=== PATIENT | female | born 1945 | race Caucasian/White ===

== ENCOUNTER 2018-03-21 19:43 | Emergency (ER) | payer OTHER ==
--- OUTSIDE RECORDS SUMMARY | 2018-03-21 19:45 | XMS REPORT | Clinical Summary ---
:1945 Author Organization [facility] Address [address] [place] [address] Care Team Providers Name Role Phone Darrell Nails MD Primary Care Provider Allergies Active Allergy Reactions Severity Noted Date Comments No Known Drug Allergies 08/17/2016 Current Medications Prescription Sig. Disp. Refills Start Date End Date Status alendronate Once a week Active (FOSAMAX) 35 MG tablet aspirin (ECOTRIN) daily Active 81 MG enteric coated tablet coenzyme Q10 200 mg Take 1 Active capsule capsule every day by oral route. 100 mg levothyroxine daily Active (SYNTHROID, LEVOXYL) 150 mcg tablet OMEGA-3 FATTY 1000 mg 1 po Active ACIDS/FISH OIL qd (OMEGA 3 FISH OIL ORAL) raloxifene (EVISTA) daily Active 60 mg tablet cholecalciferol, Take 2,000 Active vitamin D3, Units by (VITAMIN D3) 2,000 mouth daily. unit capsule capsule CYANOCOBALAMIN, Take by Active VITAMIN B-12, mouth. 2500 (VITAMIN B-12 ORAL) mcg per day NAMENDA XR 28 mg TAKE ONE 90 capsule 3 06/08/2017 Active capsule,sprinkle,ER CAPSULE BY 24hr MOUTH EVERY DAY donepezil (ARICEPT) TAKE ONE 30 tablet 11 07/04/2017 Active 10 MG tablet TABLET BY MOUTH ONCE DAILY sertraline (ZOLOFT) Take 2 60 tablet 5 09/24/2017 03/23/2018 Active 50 MG tablets (100 tabletIndications: mg total) by Dementia without mouth daily behavioral for 180 days. disturbance, unspecified dementia type memantine (NAMENDA daily 06/07/2017 Discontinued XR) 28 mg capsule,sprinkle,ER 24hr sertraline (ZOLOFT) 1.5 tablets 08/05/2017 Discontinued 50 MG tablet bid donepezil (ARICEPT) TAKE ONE 30 tablet 5 12/10/2016 06/07/2017 Discontinued 10 MG tablet TABLET BY MOUTH ONCE DAILY donepezil (ARICEPT) TAKE ONE 30 tablet 5 06/07/2017 09/24/2017 Discontinued 10 MG tablet TABLET BY MOUTH ONCE DAILY sertraline (ZOLOFT) TAKE 1 AND 270 tablet 4 08/06/2017 09/24/2017 Discontinued 50 MG tablet 1/2 TABLET BY MOUTH TWICE A DAY Active Problems Problem Noted Date Anosognosia 08/17/2016 Anxiety 08/17/2016 Aphasia 08/17/2016 Cerebral degeneration 08/17/2016 Symptom or sign involving cognitive function and awareness 08/17/2016 Dementia of frontal lobe type 08/17/2016 Depression 08/17/2016 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 Mixed anxiety depressive disorder 08/17/2016 Progressive aphasia 08/17/2016 Encounters Date Type Specialty Care Team Description 09/24/2017 Office Visit Neurology Brant Adams MD Dementia without behavioral disturbance, unspecified dementia type (Primary Dx); 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 Orders Only Neurology Clarisa Brady RN Hypothyroidism, unspecified type (Primary Dx); Memory impairment; Anemia due to vitamin B12 deficiency, unspecified B12 deficiency type 08/05/2017 Refill Neurology Brant Adams MD 07/04/2017 Refill Neurology Aneesh Briseno DO 06/07/2017 Refill Neurology Brant Adams MD 06/07/2017 Refill Neurology Aneesh Briseno DO 04/02/2017 Office Visit Neurology Aneesh Briseno DO Primary progressive aphasia (Primary Dx); Brant Adams MD Mixed anxiety depressive disorder; Frontotemporal dementia after 03/20/2017 Family History Medical History Relation Name Comments Mental illness Brother Lung cancer Father Relation Name Status Comments Brother Father Social History Tobacco Use Types Packs/Day Years Used Date Never Smoker Smokeless Tobacco: Never Used Alcohol Use Drinks/Week oz/Week Comments No Sex Assigned at Date Recorded Not on file Last Filed Vital Signs Vital Sign Reading Time Taken Blood Pressure 109/63 09/24/2017 10:50 AM STUDY DIRECTOR Pulse 76 09/24/2017 10:50 AM STUDY DIRECTOR Temperature - - Respiratory Rate 16 04/02/2017 10:20 AM CDT Oxygen Saturation - - Inhaled Oxygen Concentration - - Weight 74.2 kg (163 lb 8 oz) 09/24/2017 10:49 AM STUDY DIRECTOR Height 167.6 cm (5' 6") 09/24/2017 10:49 AM STUDY DIRECTOR Body Mass Index 26.39 09/24/2017 10:49 AM STUDY DIRECTOR Plan of Treatment Date Type Specialty Care Team Description 03/26/2018 Office Visit Neurology Brant Adams MD [address] [facility] [address] [place] [address] Health Maintenance Due Date Last Done Comments COLONOSCOPY 1995 MAMMOGRAM 1995 SHINGRIX VACCINE (#1) 1995 ZOSTER VACCINE 2005 PNEUMOCOCCAL POLYSACCHARIDE VACCINE AGE 65 AND OVER 2010 PNEUMOCOCCAL-13 2010 INFLUENZA VACCINE 06/12/2018 Results Not on fileafter 03/20/2017 Insurance Payer Benefit Plan / Group Subscriber ID Type Phone Address MEDICARE MEDICARE PART A AND B xxxxxxxxxx Medicare [place], [place] [employer]NA [employer] INDEMNITY xxxxxxxxx Indemnity [phone] [place] [id number]
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
--- NOTE | 2018-03-21 20:54 | RAD REPORT ---
EXAM DESCRIPTION: CT - CTFB CLINICAL HISTORY: Trauma, right-sided facial pain and swelling. COMPARISON: None. TECHNIQUE: Axial 2 mm thick images of the face were obtained with sagittal and coronal reconstructio n images. All CT scans are performed using dose optimization technique as appropriate and may include automated exposure control or mA/KV adjustment according to patient size. FINDINGS: Fractures of the maxillary sinus castillo are noted, including the posterior wall, anterior w all and inferior orbital rim. Moderate hemorrhagic material seen within the right maxillary antrum an d right ethmoid air cells.The paranasal sinuses and mastoids are otherwise clear.The mandible is inta ct. No globe injury is suspected. No vitreous abnormality seen.Skull base appears intact. Moderate right- sided facial soft tissue swelling. IMPRESSION: Right maxillary sinus fractures as detailed.
[2018-03-21 21:04] LABS: Absolute Lymphocytes (CBC) 1.7 K/uL (0.7-4.9); Absolute Monocytes 0.6 K/uL (0.1-1.3); Absolute Neutrophil 7.8 K/uL (1.8-8.0); Basophils % 0.7 % (0-1.3); Hematocrit 40.5 % (36.0-45.0); Lymphocytes % 16.4 % (15.3-44.8); MCH 31.5 pg (27.0-35.0); MCV 92.5 fL (80-100); MPV 7.8 fL (7.6-11.3); Monocytes % 5.9 % (3.3-12.3); RBC Red Blood Cell Count 4.38 M/uL (3.86-4.86)
[2018-03-21 21:06] LABS: Potassium 4.5 mEq/L (3.6-5.0)
[2018-03-21 21:14] LABS: Protime INR 0.95
[2018-03-21] MEDS ORDERED: AMOX/K CLAV 875 MG TAB ONE (21:17)
[2018-03-21] MEDS ORDERED: DERMABOND SKIN ADHESIVE TOP ONE (21:33)
[2018-03-21 22:31] LABS: Urine Blood 2+ (NEG); Urine Glucose NEGATIVE (NEG); Urine Protein NEGATIVE (NEG); Urine Specific Gravity 1.025 (1.005-1.030); Urine pH 5.5 (5.0-7.0)
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
[2018-03-22 01:10] VITALS: TEMP 98.2
[2018-03-22 01:14] VITALS: O2SAT 96
[2018-03-22 01:15] VITALS: BP 139/75
== END 2018-03-22 01:00 | disposition home or self-care (01) ==
LOC: ER 19:43
PROC: 0JQ10ZZ Repair Face Subcutaneous Tissue and Fascia, Open Approach (ICD-10-PCS; principal; 2018-03-22)
DX: S02.401A Maxillary fracture, unspecified side, initial encounter for closed fracture (principal); S01.81XA Laceration without foreign body of other part of head, initial encounter; N39.0 Urinary tract infection, site not specified; W18.39XA Other fall on same level, initial encounter; Y93.01 Activity, walking, marching and hiking; Y92.008 Other place in unspecified non-institutional (private) residence as the place of occurrence of the external cause; Z79.82 Long term (current) use of aspirin; G30.9 Alzheimer's disease, unspecified; F02.80 Dementia in other diseases classified elsewhere, unspecified severity, without behavioral disturbance, psychotic disturbance, mood disturbance, and anxiety
CPT/HCPCS: 12013; 36415; 70450; 70486; 71250; 72125; 76377; 80048; 81003; 85025; 85610; 85730; 99284; G0168

== ENCOUNTER 2018-03-30 16:08 | Emergency (ER) | payer OTHER ==
--- OUTSIDE RECORDS SUMMARY | 2018-03-30 16:11 | XMS REPORT | Clinical Summary ---
:1945 Author Organization [facility] Address [address] [place] [address] Care Team Providers Name Role Phone Darrell [...] MG tablet TABLET BY MOUTH ONCE DAILY amoxicillin-pot TAKE 1 TABLET 0 03/22/2018 Active clavulanate BY MOUTH (AUGMENTIN) 875-125 EVERY 12 mg per tablet HOURS FOR 10 DAYS traMADol (ULTRAM) Take 50 mg by 0 03/22/2018 Active 50 mg tablet mouth every 8 (eight) hours as needed. carBAMazepine Take 1 tablet 90 tablet 11 03/26/2018 03/26/2019 Active (TEGretol) 200 mg (200 mg tabletIndications: total) by Seizures mouth 3 (three) times a day. memantine (NAMENDA daily 06/07/2017 Discontinued XR) 28 [...] 1/2 TABLET BY MOUTH TWICE A DAY sertraline (ZOLOFT) Take 2 60 tablet 5 09/24/2017 03/23/2018 50 MG tablets (100 tabletIndications: mg total) by Dementia without mouth daily behavioral for 180 days. 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 08/17/2016 Progressive aphasia 08/17/2016 Encounters Date Type Specialty Care Team Description 03/28/2018 Procedure Pass Neurology 03/27/2018 Ophth Exam Ophthalmology Sandra Santiago MD 03/27/2018 Procedure Pass Neurology 03/26/2018 - [facility] Neurology Kaiser, Multiple falls (Primary Dx); 03/29/2018 Encounter MD Checo Dementia of frontal lobe type 03/26/2018 Hospital Radiology Brant Adams Traumatic injury of Encounter MD Ailin head, sequela 03/26/2018 Hospital Neurology Brant Adams Seizures Encounter MD Ailin 03/26/2018 Hospital Radiology Brant Adams Traumatic injury of Encounter MD Ailin head, sequela 03/26/2018 Office Visit Neurology Brant Adams Traumatic injury of head, sequela (Primary Dx); MD Ailin Seizures; Aphasia; Alzheimer's disease of other onset without behavioral disturbance 03/26/2018 Orders Only General Internal Kaiser, Jorge Kessler MD 03/26/2018 Procedure Pass Radiology 09/24/2017 Office Visit Neurology Brant Adams Dementia without behavioral disturbance, unspecified dementia type (Primary Dx); MD Ailin 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 Orders Only Neurology Arbones, Hypothyroidism, unspecified type (Primary Dx); YAMILET Mckenna Memory impairment; Anemia due to vitamin B12 deficiency, unspecified B12 deficiency type 08/05/2017 Refill Neurology Brant Adams MD 07/04/2017 Refill Neurology Aneesh Briseno, 06/07/2017 Refill Neurology Brant Adams MD 06/07/2017 Refill Neurology Aneesh Briseno, 04/02/2017 Office Visit Neurology Aneesh Briseno, Primary progressive aphasia (Primary Dx); DO Mixed anxiety depressive disorder; Brant Adams Frontotemporal dementia MD Ailin after 03/29/2017 Family History Medical History Relation Name Comments Mental illness Brother Lung cancer Father Relation Name Status Comments Brother Father Social History Tobacco Use Types Packs/Day Years Used Date Never Smoker Smokeless Tobacco: Never Used Alcohol Use Drinks/Week oz/Week Comments No Sex Assigned at Date Recorded Not on file Last Filed Vital Signs Vital Sign Reading Time Taken Blood Pressure 113/65 03/29/2018 11:50 AM CDT Pulse 88 03/29/2018 11:50 AM CDT Temperature 36.1 C (97 F) 03/29/2018 11:50 AM CDT Respiratory Rate 18 03/29/2018 11:50 AM CDT Oxygen Saturation 96% 03/29/2018 11:50 AM CDT Inhaled Oxygen Concentration - - Weight 76.5 kg (168 lb 11.2 oz) 03/26/2018 9:54 AM CDT Height 170.2 cm (5' 7") 03/26/2018 9:54 AM CDT Body Mass Index 26.42 03/26/2018 9:54 AM CDT Plan of Treatment Date Type Specialty Care Team Description 06/26/2018 Office Visit Neurology Brant Adams MD [address] [facility] [address] [place] [address] Health Maintenance Due Date Last Done Comments BREAST CANCER SCREENING 1995 COLON CANCER SCREENING 1995 SHINGRIX VACCINE (#1) 1995 ZOSTER VACCINE 2005 PNEUMOCOCCAL POLYSACCHARIDE VACCINE AGE 65 AND OVER 2010 PNEUMOCOCCAL-13 2010 INFLUENZA VACCINE 06/12/2018 Procedures Procedure Name Priority Date/Time Associated Diagnosis Comments EEG AWAKE/DROWSY Routine 03/26/2018 2:32 PM Seizures Results for this LESS THAN 41 MIN CDT procedure are in the results section. after 03/29/2017 Results Estimated GFR (03/29/2018 5:10 AM)Only the most recent of2 resultswithin the time period is included. Component Value Ref Range GFR Non Af Amer 54 (A) mL/min/1.73 m2 GFR Af Amer 66 mL/min/1.73 m2 Comment: Chronic kidney disease: <60 mL/min/1.73m2 Kidney failure: <15 mL/min/1.73m2 The estimated GFR is calculated from the IDMS-traceable Modification of Diet in Renal Disease Equation. The accuracy of the calculation is poor when the creatinine is normal. Calculated values >90 mL/min/1.73m2 are not reported. This equation has not been validated in children (<18 years), women, the elderly (>70 years), or ethnic groups other than Caucasians and Americans. Specimen Performing Laboratory Plasma specimen [facility] DEPARTMENT OF PATHOLOGY AND GENOMIC MEDICINE [address] [place] [address] CBC with platelet and differential (03/29/2018 5:10 AM)Only the most recent of2 resultswithin the time period is included. Component Value Ref Range WBC 7.59 4.50 - 11.00 k/uL RBC 4.32 4.20 - 5.50 m/uL HGB 13.7 12.0 - 16.0 g/dL HCT 41.3 37.0 - 47.0 % MCV 95.6 82.0 - 100.0 fL MCH 31.7 27.0 - 34.0 pg MCHC 33.2 31.0 - 37.0 g/dL RDW - SD 44.9 37.0 - 55.0 fL MPV 9.2 8.8 - 13.2 fL Platelet count 170 150 - 400 k/uL Nucleated RBC 0.00 /100 WBC Neutrophils 53.4 39.0 - 69.0 % Lymphocytes 37.5 25.0 - 45.0 % Monocytes 5.7 0.0 - 10.0 % Eosinophils 2.6 0.0 - 5.0 % Basophils 0.5 0.0 - 1.0 % Immature granulocytes 0.3Comment: "Immature granulocytes" 0.0 - 1.0 % (promyelocytes, myelocytes, metamyelocytes) Specimen Performing Laboratory Blood [facility] DEPARTMENT OF PATHOLOGY AND [address] [address] Magnesium level (03/29/2018 5:10 AM) Component Value Ref Range Magnesium 2.2 1.6 - 2.4 mg/dL Specimen Performing Laboratory Plasma specimen [facility] DEPARTMENT PATHOLOGY AND [address] [address] Basic metabolic panel (03/29/2018 5:10 AM) Component Value Ref Range Sodium 142 135 - 148 mEq/L Potassium 4.0 3.5 - 5.0 mEq/L Chloride 104 98 - 112 mEq/L CO2 26 24 - 31 mEq/L Anion gap 12@ANIO 7 - 15 mEq/L BUN 13 8 - 23 mg/dL Creatinine 1.0 (H) 0.5 - 0.9 mg/dL Glucose 101 (H) 65 - 99 mg/dL Calcium 8.8 8.8 - 10.2 mg/dL Specimen Performing Laboratory Plasma specimen [facility] DEPARTMENT OF PATHOLOGY AND [address] [address] MRI Brain Wo Contrast (03/28/2018 4:41 PM)Only the most recent of2 resultswithin the time period is included. Specimen Performing Laboratory [address] [address] Narrative EXAMINATION:MRI BRAIN WO CONTRAST CLINICAL HISTORY:MARTÍNEZ PROTOCOL FOR NPH, status post lumbar puncture with 15 mL of CSF removed. COMPARISON:Brain MRI on 03/27/2018 and FDG PET/CT on 10/25/2015. TECHNIQUE: Noncontrast brain MRI, including 3D T1 WARREN and pCASL with PLD of 2.5 seconds. Regional brain segmentation and volumetric analysis was processed with Neuroreader software on an independent workstation and reviewed. FINDINGS: The brain appears structurally stable with no evidence of acute infarction, hemorrhage, mass lesion, or midline shift. Again noted is cerebral volume loss moderately advanced for age, relatively sparing the occipital lobes. Hippocampal volume is within normal limits for age. There is marked ventriculomegaly of the lateral ventricles. There is no extra-axial fluid collection. Right Hippocampus: 3.53 mL, z-score -0.01. Left Hippocampus: 3.31 mL, z-score -0.24. Right Frontal Lobe: 117.6 mL, z-score -2.51. Left Frontal Lobe: 107.0 mL, z-score -2.87. Right Parietal Lobe: 65.6 mL, z-score -2.09. Left Parietal Lobe: 58.4 mL, z-score -2.75. Right Occipital Lobe: 38.9 mL, z-score -0.34. Left Occipital Lobe: 35.5 mL, z-score -0.86. Right Temporal Lobe: 62.1 mL, z-score -2.82. Left Temporal Lobe: 51.6 mL, z-score -3.56. Right Lateral Ventricle: 51.5 mL, z-score 4.00. Left Lateral Ventricle: 76.4 mL, z-score 5.50. Again noted is hypoperfusion of left more than right cerebral hemispheres with relative sparing of the occipital lobes. After lumbar puncture, there is mildly increased cerebral perfusion in the right cerebral hemisphere, mostly along right perirolandic distribution. IMPRESSION: 1. Cerebral volume loss moderately advanced for age associated with hypoperfusion of left more than right cerebral hemispheres. 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 Asymmetric corticobasal degeneration cannot be excluded. 2. Marked ventriculomegaly of the lateral ventricles likely from disproportionate central volume loss although superimposed normal pressure hydrocephalus cannot be excluded. 3. After lumbar puncture, mildly increased cerebral perfusion in the right cerebral hemisphere, mostly along right perirolandic distribution. [facility]-[id number] Procedure Note [facility], Radiology Results Incoming - 03/28/2018 10:24 PM CDT EXAMINATION: MRI BRAIN WO CONTRAST CLINICAL HISTORY: MARTÍNEZ PROTOCOL FOR NPH, status post lumbar puncture with 15 mL of CSF removed. COMPARISON: Brain MRI on 03/27/2018 and FDG PET/CT on 10/25/2015. TECHNIQUE: Noncontrast brain MRI, including 3D T1 WARREN and pCASL with PLD of 2.5 seconds. Regional brain segmentation and volumetric analysis was processed with Neuroreader software on an independent workstation and reviewed. FINDINGS: The brain appears structurally stable with no evidence of acute infarction, hemorrhage, mass lesion, or midline shift. Again noted is cerebral volume loss moderately advanced for age, relatively sparing the occipital lobes. Hippocampal volume is within normal limits for age. There is marked ventriculomegaly of the lateral ventricles. There is no extra-axial fluid collection. Right Hippocampus: 3.53 mL, z-score -0.01. Left Hippocampus: 3.31 mL, z-score -0.24. Right Frontal Lobe: 117.6 mL, z-score -2.51. Left Frontal Lobe: 107.0 mL, z-score -2.87. Right Parietal Lobe: 65.6 mL, z-score -2.09. Left Parietal Lobe: 58.4 mL, z-score -2.75. Right Occipital Lobe: 38.9 mL, z-score -0.34. Left Occipital Lobe: 35.5 mL, z-score -0.86. Right Temporal Lobe: 62.1 mL, z-score -2.82. Left Temporal Lobe: 51.6 mL, z-score -3.56. Right Lateral Ventricle: 51.5 mL, z-score 4.00. Left Lateral Ventricle: 76.4 mL, z-score 5.50. Again noted is hypoperfusion of left more than right cerebral hemispheres with relative sparing of the occipital lobes. After lumbar puncture, there is mildly increased cerebral perfusion in the right cerebral hemisphere, mostly along right perirolandic distribution. IMPRESSION: 1. Cerebral volume loss moderately advanced for age associated with hypoperfusion of left more than right cerebral hemispheres. 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 Asymmetric corticobasal degeneration cannot be excluded. 2. Marked ventriculomegaly of the lateral ventricles likely from disproportionate central volume loss although superimposed normal pressure hydrocephalus cannot be excluded. 3. After lumbar puncture, mildly increased cerebral perfusion in the right cerebral hemisphere, mostly along right perirolandic distribution. [facility]-[id number] IR Lumbar Puncture by Radiology (03/28/2018 10:03 AM) Specimen Performing Laboratory [facility] [address] [place] [address] Narrative EXAMINATION:IR LUMBAR PUNCTURE CLINICAL HISTORY:Normal pressure hydrocephalus COMPARISON:None. FINDINGS: Informed consent was obtained prior to exam. Total fluoroscopy time was 12 seconds. Two images were stored during fluoroscopy to document the site of needle placement. The patient was prepped in a sterile fashion in the prone position. 1% Xylocaine was utilized for local anesthesia. Utilizing fluoroscopic guidance a 22-gauge spinal needle was placed into the subarachnoid space at the L3-4 level. 15 mL of cerebrospinal fluid was withdrawn and sent to the laboratory for analysis. There were no complications. The primary surgeon was Dr. Gramajo. There were no assistants. There was no significant blood loss. The patient was transferred to the recovery room and then back to the floor after she met discharge criteria. IMPRESSION: Successful fluoroscopic-guided lumbar puncture to evaluate normal pressure hydrocephalus. [facility]-[id number] Procedure Note Interface, Radiology Results Incoming - 03/28/2018 11:28 AM CDT EXAMINATION: IR LUMBAR PUNCTURE CLINICAL HISTORY: Normal pressure hydrocephalus COMPARISON: None. FINDINGS: Informed consent was obtained prior to exam. Total fluoroscopy time was 12 seconds. Two images were stored during fluoroscopy to document the site of needle placement. The patient was prepped in a sterile fashion in the prone position. 1% Xylocaine was utilized for local anesthesia. Utilizing fluoroscopic guidance a 22-gauge spinal needle was placed into the subarachnoid space at the L3-4 level. 15 mL of cerebrospinal fluid was withdrawn and sent to the laboratory for analysis. There were no complications. The primary surgeon was Dr. Gramajo. There were no assistants. There was no significant blood loss. The patient was transferred to the recovery room and then back to the floor after she met discharge criteria. IMPRESSION: Successful fluoroscopic-guided lumbar puncture to evaluate normal pressure hydrocephalus. [facility]-[id number] Cryptococcal antigen, screen (03/28/2018 9:57 AM) Component Value Ref Range Cryptococcal Ag Negative - No Cryptococcus antigen detected. Comment: Specimen Information Specimen Source: CSF (Spinal Fluid) Specimen Site: CSF (spinal fluid) Specimen Performing Laboratory Cerebrospinal fluid - CSF (spinal fluid) [facility] DEPARTMENT OF PATHOLOGY AND GENOMIC MEDICINE [address] [place] [address] Oligoclonal banding, CSF (03/28/2018 9:57 AM) Component Value Ref Range Protein, CSF 29 15 - 45 mg/dL Prealbumin, CSF 4.7 3.5 - 11.1 % Albumin, CSF 61.3 40.8 - 66.2 % Alpha 1, CSF 3.8 2.3 - 6.4 % Alpha 2, CSF 8.7 6.1 - 12.6 % Beta, CSF 15.2 11.7 - 24.1 % Gamma, CSF 6.3 5.6 - 12.2 % CSF extended interpretation See CommentComment: No oligoclonal bands are seen. CSF interpretation See CommentComment: Arron Holliday MD; Tremaine Vicente PhD; González Gross MD PhD Specimen Performing Laboratory Cerebrospinal fluid [facility] DEPARTMENT OF PATHOLOGY AND GENOMIC MEDICINE [address] [place] [address] Gram stain (03/28/2018 9:57 AM) Component Value Ref Range Gram stain isolate Rare WBC's No organisms seen Comment: Specimen Information Specimen Source: CSF (Spinal Fluid) Specimen Site: CSF (spinal fluid) Specimen Performing Laboratory Cerebrospinal fluid - CSF (spinal fluid) [facility] DEPARTMENT OF PATHOLOGY AND [address] [address] CSF cell count with differential (03/28/2018 9:57 AM) Component Value Ref Range Color, CSF Colorless Appearance, CSF Clear RBC, CSF 122 (H) 0 - 1 /CMM WBC, CSF 3 0 - 5 /CMM CSF mononuclear cell 3/CMM Specimen Performing Laboratory Cerebrospinal fluid [facility] DEPARTMENT OF PATHOLOGY AND [facility] [address] [place] [address] VDRL, CSF screen (03/28/2018 9:57 AM) Component Value Ref Range VDRL, CSF screen Non-reactive Non-reactive Specimen Performing Laboratory Cerebrospinal fluid [facility] DEPARTMENT OF PATHOLOGY AND [facility] [address] [place] [address] Glucose level, CSF (03/28/2018 9:57 AM) Component Value Ref Range Glucose, CSF 62 40 - 70 mg/dL Specimen Performing Laboratory Cerebrospinal fluid [facility] DEPARTMENT OF PATHOLOGY [address] [address] Syphilis treponemal IgG (03/26/2018 9:20 PM) Component Value Ref Range Syphilis treponemal IgG Non-reactiveComment: Non-reactive: No Non-reactive serological evidence of Syphilis infection Specimen Performing Laboratory Serum [facility] DEPARTMENT OF PATHOLOGY AND [address] [address] SUMMER titer (03/26/2018 9:20 PM) Component Value Ref Range SUMMER titer >1:320 (A) Not-Detected SUMMER titer 1 1:640 (A) Not-Detected SUMMER pattern Centromere (A) Not-Detected Specimen Performing Laboratory Blood [facility] [address] [address] Sedimentation rate (03/26/2018 9:20 PM) Component Value Ref Range Sedimentation rate 11 0 - 20 mm/hr Specimen Performing Laboratory Blood [facility] [address] [address] SUMMER (03/26/2018 9:20 PM) Component Value Ref Range SUMMER screen Positive (A) Negative Specimen Performing Laboratory Blood [facility] [address] [address] Thyroid stimulating hormone (03/26/2018 9:20 PM) Component Value Ref Range TSH 3.79 0.27 - 4.20 uIU/mL Specimen Performing Laboratory Plasma specimen [facility] [address] [address] T4, free (03/26/2018 9:20 PM) Component Value Ref Range T4, free 1.4 0.9 - 1.7 ng/dL Specimen Performing Laboratory Plasma specimen [facility] [address] [address] Folate level (03/26/2018 9:20 PM) Component Value Ref Range Folate 7.8 4.8 - 24.2 ng/mL Specimen Performing Laboratory Serum [address] [address] Vitamin B12 level (03/26/2018 9:20 PM) Component Value Ref Range Vitamin B12 >1600 (H) 211 - 946 pg/mL Comment: Significant overlap exists between normal and deficiency states. However, most patients with deficiencies will have Serum B12 <200 pg/mL. Specimen Performing Laboratory Serum [facility] [address] [address] Ammonia level (03/26/2018 9:20 PM) Component Value Ref Range Ammonia 41 11 - 51 umol/L Specimen Performing Laboratory Blood [facility] [address] [address] Comprehensive metabolic panel (03/26/2018 9:20 PM) Component Value Ref Range Sodium 144 135 - 148 mEq/L Potassium 4.6 3.5 - 5.0 mEq/L Chloride 104 98 - 112 mEq/L CO2 28 24 - 31 mEq/L Anion gap 12@ANIO 7 - 15 mEq/L BUN 18 8 - 23 mg/dL Creatinine 1.1 (H) 0.5 - 0.9 mg/dL Glucose 100 (H) 65 - 99 mg/dL Calcium 9.3 8.8 - 10.2 mg/dL Protein 7.1 6.3 - 8.3 g/dL Comment: [place] 4.6-7.0 g/dL 1 week 4.4-7.6 g/dL 7 months-1year5.1-7.3 g/dL 1-2 years5.6-7.5 g/dL >3 years6.0-8.0 g/dL 18-150 6.3-8.3 g/dL Albumin 3.1 (L) 3.5 - 5.0 g/dL A/G ratio 0.8 0.7 - 3.8 Alkaline phosphatase 40 35 - 104 U/L AST 24 10 - 35 U/L ALT 15 5 - 50 U/L Total bilirubin 0.3 0.0 - 1.2 mg/dL Specimen Performing Laboratory Plasma specimen [facility] DEPARTMENT OF PATHOLOGY AND GENOMIC MEDICINE [address] [place] [address] Outpatient EEG (03/26/2018 2:32 PM) Narrative EEG AWAKE AND DROWSY Date of Service: 03/26/18 Awake Recordings: The occipital dominant rhythm is 6 Hz and is poorly sustained. 4-5 Hz and 1.5-3 Hz activity is present in all regions. 18-22 Hz activity was present in all regions. Sleep Recording: No sleep was recorded. Hyperventilation: Was not performed. Photic Stimulation: Was not performed. Impression: The findings are consistent with a diffuse disturbance in brain function. No seizures occurred. ICD-10 Code: R569 CT Maxillofacial Wo Contrast (03/26/2018 12:45 PM) Specimen Performing Laboratory [address] [address] Narrative EXAMINATION: CT MAXILLOFACIAL WO CONTRAST CLINICAL HISTORY: S09.90XS Unspecified injury of headsequela, RT facial injry from blunt trauma COMPARISON:None TECHNIQUE: Axial noncontrastenhanced images through the maxillofacial bones were obtained with bone and soft tissue algorithms. Coronal and sagittal reconstructions were also performed.CT scans are performed using radiation dose reduction techniques. Technical factors are evaluated and adjusted to ensure appropriate moderation of exposure. Automated dose management technology is applied to adjust radiation exposure while achieving a diagnostic quality image. FINDINGS: There is a large amount of hyperdense material filling the right maxillary sinus consistent with hemorrhage. There is a comminuted fracture through the floor of the right orbit with minimal bone displacement. I do not see definite evidence of muscle entrapment. There is comminuted fracture of the anterior and posterior castillo of the right maxillary sinus with some bone displacement. There is partial opacification of the right ethmoid sinus with nondisplaced fractures of the medial wall of the right orbit. There is comminuted fracture of the lateral wall of the right orbit with some areas of buckling. There are areas of angulation of the distal nasal bones which could be from recent or old fractures. The nasal septum is deviated towards the right. There is mild mucosal thickening in the inferior left maxillary sinus. The study was not performed for proper evaluation of the intracranial structures. IMPRESSION: Comminuted fractures of the floor and lateral castillo of the right orbit with some bone displacement and some buckling of the lateral wall. Nondisplaced fractures of the medial wall of the right orbit. Comminuted fractures in the anterior and posterior castillo of the right maxillary sinus with some areas of bone displacement. Age indeterminant nasal bone fractures. Findings were discussed with Dr. Adams at 1305 hours. He verbalized understanding. [facility]-[id number] Procedure Note Hm Interface, Radiology Results Incoming - 03/26/2018 1:10 PM CDT EXAMINATION: CT MAXILLOFACIAL WO CONTRAST CLINICAL HISTORY: S09.90XS Unspecified injury of head sequela, RT facial injry from blunt trauma COMPARISON: None TECHNIQUE: Axial noncontrast enhanced images through the maxillofacial bones were obtained with bone and soft tissue algorithms. Coronal and sagittal reconstructions were also performed. CT scans are performed using radiation dose reduction techniques. Technical factors are evaluated and adjusted to ensure appropriate moderation of exposure. Automated dose management technology is applied to adjust radiation exposure while achieving a diagnostic quality image. FINDINGS: There is a large amount of hyperdense material filling the right maxillary sinus consistent with hemorrhage. There is a comminuted fracture through the floor of the right orbit with minimal bone displacement. I do not see definite evidence of muscle entrapment. There is comminuted fracture of the anterior and posterior castillo of the right maxillary sinus with some bone displacement. There is partial opacification of the right ethmoid sinus with nondisplaced fractures of the medial wall of the right orbit. There is comminuted fracture of the lateral wall of the right orbit with some areas of buckling. There are areas of angulation of the distal nasal bones which could be from recent or old fractures. The nasal septum is deviated towards the right. There is mild mucosal thickening in the inferior left maxillary sinus. The study was not performed for proper evaluation of the intracranial structures. IMPRESSION: Comminuted fractures of the floor and lateral castillo of the right orbit with some bone displacement and some buckling of the lateral wall. Nondisplaced fractures of the medial wall of the right orbit. Comminuted fractures in the anterior and posterior castillo of the right maxillary sinus with some areas of bone displacement. Age indeterminant nasal bone fractures. Findings were discussed with Dr. Adams at 1305 hours. He verbalized understanding. [id number] after 03/29/2017 Insurance Payer Benefit Plan / Group Subscriber ID Type Phone Address MEDICARE MEDICARE PART A AND B xxxxxxxxxx Medicare [place], [place] AETNA AETNA [facility] INDEMNITY xxxxxxxxx Indemnity [phone] [place] [phone]
--- NOTE | 2018-03-30 16:59 | ER ---
Nurse's Notes [facility] Name: Domitila Corley Age: 72 yrs Sex: Female : 1945 Arrival Date: 03/30/2018 Time: 16:11 Bed 30 Private MD: Diagnosis: Encounter for general adult medical examination Presentation: 03/30 16:26 Presenting complaint: She had a spinal tap at [facility] and they called back and said la1 that she had bacteria in her spinal fluid and to come to the ER, pt has not been running fever, no complaining of pain. Transition of care: patient was not received from another setting of care. Onset of symptoms was March 30, 2018. Initial Sepsis Screen: Does the patient meet any 2 criteria? No. Patient's initial sepsis screen is negative. Does the patient have a suspected source of infection? No. Patient's initial sepsis screen is negative. Care prior to arrival: None. 16:26 Method Of Arrival: Wheelchair la1 16:26 Acuity: LYNNE 2 la1 Historical: - Allergies: 16:27 No Known Allergies; la1 - PMHx: 16:27 Alzheimers; Osteoporosis; Thyroid problem; la1 - Immunization history:: Adult Immunizations up to date. - Social history:: Smoking status: Patient/guardian denies using tobacco. Screenin:03 Abuse screen: Denies threats or abuse. Denies injuries from another. Nutritional lk1 screening: No deficits noted. Tuberculosis screening: No symptoms or risk factors identified. Fall Risk None identified. Assessment: 17:00 General: Appears in no apparent distress. Behavior is calm, cooperative, appropriate lk1 for age. Pain: Denies pain. Neuro: Level of Consciousness is awake, alert, confused, Oriented to patient has dementia and is WNL per family. Cardiovascular: Capillary refill is brisk Patient's skin is warm and dry. Respiratory: Airway is patent Respiratory effort is even, unlabored, Respiratory pattern is regular, symmetrical. GI: Abdomen is non-distended. : No signs and/or symptoms were reported regarding the genitourinary system. EENT: No signs and/or symptoms were reported regarding the EENT system. Derm: No signs and/or symptoms reported regarding the dermatologic system. Musculoskeletal: No signs and/or symptoms reported regarding the musculoskeletal system. 18:03 Reassessment: MD ordered to stop antibiotic infusion per Khadijah MDs and patient will lk1 follow up Sunday. Vital Signs: 16:27 BP 103 / 66; Pulse 72; Resp 19; Temp 97.7(TE); Pulse Ox 100% on R/A; Weight 75.75 kg; la1 17:45 BP 118 / 62; Pulse 68; Resp 16; Pulse Ox 100% on R/A; Pain 0/10; lk1 ED Course: 16:11 Patient arrived in ED. sb2 16:27 Triage completed. la1 16:28 Arm band placed on left wrist. la1 16:30 Saúl Ochoa MD is Attending Physician. gs 17:11 Hannah Michele RN is Primary Nurse. lk1 17:20 Inserted saline lock: 20 gauge in right antecubital area, using aseptic technique. lk1 18:04 Patient has correct armband on for positive identification. Bed in low position. Call lk1 light in reach. Adult w/ patient. 18:18 No provider procedures requiring assistance completed. IV discontinued, intact, lk1 bleeding controlled, No redness/swelling at site. Pressure dressing applied. Administered Medications: 17:20 Drug: Rocephin - (cefTRIAXone) 2 grams Route: IVPB; Infused Over: 30 mins; Site: right lk1 antecubital; 17:45 Follow up: IV Status: Completed infusion lk1 17:45 Drug: vancoMYCIN 1 grams Route: IVPB; Infused Over: 2 hrs; Site: right antecubital; lk1 18:02 Follow up: Response: No adverse reaction; IV Status: Order to discontinue infusion lk1 17:52 CANCELLED (Patient Refused): vancoMYCIN 1 grams IVPB once over 2 hrs Outcome: 16:58 ER care complete, transfer ordered by . 17:58 Discharge ordered by . 18:16 Discharged to home ambulatory, with family. lk1 18:16 Condition: good 18:16 Discharge instructions given to patient, family, Instructed on discharge instructions, follow up and referral plans. medication usage, safety practices, Demonstrated understanding of instructions, follow-up care, medications. 18:20 Patient left the ED. lk1 Signatures: Hola Parsons RN RN la1 Hannah Michele RN RN lk1 Saúl Ochoa MD MD Carla Del Castillo sb2
--- NOTE | 2018-03-30 16:59 | EDPHYS ---
Physician Documentation [facility] Name: Domitila Corley Age: 72 yrs Sex: Female : 1945 Arrival Date: 03/30/2018 Time: 16:11 Bed 30 Private MD: ED Physician Saúl Ochoa HPI: 03/30 17:12 This 72 yrs old Female presents to ER via Wheelchair with complaints of gs Abnormal Lab Results. 17:12 had lp grow out g + cocci in clusters referred to er for evaluation. Onset: The gs symptoms/episode began/occurred today. Severity of symptoms: At their worst the symptoms were mild in the emergency department the symptoms are unchanged. The patient has not experienced similar symptoms in the past. The patient has been recently seen by a physician:. Historical: - Allergies: 16:27 No Known Allergies; la1 - PMHx: 16:27 Alzheimers; Osteoporosis; Thyroid problem; la1 - Immunization history:: Adult Immunizations up to date. - Social history:: Smoking status: Patient/guardian denies using tobacco. ROS: 17:12 Unable to obtain ROS due to baseline dementia. gs Exam: 17:12 Neck: Trachea midline, no thyromegaly or masses palpated, and no cervical gs lymphadenopathy. Supple, full range of motion without nuchal rigidity, or vertebral point tenderness. No Meningismus. Cardiovascular: Regular rate and rhythm with a normal S1 and S2. No gallops, murmurs, or rubs. Normal PMI, no JVD. No pulse deficits. Respiratory: Lungs have equal breath sounds bilaterally, clear to auscultation and percussion. No rales, rhonchi or wheezes noted. No increased work of breathing, no retractions or nasal flaring. Abdomen/GI: Soft, non-tender, with normal bowel sounds. No distension or tympany. No guarding or rebound. No evidence of tenderness throughout. Back: No spinal tenderness. No costovertebral tenderness. Full range of motion. Skin: Warm, dry with normal turgor. Normal color with no rashes, no lesions, and no evidence of cellulitis. MS/ Extremity: Pulses equal, no cyanosis. Neurovascular intact. Full, normal range of motion. 17:12 Constitutional: The patient appears alert, awake. 17:12 Neuro: Exam negative for acute changes, focal neuro deficits, motor deficits, sensory deficits. Vital Signs: 16:27 BP 103 / 66; Pulse 72; Resp 19; Temp 97.7(TE); Pulse Ox 100% on R/A; Weight 75.75 kg; la1 17:45 BP 118 / 62; Pulse 68; Resp 16; Pulse Ox 100% on R/A; Pain 0/10; lk1 MDM: 16:41 Patient medically screened. 17:12 Differential Diagnosis altered mental status, sepsis, meningitis, skin contaminant. Other consultation: dr sanchez will see at [facility] initially wanted patient seen at [facility] for results upon discussing with dr zhang who spoke with dr sanchez pt can wait until full culture result and dr lamar or dr sanchez will call back patient. both drs know pt is asymptomatic.. 03/30 18:04 Order name: IV Start; Complete Time: 18:04 lk Administered Medications: 17:20 Drug: Rocephin - (cefTRIAXone) 2 grams Route: IVPB; Infused Over: 30 mins; Site: right lk1 antecubital; 17:45 Follow up: IV Status: Completed infusion lk 17:45 Drug: vancoMYCIN 1 grams Route: IVPB; Infused Over: 2 hrs; Site: right antecubital; lk1 18:02 Follow up: Response: No adverse reaction; IV Status: Order to discontinue infusion [facility] 17:52 CANCELLED (Patient Refused): vancoMYCIN 1 grams IVPB once over 2 hrs Disposition: 03/30/18 17:58 Discharged to Home. Impression: Encounter for general adult medical examination. - Condition is Stable. - Medication Reconciliation Form, Thank You Letter, Antibiotic Education, Prescription Opioid Use form. - Follow up: Private Physician; When: 2 - 3 days; Reason: Re-evaluation by your physician. Signatures: Hola Parsons RN RN la1 Hannah Michele RN RN lk1 Saúl Ochoa MD MD Corrections: (The following items were deleted from the chart) 17:52 16:59 vancoMYCIN 1 grams IVPB once over 2 hrs ordered. [facility] 17:56 17:12 Other consultation: dr sanchez will see at [facility], [facility] 17:56 16:58 03/30/2018 16:58 Transfer ordered to [facility]. Diagnosis is Meningitis, unspecified. Reason for transfer: Higher level of care. Accepting physician is tbd. Condition is Stable. Problem is new. Symptoms are unchanged. 18:20 17:58 03/30/2018 17:58 Discharged to Home. Impression: Encounter for general adult lk1 medical examination. Condition is Stable. Forms are Medication Reconciliation Form, Thank You Letter, Antibiotic Education, Prescription Opioid Use. Follow up: Private Physician; When: 2 - 3 days; Reason: Re-evaluation by your physician.
[2018-03-30] MEDS ORDERED: NA CHLORIDE 0.9% 250 ML ONE (17:18)
[2018-03-30] MEDS ORDERED: VANCOMYCIN 1 GM/VIAL ONE (17:18)
[2018-03-30] MEDS ORDERED: CEFTRIAXONE/SWI 1gm 2 GM/20 ML SYR ONE (17:18)
[2018-03-30 18:32] VITALS: TEMP 97.7; O2SAT 100
[2018-03-30 18:33] VITALS: BP 118/62
== END 2018-03-30 18:20 | disposition home or self-care (01) ==
LOC: ER 16:08
DX: Z00.00 Encounter for general adult medical examination without abnormal findings (principal); G30.9 Alzheimer's disease, unspecified; F02.80 Dementia in other diseases classified elsewhere, unspecified severity, without behavioral disturbance, psychotic disturbance, mood disturbance, and anxiety
CPT/HCPCS: 96365; 96367; 99283; J0696

== ENCOUNTER 2018-04-11 08:35 | Emergency (ER) | payer OTHER ==
--- OUTSIDE RECORDS SUMMARY | 2018-04-11 08:37 | XMS REPORT | Clinical Summary ---
:1945 Author Organization [facility] Address [address] [place] [address] Care Team Providers Name Role Phone Darrell [...] Encounters Date Type Specialty Care Team Description 04/10/2018 Refill Neurology Saritha Rojas RN 04/02/2018 Telephone Neurology Clarisa Brady RN 03/28/2018 Procedure Pass Neurology 03/27/2018 Ophth Exam Ophthalmology Sandra Santiago MD 03/27/2018 Procedure Pass Neurology 03/26/2018 - Hospital Neurology Checo Saab, Multiple falls (Primary Dx) ; 03/29/2018 Encounter Dementia of frontal lobe type 03/26/2018 Hospital Radiology Brant Adams Traumatic injury of Encounter C., head, sequela 03/26/2018 Hospital Neurology Brant Adams Seizures Encounter C., 03/26/2018 Hospital Radiology Brant Adams Traumatic injury of Encounter C., head, sequela 03/26/2018 Office Visit Neurology Brant Adams Traumatic injury of head, sequela (Primary Dx); MD Ailin Seizures; Aphasia; Alzheimer's disease of other onset without behavioral disturbance 03/26/2018 Orders Only General Internal Checo Saab, Medicine 09/24/2017 Office Visit Neurology Brant Adams Dementia [...] MD 06/07/2017 Refill Neurology Aneesh Briseno DO after 04/10/2017 Family History Medical History Relation Name Comments [...] 06/26/2018 Office Visit Neurology Brant Adams MD [address] [place] [address] Health Maintenance Due Date Last [...] procedure are in the results section. after 04/10/2017 Results Estimated GFR (03/29/2018 5:10 AM)Only the [...] and Americans. Specimen Performing Laboratory Plasma specimen [facility] DEPARTMENT OF PATHOLOGY AND GENOMIC MEDICINE [address] [place] [address] CBC with platelet and differential (03/29/2018 5:10 [...] (promyelocytes, myelocytes, metamyelocytes) Specimen Performing Laboratory Blood [facility] DEPARTMENT OF PATHOLOGY AND [address] [address] Magnesium level (03/29/2018 5:10 AM) Component Value Ref Range Magnesium 2.2 1.6 - 2.4 mg/dL Specimen Performing Laboratory Plasma specimen [facility] DEPARTMENT OF PATHOLOGY AND [address] [address] Basic metabolic panel (03/29/2018 5:10 AM) Component [...] 10.2 mg/dL Specimen Performing Laboratory Plasma specimen [facility] DEPARTMENT OF PATHOLOGY AND [address] [address] MRI Brain Wo Contrast (03/28/2018 4:41 PM)Only the most recent of2 resultswithin the time period is included. Specimen Performing Laboratory [address] [address] Narrative EXAMINATION:MRI BRAIN WO CONTRAST CLINICAL HISTORY:MARTÍNEZ [...] cerebral hemisphere, mostly along right perirolandic distribution. [facility]-[id number] Procedure Note [facility][1], Radiology Results Incoming - 03/28/2018 10:24 PM [...] cerebral hemisphere, mostly along right perirolandic distribution. [facility]-[id number] IR Lumbar Puncture by Radiology (03/28/2018 10:03 AM) Specimen Performing Laboratory [address] [address] Narrative EXAMINATION:IR LUMBAR PUNCTURE CLINICAL HISTORY:Normal pressure [...] lumbar puncture to evaluate normal pressure hydrocephalus. [facility]-[id number] Procedure Note [facility][1], Radiology Results Incoming - 03/28/2018 11:28 AM [...] lumbar puncture to evaluate normal pressure hydrocephalus. [facility]-[id number] AB42 Tau, CSF (03/28/2018 9:57 AM) Component Value Ref Range AB42 Tau, CSF SEE NOTE Comment: [facility] Phospho-Tau / Total-Tau / A Beta 42 CSF Analysis and Interp. Interpretation:Alzheimer Disease This test detected a reduced A-beta 42 to T-tau Index (ATI) and elevated levels of P-tau protein in the cerebrospinal fluid (CSF). Test Technical Result A-beta 42 337.8 pg/mL T-Tau 706.65pg/mL P-Tau86.2 pg/mL ATI 0.31 Reference Range Not consistent with AD:P-Tau <54 pg/mL and ATI >1.2, Borderline:PTau 54-68 pg/mL and/or ATI 0.8-1.2, AD:P-Tau >68 pg/mL and ATI <0.8 Comments: This analysis detected levels of CSF A-beta 42 peptide (A-beta 42) and total tau (T-tau) proteins, reflected in a reduced A-beta 42 to T-tau Index (ATI). The level of phospho-tau (P-tau) was also elevated. These results are consistent with a diagnosis of Alzheimer's disease (AD). Recommendations: Health care providers, please contact the [email or web address] Client Services Department at if you wish to speak with a clinical data migration consultant regarding this test result. sent to [facility] performing site [email or web address] [address] [place] [id number] Specimen Performing Laboratory [facility] DEPARTMENT OF PATHOLOGY AND GENOMIC MEDICINE [address] [place] [address] Cryptococcal antigen, screen (03/28/2018 9:57 AM) Component Value Ref Range Cryptococcal Ag Negative - No Cryptococcus antigen detected. Comment: Specimen Information Specimen Source: CSF (Spinal Fluid) Specimen Site: CSF (spinal fluid) Specimen Performing Laboratory Cerebrospinal fluid - CSF (spinal fluid) [facility] DEPARTMENT OF PATHOLOGY AND GENOMIC MEDICINE [address] [place] [address] Oligoclonal banding, CSF (03/28/2018 9:57 AM) Component [...] MD PhD Specimen Performing Laboratory Cerebrospinal fluid [facility] DEPARTMENT OF PATHOLOGY AND GENOMIC MEDICINE [address] [place] [address] Gram stain (03/28/2018 9:57 AM) Component Value Ref Range Gram stain isolate Rare WBC's No organisms seen Comment: Specimen Information Specimen Source: CSF (Spinal Fluid) Specimen Site: CSF (spinal fluid) Specimen Performing Laboratory Cerebrospinal fluid - CSF (spinal fluid) [facility] DEPARTMENT OF PATHOLOGY AND GENOMIC MEDICINE [address] [place] [address] CSF culture (03/28/2018 9:57 AM) Component Value Ref Range CSF culture isolate Staphylococcus hominis Recovered in Broth only: susceptibility to follow (A) Comment: Specimen Information Specimen Source: CSF (Spinal Fluid) Specimen Site: CSF (spinal fluid) Specimen Performing Laboratory Cerebrospinal fluid - CSF (spinal fluid) [facility] DEPARTMENT OF PATHOLOGY AND [facility] MEDICINE [address] [place] [address] Organism Antibiotic Method Susceptibility Staphylococcus hominis Clindamycin SHAWNA <=0.5 mcg/mL: Susceptible Staphylococcus hominis Erythromycin SHAWNA >4 mcg/mL: Resistant Staphylococcus hominis Linezolid SHAWNA 2 mcg/mL: Susceptible Staphylococcus hominis Minocycline SHAWNA <=1 mcg/mL: Susceptible Staphylococcus hominis Oxacillin SHAWNA <=0.25 mcg/mL: Susceptible Staphylococcus hominis Penicillin G SHAWNA <=0.125 mcg/mL: Susceptible Staphylococcus hominis Rifampin SHAWNA <=0.5 mcg/mL: Susceptible Staphylococcus hominis Tetracycline SHAWNA <=0.5 mcg/mL: Susceptible Staphylococcus hominis Vancomycin SHAWNA 1 mcg/mL: Susceptible Staphylococcus hominis Trimethoprim/Sulfamethoxazo SHAWNA <=0.5/9.5 mcg/mL: le Susceptible CSF cell count with differential (03/28/2018 9:57 AM) Component Value Ref Range Color, CSF Colorless Appearance, CSF Clear RBC, CSF 122 (H) 0 - 1 /CMM WBC, CSF 3 0 - 5 /CMM CSF mononuclear cell 3/CMM Specimen Performing Laboratory Cerebrospinal fluid [facility] DEPARTMENT OF PATHOLOGY AND GENOMIC MEDICINE [address] [place] [address] VDRL, CSF screen (03/28/2018 9:57 AM) Component Value Ref Range VDRL, CSF screen Non-reactive Non-reactive Specimen Performing Laboratory Cerebrospinal fluid [facility] DEPARTMENT OF PATHOLOGY AND GENOMIC MEDICINE [address] [place] [address] Glucose level, CSF (03/28/2018 9:57 AM) Component Value Ref Range Glucose, CSF 62 40 - 70 mg/dL Specimen Performing Laboratory Cerebrospinal fluid [facility] DEPARTMENT OF PATHOLOGY AND [address] [address] Syphilis treponemal IgG (03/26/2018 9:20 PM) Component Value Ref Range Syphilis treponemal IgG Non-reactiveComment: Non-reactive: No Non-reactive serological evidence of Syphilis infection Specimen Performing Laboratory Serum [facility] [address] [address] SUMMER titer (03/26/2018 9:20 PM) Component Value Ref Range SUMMER titer >1:320 (A) Not-Detected SUMMER titer 1 1:640 (A) Not-Detected SUMMER pattern Centromere (A) Not-Detected Specimen Performing Laboratory Blood [facility] [address] [address] Sedimentation rate (03/26/2018 9:20 PM) Component Value Ref Range Sedimentation rate 11 0 - 20 mm/hr Specimen Performing Laboratory Blood [facility] [address] [address] SUMMER (03/26/2018 9:20 PM) Component Value Ref Range SUMMER screen Positive (A) Negative Specimen Performing Laboratory Blood [facility] [address] [address] Thyroid stimulating hormone (03/26/2018 9:20 PM) Component Value Ref Range TSH 3.79 0.27 - 4.20 uIU/mL Specimen Performing Laboratory Plasma specimen [address] [address] T4, free (03/26/2018 9:20 PM) Component Value Ref Range T4, free 1.4 0.9 - 1.7 ng/dL Specimen Performing Laboratory Plasma specimen [facility] [address] [address] Folate level (03/26/2018 9:20 PM) Component Value Ref Range Folate 7.8 4.8 - 24.2 ng/mL Specimen Performing Laboratory Serum [address] [address] Vitamin B12 level (03/26/2018 9:20 PM) Component Value Ref Range Vitamin B12 >1600 (H) 211 - 946 pg/mL Comment: Significant overlap exists between normal and deficiency states. However, most patients with deficiencies will have Serum B12 <200 pg/mL. Specimen Performing Laboratory Serum [facility] [address] [address] Ammonia level (03/26/2018 9:20 PM) Component Value Ref Range Ammonia 41 11 - 51 umol/L Specimen Performing Laboratory Blood [facility] DEPARTMENT OF PATHOLOGY AND GENOMIC MEDICINE [address] [place] [address] Comprehensive metabolic panel (03/26/2018 9:20 PM) Component [...] Protein 7.1 6.3 - 8.3 g/dL Comment: [place] 4.6-7.0 g/dL 1 week 4.4-7.6 g/dL 7 months-1year5.1-7.3 g/dL 1-2 years5.6-7.5 g/dL >3 years6.0-8.0 g/dL 18-150 6.3-8.3 g/dL Albumin 3.1 (L) 3.5 - 5.0 g/dL A/G ratio 0.8 0.7 - 3.8 Alkaline phosphatase 40 35 - 104 U/L AST 24 10 - 35 U/L ALT 15 5 - 50 U/L Total bilirubin 0.3 0.0 - 1.2 mg/dL Specimen Performing Laboratory Plasma specimen [facility] DEPARTMENT OF PATHOLOGY AND GENOMIC MEDICINE [address] [place] [address] Outpatient EEG (03/26/2018 2:32 PM) Narrative EEG [...] Contrast (03/26/2018 12:45 PM) Specimen Performing Laboratory [facility] [address] [place] [address] Narrative EXAMINATION: CT MAXILLOFACIAL WO CONTRAST CLINICAL [...] Adams at 1305 hours. He verbalized understanding. [id number] Procedure Note Interface, Radiology Results Incoming - 03/26/2018 1:10 [...] Adams at 1305 hours. He verbalized understanding. [id number] after 04/10/2017 Insurance Payer Benefit Plan / Group Subscriber ID Type Phone Address MEDICARE MEDICARE PART A AND B xxxxxxxxxx Medicare [place], [place] AETNA [facility]NA [facility] xxxxxxxxx Indemnity [phone] [place] [phone]
[2018-04-11 09:13] LABS: Potassium 3.7 mEq/L (3.6-5.0)
[2018-04-11 09:23] LABS: Absolute Lymphocytes (CBC) 0.8 K/uL (0.7-4.9); Absolute Monocytes 0.4 K/uL (0.1-1.3); Absolute Neutrophil 9.3 K/uL (1.8-8.0); Basophils % 0.2 % (0-1.3); Eosinophils % 0.1 % (0-4.4); Hematocrit 43.4 % (36.0-45.0); Lymphocytes % 7.3 % (15.3-44.8); MCH 31.5 pg (27.0-35.0); MCV 92.4 fL (80-100); MPV 7.8 fL (7.6-11.3); Monocytes % 3.6 % (3.3-12.3)
[2018-04-11 09:50] LABS: Blood Morphology Comment NOT SEEN (NOT SEEN); Platelet Estimate ADEQ; Urine White Blood Cell Casts OK
--- NOTE | 2018-04-11 10:18 | RAD REPORT ---
EXAM DESCRIPTION: CT - Head C Spine Cap W Miguel - 04/11/2018 9:52 am CLINICAL HISTORY: Found on ground, unknown injury, history of seizures, head, neck, chest and abdome n pain COMPARISON: CT imaging March 21 maxillary sinus fracture noted on this imaging TECHNIQUE: Axial [address] head images were obtained. Axial [address] cervical spine images were obtaine d with sagittal and coronal reconstruction images reviewed. During dynamic enhancement of 100mL non-i onic contrast, axial 5 mm images of the chest, abdomen and pelvis were obtained. All CT scans are performed using dose optimization technique as appropriate and may include automated exposure control or mA/KV adjustment according to patient size. FINDINGS: No intracranial hemorrhage, mass or edema. No midline shift or abnormal fluid collection. Patient has very significant atrophy and chronic ischemic change. Ventriculomegaly is present questio nably out of proportion to the amount of volume loss. Finding is stable over the short interval. Norm al pressure hydrocephalus would be a possibility. Physiologic basal ganglia calcifications are presen t. No globe or orbital content abnormality. Mastoid air cells are clear. Right maxillary sinus fractu re was detailed on the prior study. This sinus is only partially imaged on this study. There is no ai r-fluid level or other finding that would indicate new or worsening sinus fracture. Right deviation o f the nasal septum is similar to the comparison. No skull fracture. Cervical bodies are normal in height. No change in alignment. Significant C5-6 disc and endplate dege nerative change remains. No fracture or new finding since the March 21 imaging. No paraspinal mass or h ematoma seen. Central canal detail remains inherently limited. Concerns for traumatic disc herniation or traumatic cord injury can be further addressed with MR imaging. CT chest shows no pneumothorax, pulmonary contusion or pleural fluid collection. No mediastinal hemat tonya and the aorta and pulmonary arteries are unremarkable. No chest will mass or abnormal axillary fi nding. No displaced rib fracture or other significant bony finding. CT abdomen and pelvis show no injury to solid abdominal viscera. Gallbladder and biliary tree are unr emarkable. No bowel injury or significant finding. No free air, free fluid or abnormal stranding. No urinary bladder abnormality. Patient has prominent degenerative change with lumbar left convex scoliotic curvature. No acute or pa thologic bone process identifiable. IMPRESSION: Advanced atrophy and chronic ischemic change. Ventricular size is questionably out of pr oportion and correlation is needed with normal pressure hydrocephalus exam findings. On current imaging there is no new finding from the March 21 study. Cervical spine degenerative change without acute finding. No new or significant CT chest finding. No new or significant CT abdomen and pelvis finding.
--- NOTE | 2018-04-11 10:35 | EKG ---
Test Date: 2018-04-11 Test Time: 08:54:26 Fishing Gear Mechanic: LEYDA MEASUREMENT RESULTS: Intervals: Rate: 74 HI: 160 QRSD: 72 QT: 414 QTc: 459 [place]: P: 63 HI: 160 QRS: 34 T: 54 INTERPRETIVE STATEMENTS: Normal sinus rhythm Normal ECG No previous ECG available for comparison Electronically Signed On 04-11-18 10:34:39 CDT by Ousmane Preston
[2018-04-11 11:54] LABS: Urine Blood 2+ (NEG); Urine Glucose NEGATIVE (NEG); Urine Protein NEGATIVE (NEG); Urine pH 5.5 (5.0-7.0)
--- NOTE | 2018-04-11 13:41 | EDPHYS ---
Physician Documentation [facility] Name: Domitila Corley Age: 72 yrs Sex: Female : 1945 Arrival Date: 04/11/2018 Time: 08:35 Bed 3 Private MD: ED Physician Cedrick Gonzales HPI: 04/11 11:41 This 72 yrs old Female presents to ER via EMS with complaints of Fall Injury. kdr 11:41 Details of fall: The patient fell from a height, off furniture, approximately 2 feet, kdr Out of bed. Onset: The symptoms/episode began/occurred this morning. Associated injuries: The patient sustained no obvious injury. Severity of symptoms: At their worst the symptoms were mild, in the emergency department the symptoms are unchanged. It is unknown whether or not the patient has had similar symptoms in the past. It is unknown whether or not the patient has recently seen a physician. Historical: - Allergies: 09:02 NKA; iw - Home Meds: 09:02 alendronate sodium-cholecalciferol(vitamin D3) oral oral once wkly [Active]; iw levothyroxine 150 mcg tab 1 tab once daily [Active]; raloxifene 60 mg oral tab 1 tab once daily [Active]; sertraline 50 mg oral tab 2 tabs once daily [Active]; donepezil 10 mg oral tab 1 tab once daily [Active]; Namenda XR 28 mg oral CSpX 1 cap once daily [Active]; levetiracetam 500 mg oral tab 1 tab daily [Active]; acetazolamide 250 mg Oral tab 1 tab once daily [Active]; CoQ-10 100 mg oral cap [Active]; Vitamin D3 2,000 unit oral cap [Active]; [place]-3 350 mg-235 mg- 90 mg-597 mg oral cpDR [Active]; Vitamin B-12 Oral [Active]; aspirin 81 mg Oral TbEC 1 tab once daily [Active]; - PMHx: 09:02 Alzheimers; Osteoporosis; Thyroid problem; iw - Immunization history:: Adult Immunizations up to date. - Social history:: Smoking status: Patient/guardian denies using tobacco. - Immunization history: Last tetanus immunization: unknown. - Ebola Screening: : Patient negative for fever greater than or equal to 101.5 degrees Fahrenheit, and additional compatible Ebola Virus Disease symptoms Patient denies exposure to infectious person Patient denies travel to an Ebola-affected area in the 21 days before illness onset No symptoms or risks identified at this time. ROS: 11:41 Constitutional: Unobtainable kdr 11:41 Unable to obtain ROS due to altered mental status, baseline dementia. Exam: 21:32 Constitutional: This is a well developed, well nourished patient who is awake, alert, kdr and in no acute distress. Eyes: Pupils equal round and reactive to light, extra-ocular motions intact. Lids and lashes normal. Conjunctiva and sclera are non-icteric and not injected. Cornea within normal limits. Periorbital areas with no swelling, redness, or edema. Neck: Trachea midline, no thyromegaly or masses palpated, and no cervical lymphadenopathy. Supple, full range of motion without nuchal rigidity, or vertebral point tenderness. No Meningismus. Chest/axilla: Normal chest wall appearance and motion. Nontender with no deformity. No lesions are appreciated. Cardiovascular: Regular rate and rhythm with a normal S1 and S2. No gallops, murmurs, or rubs. Normal PMI, no JVD. No pulse deficits. Respiratory: Lungs have equal breath sounds bilaterally, clear to auscultation and percussion. No rales, rhonchi or wheezes noted. No increased work of breathing, no retractions or nasal flaring. Abdomen/GI: Soft, non-tender, with normal bowel sounds. No distension or tympany. No guarding or rebound. No evidence of tenderness throughout. Back: No spinal tenderness. No costovertebral tenderness. Full range of motion. Skin: Warm, dry with normal turgor. Normal color with no rashes, no lesions, and no evidence of cellulitis. MS/ Extremity: Pulses equal, no cyanosis. Neurovascular intact. Full, normal range of motion. Neuro: Awake and alert, GCS 15, oriented to person, place, time, and situation. Cranial nerves II-XII grossly intact. Motor strength 5/5 in all extremities. Sensory grossly intact. Cerebellar exam normal. Normal gait. Psych: Awake, alert, with orientation to person, place and time. Behavior, mood, and affect are within normal limits. 21:32 Head/face: Noted is abrasion(s), contusion, of the right cheek. 21:32 Musculoskeletal/extremity: Extremities: grossly normal except: noted in the anterior aspect of right shoulder: contusion. Vital Signs: 08:44 BP 124 / 64; Pulse 81; Resp 18 S; Pulse Ox 98% on R/A; Weight 77.11 kg; Height 5 ft. 4 iw in. (162.56 cm); Pain 7/10; 09:03 Temp 97.9; sg 10:28 BP 118 / 68; Pulse 78; Resp 16 S; Pulse Ox 98% on R/A; iw 11:30 BP 111 / 69; Pulse 78; Resp 14; Pulse Ox 96% on R/A; ag 12:20 BP 117 / 70; Pulse 75; Resp 18; Pulse Ox 98% on R/A; ag 08:44 Body Mass Index 29.18 (77.11 kg, 162.56 cm) iw Jessica Coma Score: 08:45 Eye Response: to voice(3). Verbal Response: confused(4). Motor Response: localizes iw pain(5). Total: 12. Trauma Score (Adult): 08:45 Eye Response: to voice(0); Verbal Response: confused(1); Motor Response: localizes iw pain(1); Systolic BP: > 89 mm Hg(4); Respiratory Rate: 10 to 29 per min(4); [place] Score: 12; Trauma Score: 10 MDM: 11:39 Data reviewed: vital signs, nurses notes. ED course: Left a message for Dr. Adams at [facility] ([phone]). 13:06 ED course: Placed second call to Dr. Adams. [facility] 13:39 Patient medically screened. [facility] 04/11 08:43 Order name: Basic Metabolic Panel; Complete Time: 10:13 [facility] 04/11 08:43 Order name: CBC with Diff; Complete Time: 10:13 [facility] 04/11 08:43 Order name: Creatinine for Radiology; Complete Time: 10:13 [facility] 04/11 09:28 Order name: CBC Smear Scan; Complete Time: 10:13 [facility] 04/11 10:56 Order name: Urine Dipstick--Ancillary (enter results); Complete Time: 13:12 bd 04/11 08:43 Order name: CT Traumagram (Head C Spine CAP W Con); Complete Time: 10:51 [facility] 04/11 08:43 Order name: Labs collected and sent; Complete Time: 08:57 [facility] 04/11 08:43 Order name: Urine Dipstick-Ancillary (obtain specimen); Complete Time: 10:56 [facility] 04/11 10:34 Order name: EKG Electrocardiogram; Complete Time: 12:03 [facility] Administered Medications: No medications were administered Disposition: 04/11/18 13:39 Discharged to Home. Impression: Fall from bed, recurrent seizures. - Condition is Stable. - Discharge Instructions: Seizure, Adult, [id number], Fall Prevention and Home Safety, [id number]. - Medication Reconciliation Form, Thank You Letter form. - Follow up: Private Physician; When: 1 - 2 days; Reason: If symptoms return, Further diagnostic work-up, Recheck today's complaints, Continuance of care, Re-evaluation by your physician. - Problem is an acute exacerbation. - Symptoms are resolved. - Notes: As we discussed, give only 250 mg of Keppra once a day for now and call Dr. Adams's office at your earliest convenience. Signatures: Dispatcher [employer] [facility] Cedrick Gonzales MD MD kdr Corie Woodard RN RN iw Corrections: (The following items were deleted from the chart) 12:38 08:44 TYPE AND SCREEN+[id number].BRZ ordered. [facility] EDOH 14:05 13:39 04/11/2018 13:39 Discharged to Home. Impression: Fall from bed, recurrent iw seizures. Condition is Stable. Forms are Medication Reconciliation Form, Thank You Letter, Antibiotic Education, Prescription Opioid Use. Follow up: Private Physician; When: 1 - 2 days; Reason: If symptoms return, Further diagnostic work-up, Recheck today's complaints, Continuance of care, Re-evaluation by your physician. Problem is an acute exacerbation. Symptoms are resolved. kdr
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
[2018-04-11 14:09] VITALS: TEMP 97.9
[2018-04-11 14:13] VITALS: BP 117/70; O2SAT 98
== END 2018-04-11 14:05 | disposition home or self-care (01) ==
LOC: ER 08:35
DX: G40.909 Epilepsy, unspecified, not intractable, without status epilepticus (principal); F03.90 Unspecified dementia, unspecified severity, without behavioral disturbance, psychotic disturbance, mood disturbance, and anxiety; W06.XXXA Fall from bed, initial encounter; Y93.9 Activity, unspecified; Y92.9 Unspecified place or not applicable; Z79.82 Long term (current) use of aspirin
CPT/HCPCS: 36415; 70450; 71260; 72125; 74177; 80048; 81003; 85025; 93005; Q9967; 99284

== ENCOUNTER 2018-07-26 18:57 | Inpatient (IN) | payer OTHER ==
--- OUTSIDE RECORDS SUMMARY | 2018-07-26 18:59 | XMS REPORT | Clinical Summary ---
:1945 Author Organization [facility] Address [address] [place] [address] Care Team Providers Name Role Phone Darrell Nails MD Primary Care Provider Allergies Active Allergy Reactions Severity Noted Date Comments No Known Drug Allergies 08/17/2016 Current Medications Prescription Sig. Disp. Refills Start Date End Date Status alendronate 35 mg. Once a Active (FOSAMAX) 35 MG week tablet aspirin (ECOTRIN) Take 81 mg by Active 81 MG enteric mouth daily. coated tablet daily coenzyme Q10 200 mg Take 1 Active capsule capsule every day by oral route. 100 mg levothyroxine Take 150 mcg Active (SYNTHROID, by mouth LEVOXYL) 150 mcg daily. daily tablet OMEGA-3 FATTY 1000 mg 1 po Active ACIDS/FISH OIL qd (OMEGA 3 FISH OIL ORAL) raloxifene (EVISTA) daily Active 60 mg tablet cholecalciferol, Take 2,000 Active vitamin D3, Units by (VITAMIN D3) 2,000 mouth daily. unit capsule capsule CYANOCOBALAMIN, Take by Active VITAMIN B-12, mouth. 2500 (VITAMIN B-12 ORAL) mcg per day donepezil (ARICEPT) TAKE ONE 30 tablet 11 07/04/2017 Active 10 MG tablet TABLET BY MOUTH ONCE DAILY carBAMazepine Take 1 tablet 90 tablet 03/26/2018 03/26/2019 Active (TEGretol) 200 mg (200 mg tabletIndications: total) by Seizures mouth 3 (three) times a day. memantine 28 mg TAKE ONE 90 capsule 3 06/03/2018 Active capsule,sprinkle,ER CAPSULE BY 24hr MOUTH EVERY DAY sertraline (ZOLOFT) TAKE 2 60 tablet 5 06/18/2018 12/15/2018 Active 50 MG TABLETS (100 tabletIndications: MG TOTAL) BY Dementia without MOUTH DAILY behavioral FOR 180 DAYS. disturbance, unspecified dementia type levETIRAcetam Take 250 mg Active (KEPPRA) 500 MG by mouth tablet daily. docusate sodium Take 100 mg Active (COLACE) 100 MG by mouth capsule daily. polyethylene glycol Take 17 g by Active (MIRALAX) 17 gram mouth daily. packet sertraline (ZOLOFT) 1.5 tablets 08/05/2017 Discontinued 50 MG tablet bid donepezil (ARICEPT) TAKE ONE 30 tablet 5 06/07/2017 09/24/2017 Discontinued 10 MG tablet TABLET BY MOUTH ONCE DAILY NAMENDA XR 28 mg TAKE ONE 90 capsule 3 06/08/2017 06/02/2018 Discontinued capsule,sprinkle,ER CAPSULE BY 24hr MOUTH EVERY DAY sertraline (ZOLOFT) TAKE 1 AND 270 tablet 4 08/06/2017 09/24/2017 Discontinued 50 MG tablet 1/2 TABLET BY MOUTH TWICE A DAY sertraline (ZOLOFT) Take 2 60 tablet 5 09/24/2017 06/18/2018 Discontinued 50 MG tablets (100 tabletIndications: mg total) by Dementia without mouth daily behavioral for 180 days. disturbance, unspecified dementia type amoxicillin-pot TAKE 1 TABLET 0 03/22/2018 06/18/2018 Discontinued clavulanate BY MOUTH (AUGMENTIN) 875-125 EVERY 12 mg per tablet HOURS FOR 10 DAYS traMADol (ULTRAM) Take 50 mg by 0 03/22/2018 06/18/2018 Discontinued 50 mg tablet mouth every 8 (eight) hours as needed. 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 08/17/2016 Progressive aphasia 08/17/2016 Encounters Date Type Specialty Care Team Description 07/10/2018 Hospital Encounter Radiology Kasey Robin NPH (normal MD Theodore pressure hydrocephalus) 07/10/2018 Pre-Admit Testing Pre-Admission Kasey Robin NPH (normal pressure hydrocephalus); Appointment Testing MD Theodore Acquired coagulation factor deficiency 07/10/2018 Office Visit Neurosurgery Kasey Robin NPH (normal pressure hydrocephalus) (Primary Dx); MD Theodore Aphasia 07/10/2018 Anesthesia Event Pre-Admission Rand SharpjaniceLUCIE moreno 07/10/2018 Orders Only Neurosurgery Kasey Robin NPH (normal pressure hydrocephalus) (Primary Dx); MD Theodore Acquired coagulation factor deficiency 06/19/2018 Telephone Neurology Saritha Rojas RN 06/18/2018 Office Visit Neurology Brant Adams Late onset Alzheimer's disease without behavioral disturbance (Primary Dx); MD Ailin NPH (normal pressure hydrocephalus) 06/18/2018 Refill Neurology Brant Adams without MD Ailin behavioral disturbance, unspecified dementia type 06/02/2018 Refill Neurology Brant Adams MD 04/17/2018 Telephone Neurology Clarisa Brady RN 04/11/2018 Documentation Neurology Brant Adams MD 04/11/2018 Telephone Neurology Saritha Rojas RN 04/10/2018 Refill Neurology Saritha Rojas RN 04/02/2018 Telephone Neurology Clarisa Brady RN 03/28/2018 Procedure Pass Neurology 03/27/2018 Ophth Exam Ophthalmology Sandra Santiago MD 03/27/2018 Procedure Pass Neurology 03/26/2018 - Hospital Encounter Neurology [facility], Multiple falls (Primary Dx); 03/29/2018 MD [place] Dementia of frontal lobe type 03/26/2018 Hospital Encounter Radiology Brant Adams Traumatic sukumar Parisi MD of head, sequela 03/26/2018 Hospital Encounter Neurology Brant Adams Seizures MD Ailin 03/26/2018 Hospital Encounter Radiology Brant Adams Traumatic injury MD Ailin of head, sequela 03/26/2018 Office Visit Neurology Brant Adams Traumatic injury of head, sequela (Primary Dx); MD Ailin Seizures; Aphasia; Alzheimer's disease of other onset without behavioral disturbance 03/26/2018 Orders Only General Internal [facility], Medicine MD Checo 09/24/2017 Office Visit Neurology Brant Adams Dementia without behavioral disturbance, unspecified dementia type (Primary Dx); MD Ailin 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 Orders Only Neurology Arbmallory, Hypothyroidism, unspecified type (Primary Dx); YAMILET Mckenna Memory impairment; Anemia due to vitamin B12 deficiency, unspecified B12 deficiency type 08/05/2017 Refill Neurology Brant Adams MD after 07/25/2017 Family History Medical History Relation Name Comments Mental illness Brother Lung cancer Father Relation Name Status Comments Brother Father Social History Tobacco Use Types Packs/Day Years Used Date Never Smoker Smokeless Tobacco: Never Used Alcohol Use Drinks/Week oz/Week Comments No Sex Assigned at Date Recorded Not on file Last Filed Vital Signs Vital Sign Reading Time Taken Blood Pressure 106/56 07/10/2018 1:27 PM CDT Pulse 86 07/10/2018 1:27 PM CDT Temperature 36.1 C (97 F) 03/29/2018 11:50 AM CDT Respiratory Rate 19 07/10/2018 1:27 PM CDT Oxygen Saturation 95% 07/10/2018 1:27 PM CDT Inhaled Oxygen Concentration - - Weight 72.6 kg (160 lb) 07/10/2018 10:56 AM CDT Height 177.8 cm (5' 10") 07/10/2018 10:56 AM CDT Body Mass Index 22.96 07/10/2018 10:56 AM CDT Plan of Treatment Date Type Specialty Care Team Description 07/29/2018 Surgery General Surgery Kasey Robin RIGHT [employer] W/ MD Theodore POSSBILE BRAIN BIOSPY [address] [facility] [address] [place], [place] [phone] 07/29/2018 Procedure Pass General Surgery 07/29/2018 Hospital Encounter General Surgery Kasey Robin MD [address] [facility] [facility] [address] [place], [place] [id number] 10/02/2018 Office Visit Neurology Brant Adams MD [address] [facility] [place], [place] [phone] Health Maintenance Due Date Last Done Comments BREAST CANCER SCREENING 1995 COLON CANCER SCREENING 1995 SHINGRIX VACCINE (#1) 1995 ZOSTER VACCINE 2005 PNEUMOCOCCAL POLYSACCHARIDE VACCINE AGE 65 AND OVER 2010 PNEUMOCOCCAL-13 2010 INFLUENZA VACCINE 06/12/2018 Procedures Procedure Name Priority Date/Time Associated Comments Diagnosis XR CHEST 2 VW Routine 07/10/2018 2:21 NPH (normal Results for this PM CDT pressure procedure are in hydrocephalus) the results section. ECG 12-LEAD Routine 07/10/2018 1:42 NPH (normal Results for this PM CDT pressure procedure are in hydrocephalus) the results section. TYPE AND SCREEN Routine 07/10/2018 1:40 NPH (normal Results for this PM CDT pressure procedure are in hydrocephalus) the results section. PROTHROMBIN TIME WITH STAT 07/10/2018 1:40 Acquired Results for this INR PM CDT coagulation factor procedure are in deficiency the results NPH (normal section. pressure hydrocephalus) PARTIAL THROMBOPLASTIN STAT 07/10/2018 1:40 Acquired Results for this TIME (PTT) PM CDT coagulation factor procedure are in deficiency the results NPH (normal section. pressure hydrocephalus) HC COMPLETE BLD COUNT STAT 07/10/2018 1:40 NPH (normal Results for this W/AUTO DIFF PM CDT pressure procedure are in hydrocephalus) the results section. ZZESTIMATED GFR STAT 07/10/2018 1:08 Results for this PM CDT procedure are in the results section. BASIC METABOLIC PANEL STAT 07/10/2018 1:08 NPH (normal Results for this PM CDT pressure procedure are in hydrocephalus) the results section. ZZESTIMATED GFR Routine 03/29/2018 5:10 Results for this AM CDT procedure are in the results section. MAGNESIUM LEVEL Routine 03/29/2018 5:10 Results for this AM CDT procedure are in the results section. BASIC METABOLIC PANEL Routine 03/29/2018 5:10 Results for this AM CDT procedure are in the results section. HC COMPLETE BLD COUNT Routine 03/29/2018 5:10 Results for this W/AUTO DIFF AM CDT procedure are in the results section. MRI BRAIN WO CONTRAST Routine 03/28/2018 4:41 Results for this PM CDT procedure are in the results section. IR LUMBAR PUNCTURE Routine 03/28/2018 10:03 Results for this AM CDT procedure are in the results section. PROTEIN 14.3.3 TAU Routine 03/28/2018 9:57 Results for this THETA, CSF AM CDT procedure are in the results section. AB42 TAU, CSF Routine 03/28/2018 9:57 Results for this AM CDT procedure are in the results section. OLIGOCLONAL BANDING, Routine 03/28/2018 9:57 Results for this CSF AM CDT procedure are in the results section. VDRL, CSF SCREEN Routine 03/28/2018 9:57 Results for this AM CDT procedure are in the results section. GLUCOSE LEVEL, CSF Routine 03/28/2018 9:57 Results for this AM CDT procedure are in the results section. CSF CELL COUNT WITH Routine 03/28/2018 9:57 Results for this DIFFERENTIAL AM CDT procedure are in the results section. GRAM STAIN Routine 03/28/2018 9:57 Results for this AM CDT procedure are in the results section. CRYPTOCOCCAL ANTIGEN Routine 03/28/2018 9:57 Results for this SCREEN AM CDT procedure are in the results section. AFB CULTURE Routine 03/28/2018 9:57 Results for this AM CDT procedure are in the results section. FUNGUS CULTURE Routine 03/28/2018 9:57 Results for this AM CDT procedure are in the results section. CSF CULTURE Routine 03/28/2018 9:57 Results for this AM CDT procedure are in the results section. MRI BRAIN WO CONTRAST Routine 03/27/2018 10:51 Results for this PM CDT procedure are in the results section. SUMMER TITER Routine 03/26/2018 9:20 Results for this PM CDT procedure are in the results section. ZZESTIMATED GFR Routine 03/26/2018 9:20 Results for this PM CDT procedure are in the results section. VITAMIN B12 LEVEL Routine 03/26/2018 9:20 Results for this PM CDT procedure are in the results section. THYROID STIMULATING Routine 03/26/2018 9:20 Results for this HORMONE PM CDT procedure are in the results section. T4, FREE Routine 03/26/2018 9:20 Results for this PM CDT procedure are in the results section. SYPHILIS TREPONEMAL IGG Routine 03/26/2018 9:20 Results for this PM CDT procedure are in the results section. SEDIMENTATION RATE Routine 03/26/2018 9:20 Results for this PM CDT procedure are in the results section. FOLATE LEVEL Routine 03/26/2018 9:20 Results for this PM CDT procedure are in the results section. COMPREHENSIVE METABOLIC Routine 03/26/2018 9:20 Results for this PANEL PM CDT procedure are in the results section. HC COMPLETE BLD COUNT Routine 03/26/2018 9:20 Results for this W/AUTO DIFF PM CDT procedure are in the results section. SUMMER Routine 03/26/2018 9:20 Results for this PM CDT procedure are in the results section. AMMONIA LEVEL Routine 03/26/2018 9:20 Results for this PM CDT procedure are in the results section. EEG AWAKE/DROWSY LESS Routine 03/26/2018 2:32 Seizures Results for this THAN 41 MIN PM CDT procedure are in the results section. CT MAXILLOFACIAL WO STAT 03/26/2018 12:45 Traumatic injury of Results for this CONTRAST PM CDT head, sequela procedure are in the results section. after 07/25/2017 Results XR Chest 2 Vw (07/10/2018 2:21 PM) Narrative Performed At TWO VIEW CHEST, 07/10/2018 [facility] Clinical history:Preoperative evaluation. Normal pressure hydrocephalus. Technique: PA and lateral views chest. Comparison: None DISCUSSION: Left lower lobe interstitial scar or platelike atelectasis. Lungs are otherwise clear. No pleural effusions. Normal heart size. Mildly tortuous thoracic aorta. Pulmonary vasculature is normal.The skeleton is grossly intact. IMPRESSION: No acute abnormality. Procedure Note Interface, Radiology Results Incoming - 07/10/2018 2:25 PM CDT TWO VIEW CHEST, 07/10/2018 Clinical history: Preoperative evaluation. Normal pressure hydrocephalus. Technique: PA and lateral views chest. Comparison: None DISCUSSION: Left lower lobe interstitial scar or platelike atelectasis. Lungs are otherwise clear. No pleural effusions. Normal heart size. Mildly tortuous thoracic aorta. Pulmonary vasculature is normal. The skeleton is grossly intact. IMPRESSION: No acute abnormality. Performing Organization Address [facility] Phone Number [facility] [address] [place] [address] ECG 12 lead (07/10/2018 1:42 PM) Ventricular rate 78 [facility] Atrial rate 78 [facility] GA interval 158 [facility] QRSD interval 64 [facility] QT interval 374 [facility] QTC interval 426 [facility] P axis 1 39 [facility] QRS axis 1 -11 [facility] T wave axis 10 [facility] EKG impression Normal sinus rhythm-Low voltage QRS-Inferior [facility] MUSE infarct , age undetermined-Cannot rule out Anterior infarct , age undetermined-Abnormal ECG-No previous ECGs available- Performing Organization Address [facility] Phone Number [facility] MUSE [address] [place] [address] Partial thromboplastin time, activated (07/10/2018 1:40 PM) PTT 26.8 23.0 - 36.0 sec [facility] DEPARTMENT OF PATHOLOGY Comment: AND GENOMIC MEDICINE PTT therapeutic range for unfractionated heparin is 61.0-112.0 seconds which corresponds to Anti-Xa 0.3-0.7 U/ml. Specimen Blood Performing Organization Address [facility] Phone Number [facility] PATHOLOGY AND [address] [place] [phone] [place] [address] Prothrombin time with INR (07/10/2018 1:40 PM) Prothrombin time 13.2 12.0 - 15.0 sec [facility] DEPARTMENT OF PATHOLOGY AND GENOMIC MEDICINE INR 1.0 [facility] DEPARTMENT OF Comment: PATHOLOGY AND GENOMIC The International Normalized Ratio (INR) is a therapeutic MEDICINE monitoring tool for patients who are stable on oral anticoagulant therapy. An INR of 2.0-3.0 is suggested for deep vein thrombosis/pulmonary embolism. Specimen Blood Performing Organization Address [facility] Phone Number [facility] PATHOLOGY AND [address] [place], [place] [phone] [facility] CBC with platelet and differential (07/10/2018 1:40 PM)Only the most recent of3 resultswithin the time period is included. WBC 9.62 4.50 - 11.00 k/uL [facility] DEPARTMENT OF PATHOLOGY AND GENOMIC MEDICINE RBC 4.78 4.20 - 5.50 m/uL [facility] DEPARTMENT OF PATHOLOGY AND GENOMIC MEDICINE HGB 14.6 12.0 - 16.0 g/dL [facility] DEPARTMENT OF PATHOLOGY AND GENOMIC MEDICINE HCT 47.0 37.0 - 47.0 % [facility] DEPARTMENT OF PATHOLOGY AND GENOMIC MEDICINE MCV 98.3 82.0 - 100.0 fL [facility] DEPARTMENT OF PATHOLOGY AND GENOMIC MEDICINE MCH 30.5 27.0 - 34.0 pg [facility] DEPARTMENT OF PATHOLOGY AND GENOMIC MEDICINE MCHC 31.1 31.0 - 37.0 g/dL [facility] DEPARTMENT OF PATHOLOGY AND GENOMIC MEDICINE RDW - SD 50.6 37.0 - 55.0 fL [facility] DEPARTMENT OF PATHOLOGY AND GENOMIC MEDICINE MPV 9.5 8.8 - 13.2 fL [facility] DEPARTMENT OF PATHOLOGY AND GENOMIC MEDICINE Platelet count 229 150 - 400 k/uL [facility] DEPARTMENT OF PATHOLOGY AND GENOMIC MEDICINE Nucleated RBC 0.00 /100 WBC [facility] DEPARTMENT OF PATHOLOGY AND GENOMIC MEDICINE Neutrophils 55.3 39.0 - 69.0 % [facility] DEPARTMENT OF PATHOLOGY AND GENOMIC MEDICINE Lymphocytes 35.2 25.0 - 45.0 % [facility] DEPARTMENT OF PATHOLOGY AND GENOMIC MEDICINE Monocytes 5.4 0.0 - 10.0 % [facility] DEPARTMENT OF PATHOLOGY AND GENOMIC MEDICINE Eosinophils 3.5 0.0 - 5.0 % [facility] DEPARTMENT OF PATHOLOGY AND GENOMIC MEDICINE Basophils 0.4 0.0 - 1.0 % [facility] DEPARTMENT OF PATHOLOGY AND GENOMIC MEDICINE Immature granulocytes 0.2Comment: 0.0 - 1.0 % [facility] DEPARTMENT OF "Immature PATHOLOGY AND GENOMIC granulocytes" MEDICINE (promyelocytes, myelocytes, metamyelocytes) Specimen Blood Performing Organization Address City/State/[facility] Phone Number [facility] DEPARTMENT OF PATHOLOGY AND [address] [place] [address] GENOMIC MEDICINE Type and screen (07/10/2018 1:40 PM) ABO grouping B [facility] DEPARTMENT OF PATHOLOGY AND GENOMIC MEDICINE Rh type POS [facility] DEPARTMENT OF PATHOLOGY AND GENOMIC MEDICINE Antibody screen (gel) NEG [facility] DEPARTMENT OF PATHOLOGY AND GENOMIC MEDICINE Specimen Blood Performing Organization Address City/[facility] Phone Number [facility] DEPARTMENT OF PATHOLOGY AND [address] [place] [address] Estimated GFR (07/10/2018 1:08 PM)Only the most recent of3 resultswithin the time period is included. GFR Non Af Amer 54 (A) mL/min/1.73 m2 [facility] DEPARTMENT OF PATHOLOGY AND GENOMIC MEDICINE GFR Af Amer 66 mL/min/1.73 m2 [facility] DEPARTMENT OF Comment: PATHOLOGY AND GENOMIC Chronic kidney disease: <60 mL/min/1.73m2 MEDICINE Kidney failure: <15 mL/min/1.73m2 The estimated GFR is calculated from the IDMS-traceable Modification of Diet in Renal Disease Equation. The accuracy of the calculation is poor when the creatinine is normal. Calculated values >90 mL/min/1.73m2 are not reported. This equation has not been validated in children (<18 years), women, the elderly (>70 years), or ethnic groups other than Caucasians and Americans. Specimen Plasma specimen Performing Organization Address City/State/[facility] Phone Number [facility] DEPARTMENT OF PATHOLOGY AND [address] [place] [phone] [place] [address] Basic metabolic panel (07/10/2018 1:08 PM)Only the most recent of2 resultswithin the time period is included. Sodium 142 135 - 148 mEq/L [facility] DEPARTMENT OF PATHOLOGY AND GENOMIC MEDICINE Potassium 4.3 3.5 - 5.0 mEq/L [facility] DEPARTMENT OF PATHOLOGY AND GENOMIC MEDICINE Chloride 101 98 - 112 mEq/L [facility] DEPARTMENT OF PATHOLOGY AND GENOMIC MEDICINE CO2 29 24 - 31 mEq/L [facility] DEPARTMENT OF PATHOLOGY AND GENOMIC MEDICINE Anion gap 12@ANIO 7 - 15 mEq/L [facility] DEPARTMENT OF PATHOLOGY AND GENOMIC MEDICINE BUN 18 8 - 23 mg/dL [facility] DEPARTMENT OF PATHOLOGY AND GENOMIC MEDICINE Creatinine 1.0 (H) 0.5 - 0.9 mg/dL [facility] DEPARTMENT OF PATHOLOGY AND GENOMIC MEDICINE Glucose 100 (H) 65 - 99 mg/dL [facility] DEPARTMENT OF PATHOLOGY AND GENOMIC MEDICINE Calcium 9.3 8.8 - 10.2 mg/dL [facility] DEPARTMENT OF PATHOLOGY AND GENOMIC MEDICINE Specimen Plasma specimen Performing Organization Address City/[facility] Phone Number [facility] DEPARTMENT OF PATHOLOGY AND [address] [place] [address] Magnesium level (03/29/2018 5:10 AM) Magnesium 2.2 1.6 - 2.4 mg/dL [facility] DEPARTMENT OF PATHOLOGY AND GENOMIC MEDICINE Specimen Plasma specimen Performing Organization Address City/[facility] Phone Number [facility] DEPARTMENT OF PATHOLOGY AND [address] [place] [address] MRI Brain Wo Contrast (03/28/2018 4:41 PM)Only the most recent of2 resultswithin the time period is included. Narrative Performed At EXAMINATION:MRI BRAIN WO CONTRAST RADIANT CLINICAL HISTORY:MARTÍNEZ PROTOCOL FOR NPH, status post [...] cerebral hemisphere, mostly along right perirolandic distribution. [facility]-[id number] Procedure Note [facility], Radiology Results Incoming - 03/28/2018 10:24 [...] cerebral hemisphere, mostly along right perirolandic distribution. [facility]-[id number] Performing Organization Address [facility] Phone Number [facility] [address] [place] [address] IR Lumbar Puncture by Radiology (03/28/2018 10:03 AM) Narrative Performed At EXAMINATION:IR LUMBAR PUNCTURE [facility] CLINICAL HISTORY:Normal pressure hydrocephalus COMPARISON:None. FINDINGS: Informed [...] lumbar puncture to evaluate normal pressure hydrocephalus. [facility]-[id number] Procedure Note Interface, Radiology Results Incoming - [...] lumbar puncture to evaluate normal pressure hydrocephalus. [facility]-[id number] Performing Organization Address [facility] Phone Number [facility] [address] [place] [address] Protein 14.3.3 Tau Theta, CSF (03/28/2018 9:57 AM) Protein 14.3.3 Tau, CSF see note [facility] Comment: 14-3-3 Protein Tau/Theta, CSF [facility] test code [id number] Source:CSF Specimen Condition: Clear Estimated probability of prion disease in this patient: <2% Reference Range for Test Name (specimen) ResultNon-Prion Disease RT-QuIC (CSF)* Test notnegative performed due to Tau value below 500 pg/ml *RT-QuIC identifies the disease-causing agent Reference Range for Test Name (specimen) ResultNon-Prion Disease T-tau protein (CSF)++388pg/ml0-1149 pg/ml 14-3-3 protein (CSF)++ Negativenegative ++indirect markers of neurodegenerative disease These tests, together or alone, must not be used to exclude prion disease. A definitive diagnosis of prion disease can only be given after thorough examination of autopsy brain tissue. Please note, RT-QuIC and 14-3-3 protein tests cannot be performed reliably when there is a significant presence of blood in the CSF specimen. These tests were developed and their performance characteristics determined by the [facility] and they have not been cleared or approved by the FDA. These assays should be used in conjunction with other clinical, pathological and laboratory findings. Joel Patel M.D. sent to [facility] Performed at: [facility], [address] [place] [address], [address], [place] [address] Specimen Serum Performing Organization Address City/State/Zipcode Phone Number [facility] [address] [place] [address] AB42 Tau, CSF (03/28/2018 9:57 AM) AB42 Tau, CSF SEE NOTE [facility] DEPARTMENT OF PATHOLOGY Comment: AND [employer] Phospho-Tau / Total-Tau / A Beta [...] Recommendations: Health care providers, please contact the [employer] Client Services Department at if you wish to speak with a clinical building consultant regarding this test result. sent to [facility] [employer] performing site ethology Diagnostics [address] [facility] [place] [address] Performing Organization Address City/State/Zipcode Phone Number [facility] DEPARTMENT OF PATHOLOGY AND [address] [place] [address] [employer]oked [employer] culture (03/28/2018 9:57 AM) AFB culture isolate No growth after 6 weeks of incubation. [facility] DEPARTMENT OF PATHOLOGY Comment: AND GENOMIC MEDICINE Specimen Information Specimen Source: CSF (Spinal Fluid) Specimen Site: CSF (spinal fluid) Specimen Cerebrospinal fluid - CSF (spinal fluid) Performing Organization Address City/State/[facility] Phone Number [facility] DEPARTMENT OF PATHOLOGY AND [address] [place] [phone] [employer] [facility] Cryptococcal antigen, screen (03/28/2018 9:57 AM) Cryptococcal Ag Negative - No Cryptococcus antigen detected. [facility] DEPARTMENT OF PATHOLOGY Comment: AND GENOMIC MEDICINE Specimen Information Specimen Source: CSF (Spinal Fluid) Specimen Site: CSF (spinal fluid) Specimen Cerebrospinal fluid - CSF (spinal fluid) Performing Organization Address City/[facility] Centercode Phone Number [facility] DEPARTMENT OF PATHOLOGY AND [address] [place], [place] [phone] [employer] [facility] Oligoclonal banding, CSF (03/28/2018 9:57 AM) Protein, CSF 29 15 - 45 mg/dL [facility] DEPARTMENT OF PATHOLOGY AND GENOMIC MEDICINE Prealbumin, CSF 4.7 3.5 - 11.1 % [facility] DEPARTMENT OF PATHOLOGY AND GENOMIC MEDICINE Albumin, CSF 61.3 40.8 - 66.2 % [facility] DEPARTMENT OF PATHOLOGY AND GENOMIC MEDICINE Alpha 1, CSF 3.8 2.3 - 6.4 % [facility] DEPARTMENT OF PATHOLOGY AND GENOMIC MEDICINE Alpha 2, CSF 8.7 6.1 - 12.6 % [facility] DEPARTMENT OF PATHOLOGY AND GENOMIC MEDICINE Beta, CSF 15.2 11.7 - 24.1 % [facility] DEPARTMENT OF PATHOLOGY AND GENOMIC MEDICINE Gamma, CSF 6.3 5.6 - 12.2 % [facility] DEPARTMENT OF PATHOLOGY AND GENOMIC MEDICINE CSF extended See CommentComment: No [facility] DEPARTMENT OF interpretation oligoclonal bands are PATHOLOGY AND GENOMIC seen. MEDICINE CSF interpretation See CommentComment: [facility] DEPARTMENT OF Arron Holliday MD; PATHOLOGY AND GENOMIC Tremaine Vicente PhD; MEDICINE González Gross MD PhD Specimen Cerebrospinal fluid Performing Organization Address City/[facility]/Zipcode Phone Number [facility] DEPARTMENT OF PATHOLOGY AND [address] [place] [phone] [employer] MEDICINE Gram stain (03/28/2018 9:57 AM) Gram stain isolate Rare WBC's [facility] DEPARTMENT OF PATHOLOGY No organisms seen AND GENOMIC MEDICINE Comment: Specimen Information Specimen Source: CSF (Spinal Fluid) Specimen Site: CSF (spinal fluid) Specimen Cerebrospinal fluid - CSF (spinal fluid) Performing Organization Address [facility] Phone Number [facility] DEPARTMENT OF PATHOLOGY AND [address] [place] [phone] [employer] MEDICINE CSF culture (03/28/2018 9:57 AM) CSF culture isolate Staphylococcus hominis [facility] DEPARTMENT OF Recovered in Broth only: PATHOLOGY AND GENOMIC susceptibility to follow MEDICINE (A) Comment: Specimen Information Specimen Source: CSF (Spinal Fluid) Specimen Site: CSF (spinal fluid) Specimen Cerebrospinal fluid - CSF (spinal fluid) Organism Antibiotic Method Susceptibility Staphylococcus hominis Clindamycin [...] hominis Trimethoprim/Sulfamethoxazo SHAWNA <=0.5/9.5 mcg/mL: le Susceptible Performing Organization Address [facility] Phone Number [facility] DEPARTMENT OF PATHOLOGY AND [address] [place] [phone] [employer] MEDICINE Fungus culture (03/28/2018 9:57 AM) Fungus culture isolate No growth after 4 weeks of incubation. [facility] DEPARTMENT OF Comment: PATHOLOGY AND GENOMIC Specimen Information MEDICINE Specimen Source: CSF (Spinal Fluid) Specimen Site: CSF (spinal fluid) Specimen Cerebrospinal fluid - CSF (spinal fluid) Performing Organization Address City/[facility] Phone Number [facility] DEPARTMENT OF PATHOLOGY AND [address] [place] [phone] [facility] CSF cell count with differential (03/28/2018 9:57 AM) Color, CSF Colorless [facility] DEPARTMENT OF PATHOLOGY AND GENOMIC MEDICINE Appearance, CSF Clear [facility] DEPARTMENT OF PATHOLOGY AND GENOMIC MEDICINE RBC, CSF 122 (H) 0 - 1 /CMM [facility] DEPARTMENT OF PATHOLOGY AND GENOMIC MEDICINE WBC, CSF 3 0 - 5 /CMM [facility] DEPARTMENT OF PATHOLOGY AND GENOMIC MEDICINE CSF mononuclear cell 3/CMM [facility] DEPARTMENT OF PATHOLOGY AND GENOMIC MEDICINE Specimen Cerebrospinal fluid Performing Organization Address City/[facility]ercode Phone Number [facility] DEPARTMENT OF PATHOLOGY AND [address] [place] [address] VDRL, CSF screen (03/28/2018 9:57 AM) VDRL, CSF screen Non-reactive Non-reactive [facility] DEPARTMENT OF PATHOLOGY AND GENOMIC MEDICINE Specimen Cerebrospinal fluid Performing Organization Address City/[facility] Phone Number [facility] DEPARTMENT OF PATHOLOGY AND [address] [place] [address] Glucose level, CSF (03/28/2018 9:57 AM) Glucose, CSF 62 40 - 70 mg/dL [facility] DEPARTMENT OF PATHOLOGY AND GENOMIC MEDICINE Specimen Cerebrospinal fluid Performing Organization Address [facility] Phone Number [facility] DEPARTMENT OF PATHOLOGY AND [address] [place] [address] Syphilis treponemal IgG (03/26/2018 9:20 PM) Syphilis treponemal IgG Non-reactiveComment: Non-reactive [facility] DEPARTMENT OF Non-reactive: No PATHOLOGY AND GENOMIC serological evidence of MEDICINE Syphilis infection Specimen Serum Performing Organization Address [facility] Phone Number [facility] DEPARTMENT OF PATHOLOGY AND [address] [place] [address] SUMMER titer (03/26/2018 9:20 PM) SUMMER titer >1:320 (A) Not-Detected [facility] DEPARTMENT OF PATHOLOGY AND GENOMIC MEDICINE SUMMER titer 1 1:640 (A) Not-Detected [facility] DEPARTMENT OF PATHOLOGY AND GENOMIC MEDICINE SUMMER pattern Centromere (A) Not-Detected [facility] DEPARTMENT OF PATHOLOGY AND GENOMIC MEDICINE Specimen Blood Performing Organization Address [facility] Centercode Phone Number [facility] DEPARTMENT OF PATHOLOGY AND [address] [place] [address] Sedimentation rate (03/26/2018 9:20 PM) Sedimentation rate 11 0 - 20 mm/hr [facility] DEPARTMENT OF PATHOLOGY AND GENOMIC MEDICINE Specimen Blood Performing Organization Address City/[facility]ercode Phone Number [facility] DEPARTMENT OF PATHOLOGY AND [address] [place] [address] SUMMER (03/26/2018 9:20 PM) SUMMER screen Positive (A) Negative [facility] DEPARTMENT OF PATHOLOGY AND GENOMIC MEDICINE Specimen Blood Performing Organization Address [facility] Phone Number [facility] DEPARTMENT OF PATHOLOGY AND [address] [place] [address] Thyroid stimulating hormone (03/26/2018 9:20 PM) TSH 3.79 0.27 - 4.20 uIU/mL [facility] DEPARTMENT OF PATHOLOGY AND GENOMIC MEDICINE Specimen Plasma specimen Performing Organization Address [facility]ercode Phone Number [facility] DEPARTMENT OF PATHOLOGY AND [address] [place] [address] T4, free (03/26/2018 9:20 PM) T4, free 1.4 0.9 - 1.7 ng/dL [facility] DEPARTMENT OF PATHOLOGY AND GENOMIC MEDICINE Specimen Plasma specimen Performing Organization Address [facility] Phone Number [facility] DEPARTMENT OF PATHOLOGY AND [address] [place] [address] Folate level (03/26/2018 9:20 PM) Folate 7.8 4.8 - 24.2 ng/mL [facility] DEPARTMENT OF PATHOLOGY AND GENOMIC MEDICINE Specimen Serum Performing Organization Address [facility] Phone Number [facility] DEPARTMENT OF PATHOLOGY AND [address] [place] [address] Vitamin B12 level (03/26/2018 9:20 PM) Vitamin B12 >1600 (H) 211 - 946 pg/mL [facility] DEPARTMENT OF PATHOLOGY Comment: AND [facility] MEDICINE Significant overlap exists between normal and deficiency states. However, most patients with deficiencies will have Serum B12 <200 pg/mL. Specimen Serum Performing Organization Address [facility]ode Phone Number [facility] DEPARTMENT OF PATHOLOGY AND [address] [place] [address] Ammonia level (03/26/2018 9:20 PM) Ammonia 41 11 - 51 umol/L [facility] DEPARTMENT OF PATHOLOGY AND GENOMIC MEDICINE Specimen Blood Performing Organization Address [facility]ode Phone Number [facility] DEPARTMENT OF PATHOLOGY AND [address] [place] [address] Comprehensive metabolic panel (03/26/2018 9:20 PM) Sodium 144 135 - 148 mEq/L [facility] DEPARTMENT OF PATHOLOGY AND GENOMIC MEDICINE Potassium 4.6 3.5 - 5.0 mEq/L [facility] DEPARTMENT OF PATHOLOGY AND GENOMIC MEDICINE Chloride 104 98 - 112 mEq/L [facility] DEPARTMENT OF PATHOLOGY AND GENOMIC MEDICINE CO2 28 24 - 31 mEq/L [facility] DEPARTMENT OF PATHOLOGY AND GENOMIC MEDICINE Anion gap 12@ANIO 7 - 15 mEq/L [facility] DEPARTMENT OF PATHOLOGY AND GENOMIC MEDICINE BUN 18 8 - 23 mg/dL [facility] DEPARTMENT OF PATHOLOGY AND GENOMIC MEDICINE Creatinine 1.1 (H) 0.5 - 0.9 mg/dL [facility] DEPARTMENT OF PATHOLOGY AND GENOMIC MEDICINE Glucose 100 (H) 65 - 99 mg/dL [facility] DEPARTMENT OF PATHOLOGY AND GENOMIC MEDICINE Calcium 9.3 8.8 - 10.2 mg/dL [facility] DEPARTMENT OF PATHOLOGY AND GENOMIC MEDICINE Protein 7.1 6.3 - 8.3 g/dL [facility] DEPARTMENT OF Comment: PATHOLOGY AND GENOMIC [place] 4.6-7.0 g/dL MEDICINE 1 week 4.4-7.6 g/dL 7 months-1year5.1-7.3 g/dL 1-2 years5.6-7.5 g/dL >3 years6.0-8.0 g/dL 18-150 6.3-8.3 g/dL Albumin 3.1 (L) 3.5 - 5.0 g/dL [facility] DEPARTMENT OF PATHOLOGY AND GENOMIC MEDICINE A/G ratio 0.8 0.7 - 3.8 [facility] DEPARTMENT OF PATHOLOGY AND GENOMIC MEDICINE Alkaline phosphatase 40 35 - 104 U/L [facility] DEPARTMENT OF PATHOLOGY AND GENOMIC MEDICINE AST 24 10 - 35 U/L [facility] DEPARTMENT OF PATHOLOGY AND GENOMIC MEDICINE ALT 15 5 - 50 U/L [facility] DEPARTMENT OF PATHOLOGY AND GENOMIC MEDICINE Total bilirubin 0.3 0.0 - 1.2 mg/dL [facility] DEPARTMENT OF PATHOLOGY AND GENOMIC MEDICINE Specimen Plasma specimen Performing Organization Address City/State/[facility] Phone Number [facility] DEPARTMENT OF PATHOLOGY AND [address] [place] [address] [facility] Outpatient EEG (03/26/2018 2:32 PM) Narrative Performed At EEG [facility] Date of Service: [...] CT Maxillofacial Wo Contrast (03/26/2018 12:45 PM) Narrative Performed At EXAMINATION: CT MAXILLOFACIAL WO CONTRAST [facility] CLINICAL HISTORY: S09.90XS Unspecified injury of headsequela, [...] Adams at 1305 hours. He verbalized understanding. [id number] Procedure Note Interface, Radiology Results Incoming - [...] Adams at 1305 hours. He verbalized understanding. [id number] Performing Organization Address City/State/Zipcode Phone Number [facility] [address] [place] [address] after 07/25/2017 Insurance Payer Benefit Plan / Group Subscriber ID Type Phone Address MEDICARE MEDICARE PART A AND B xxxxxxxxxx Medicare [place] AETNA A[employer] INDEMNITY xxxxxxxxx Indemnity Home: [address] [place], [place] [phone] [place] [phone]
[2018-07-26 20:09] LABS: Absolute Lymphocytes (CBC) 3.3 K/uL (0.7-4.9); Absolute Monocytes 0.6 K/uL (0.1-1.3); Absolute Neutrophil 5.1 K/uL (1.8-8.0); Basophils % 0.7 % (0-1.3); Eosinophils % 2.3 % (0-4.4); Hematocrit 42.8 % (36.0-45.0); Lymphocytes % 35.2 % (15.3-44.8); MCH 31.5 pg (27.0-35.0); MCV 93.9 fL (80-100); MPV 8.2 fL (7.6-11.3); Monocytes % 6.8 % (3.3-12.3); RBC Red Blood Cell Count 4.55 M/uL (3.86-4.86)
--- NOTE | 2018-07-26 20:29 | RAD REPORT ---
EXAM DESCRIPTION: Dania Single View07/26/2018 8:19 pm CLINICAL HISTORY: Chest pain COMPARISON: none FINDINGS: The lungs appear clear of acute infiltrate. The heart is normal size IMPRESSION: No acute abnormalities displayed
[2018-07-26 20:33] LABS: ALT/SGPT 19 U/L (12-78); AST/SGOT 19 U/L (15-37); Albumin 3.1 g/dL (3.4-5.0); Alkaline Phosphatase 58 U/L (45-117); BUN Blood Urea Nitrogen 14 mg/dL (7-18); Bicarbonate 29 mmol/L (21-32); Bilirubin Direct 0.1 mg/dL (0-0.2); Bilirubin Total 0.3 mg/dL (0.2-1.0); Glucose Level 106 mg/dL (74-106); Lipase 3094 U/L (73-393); Potassium 4.1 mmol/L (3.5-5.1); Protein, Total 7.3 g/dL (6.4-8.2); Sodium Level 142 mmol/L (136-145); Troponin (Emerg Dept Use Only) < 0.02 ng/mL (0.0-0.045)
[2018-07-26 20:37] LABS: Protime INR 0.98
--- NOTE | 2018-07-26 20:56 | RAD REPORT ---
EXAM DESCRIPTION: CT - Ankle Left Wo Con - 07/26/2018 8:41 pm CLINICAL HISTORY: Left ankle and foot swelling. Ulceration. COMPARISON: None. TECHNIQUE: Computed axial tomography of the left ankle and left foot was obtained. Coronal sagittal reconstructions performed All CT scans are performed using dose optimization technique as appropriate and may include automated exposure control or mA/KV adjustment according to patient size. FINDINGS: Soft tissue ulceration is seen adjacent to the lateral aspect of calcaneus. Diffuse edema is present within the subcutaneous tissues. An abscess is not visualized. A bony destructive lesion is not seen. No gross abnormality of the musculature is seen IMPRESSION: Diffuse edema within the subcutaneous tissues of the left ankle and foot consistent with a cellulitis No radiographic evidence of osteomyelitis
--- NOTE | 2018-07-26 20:58 | RAD REPORT ---
EXAM DESCRIPTION: CT - Foot Left Wo Con - 07/26/2018 8:41 pm CLINICAL HISTORY: Left foot swelling, pain and ulceration COMPARISON: None. TECHNIQUE: Computed axial tomography of the left foot was obtained with coronal and sagittal reconst ruction All CT scans are performed using dose optimization technique as appropriate and may include automated exposure control or mA/KV adjustment according to patient size. FINDINGS: Soft tissue ulceration is seen adjacent to the lateral aspect of calcaneus. Diffuse edema is present within the subcutaneous tissues. An abscess is not visualized. A bony destructive lesion is not seen. No gross abnormality of the musculature is seen IMPRESSION: Diffuse edema within the subcutaneous tissues of the left ankle and foot consistent with cellulitis No radiographic evidence of osteomyelitis
--- NOTE | 2018-07-26 21:31 | ER ---
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 Transition of care: patient was not received from another setting of care. Onset of symptoms was June 12, 2018. Risk Assessment: Do you want to hurt yourself or someone else? Patient reports no desire to harm self or others. Initial Sepsis Screen: Does the patient meet any 2 criteria? No. Patient's initial sepsis screen is negative. Does the patient have a suspected source of infection? No. Patient's initial sepsis screen is negative. Care prior to arrival: None. 19:01 Method Of Arrival: Wheelchair aj 19:01 Acuity: LYNNE 3 aj Triage Assessment: 19:03 General: Appears in no apparent distress. comfortable, Behavior is calm, cooperative, aj appropriate for age. Pain: Denies pain. Neuro: Level of Consciousness is unresponsive, Oriented to none WNL for patient. Respiratory: Airway is patent Respiratory effort is even, unlabored, Respiratory pattern is regular, symmetrical. Derm: Skin is intact, is healthy with good turgor, Skin is pink, warm \T\ dry. normal, Wound noted lateral aspect of left foot. Historical: - Allergies: 19:03 NKA; aj - Home Meds: 19:03 alendronate sodium-cholecalciferol(vitamin D3) Oral once wkly [Active]; levothyroxine aj 150 mcg tab 1 tab once daily [Active]; raloxifene 60 mg Oral tab 1 tab once daily [Active]; memontino ER [Active]; levetiracetam 500 mg Oral tab 1 tab daily [Active]; Miralax 17 gram Oral pwpk 1 packet once daily [Active]; - PMHx: 19:03 Alzheimers; Osteoporosis; Thyroid problem; aj - PSHx: 19:03 None; aj - Immunization history:: Adult Immunizations up to date. - Social history:: Smoking status: Patient/guardian denies using tobacco. - Ebola Screening: : Patient negative for fever greater than or equal to 101.5 degrees Fahrenheit, and additional compatible Ebola Virus Disease symptoms Patient denies exposure to infectious person Patient denies travel to an Ebola-affected area in the 21 days before illness onset No symptoms or risks identified at this time. Screenin:33 Abuse screen: Denies threats or abuse. Nutritional screening: No deficits noted. tl2 Tuberculosis screening: No symptoms or risk factors identified. Fall Risk Fall in past 12 months (25 points). IV access (20 points). Gait- Weak (10 pts.). Assessment: 19:33 General: Appears in no apparent distress. uncomfortable, Behavior is anxious. Pain: tl2 Complains of pain in lateral aspect of left foot. Neuro: Level of Consciousness is awake, alert, Oriented to pt is nonverbal. Cardiovascular: Capillary refill < 3 seconds Patient's skin is warm and dry. Respiratory: Airway is patent Respiratory effort is even, unlabored, Respiratory pattern is regular, symmetrical. GI: No signs and/or symptoms were reported involving the gastrointestinal system. : No signs and/or symptoms were reported regarding the genitourinary system. Derm: Skin is pink, warm \T\ dry. Wound noted lateral aspect of left foot Wound is quarter sized wound to left foot. granulation tissue present. Family states that wound has been there for about 6 weeks but appears to be getting bigger. Wound is dressed by home health nurses. Vital Signs: 19:03 BP 114 / 71; Pulse 84; Resp 16; Temp 98.0; Pulse Ox 98% on R/A; Weight 72.57 kg; Height aj 5 ft. 8 in. (172.72 cm); 21:06 BP 150 / 82; Pulse 94; Resp 20; Pulse Ox 95% on R/A; tl2 22:24 BP 139 / 77; Pulse 75; Resp 17; Temp 98.5(A); Pulse Ox 100% on R/A; tl2 19:03 Body Mass Index 24.33 (72.57 kg, 172.72 cm) ED Course: 18:57 Patient arrived in ED. mr 18:58 David Villalta MD is Private Physician. mr 19:02 Triage completed. aj 19:03 Arm band placed on left wrist. Patient placed in an exam room. aj 19:26 Saúl Ochoa MD is Attending Physician. gs 19:33 Idalia Ortiz, YAMILET is Primary Nurse. tl2 19:33 Patient has correct armband on for positive identification. Placed in gown. Bed in low tl2 position. Call light in reach. Side rails up X2. Adult w/ patient. 19:33 Inserted saline lock: 22 gauge in right antecubital area, using aseptic technique. tl2 Blood collected. 20:14 CT completed. Patient tolerated procedure well. Patient moved to CT. Patient moved back from CT. 20:17 X-ray completed. Patient tolerated procedure well. bb2 20:17 Chest Single View XRAY In Process Unspecified. EDMS 20:40 Straight cath inserted, using sterile technique, 16 Fr. Returned cloudy urine. Patient tl2 tolerated well. 20:41 Ankle Left Wo Con In Process Unspecified. EDMS 20:41 Foot Left Wo Con In Process Unspecified. EDMS 21:31 Viviane Goff MD is Hospitalizing Provider. gs 07/27 00:18 No provider procedures requiring assistance completed. Patient admitted, IV remains in tl2 place. Administered Medications: 07/26 21:49 Drug: NS 0.9% 1000 ml Route: IV; Rate: 1000 ml; Site: right antecubital; tl2 07/27 00:19 Follow up: IV Status: Completed infusion; IV Intake: 1000ml tl2 07/26 23:06 Drug: Rocephin - (cefTRIAXone) 1 grams Route: IVPB; Infused Over: 30 mins; Site: right tl2 antecubital; 07/27 00:18 Follow up: IV Status: Completed infusion tl2 Point of Care Testing: Blood Glucose: 07/26 19:57 Blood Glucose: 108 mg/dL; oe Ranges: Intake: 07/27 00:19 IV: 1000ml; Total: 1000ml. tl2 Outcome: 07/26 21:31 Decision to Hospitalize by Provider. gs 07/27 00:18 Admitted to Tele accompanied by tech, family with patient, via stretcher, room 421, tl2 with chart, Report called to YAMILET Ko Condition: stable Discharge instructions given to family, Instructed on the need for admit. 00:19 Patient left the ED. tl2 Signatures: Dispatcher [employer] EDKenya Nelson RN RN aj Rivera, Maria mr Hagler, Ervin Idalia Ortiz RN RN tl2 Javi Becerril Gregory, MD MD gs Nu Morse bb2
--- NOTE | 2018-07-26 21:32 | EDPHYS ---
Physician Documentation [facility] Name: Domitila Corley Age: 72 yrs Sex: Female : 1945 Arrival Date: 07/26/2018 Time: 18:57 Bed 2 Private MD: David Villalta E ED Physician Saúl Ochoa HPI: 07/26 21:23 This 72 yrs old Female presents to ER via Wheelchair with complaints of Wound gs Infection. 21:23 The patient presents with chronic wound. The complaints affect the left foot. Onset: gs The symptoms/episode began/occurred 6 week(s) ago. Modifying factors: The symptoms are alleviated by nothing, the symptoms are aggravated by nothing. Associated signs and symptoms: Pertinent negatives: fever. Severity of symptoms: At their worst the symptoms were moderate, in the emergency department the symptoms are unchanged. The patient has not experienced similar symptoms in the past. The patient has not recently seen a physician. pt on hospice scheduled to get svp operations shunt next week. Historical: - Allergies: 19:03 NKA; aj - Home Meds: 19:03 alendronate sodium-cholecalciferol(vitamin D3) Oral once wkly [Active]; levothyroxine aj 150 mcg tab 1 tab once daily [Active]; raloxifene 60 mg Oral tab 1 tab once daily [Active]; memontino ER [Active]; levetiracetam 500 mg Oral tab 1 tab daily [Active]; Miralax 17 gram Oral pwpk 1 packet once daily [Active]; - PMHx: 19:03 Alzheimers; Osteoporosis; Thyroid problem; aj - PSHx: 19:03 None; aj - Immunization history:: Adult Immunizations up to date. - Social history:: Smoking status: Patient/guardian denies using tobacco. - Ebola Screening: : Patient negative for fever greater than or equal to 101.5 degrees Fahrenheit, and additional compatible Ebola Virus Disease symptoms Patient denies exposure to infectious person Patient denies travel to an Ebola-affected area in the 21 days before illness onset No symptoms or risks identified at this time. ROS: 21:23 Unable to obtain ROS due to baseline dementia. gs Exam: 21:23 ENT: Nares patent. No nasal discharge, no septal abnormalities noted. Tympanic gs membranes are normal and external auditory canals are clear. Oropharynx with no redness, swelling, or masses, exudates, or evidence of obstruction, uvula midline. Mucous membranes moist. Neck: Trachea midline, no thyromegaly or masses palpated, and no cervical lymphadenopathy. Supple, full range of motion without nuchal rigidity, or vertebral point tenderness. No Meningismus. Chest/axilla: Normal chest wall appearance and motion. Nontender with no deformity. No lesions are appreciated. Cardiovascular: Regular rate and rhythm with a normal S1 and S2. No gallops, murmurs, or rubs. Normal PMI, no JVD. No pulse deficits. Respiratory: Lungs have equal breath sounds bilaterally, clear to auscultation and percussion. No rales, rhonchi or wheezes noted. No increased work of breathing, no retractions or nasal flaring. Abdomen/GI: Soft, non-tender, with normal bowel sounds. No distension or tympany. No guarding or rebound. No evidence of tenderness throughout. Back: No spinal tenderness. No costovertebral tenderness. Full range of motion. Neuro: Awake and alert, GCS 15, oriented to person, place, time, and situation. Cranial nerves II-XII grossly intact. Motor strength 5/5 in all extremities. Sensory grossly intact. Cerebellar exam normal. Normal gait. 21:23 Constitutional: The patient appears alert, awake. 21:23 Musculoskeletal/extremity: Perfusion: the patient is noted to have brisk capillary refill. 21:23 Skin: cellulitis, that is mild, on the left medial ankle and anterior aspect of left ankle, lesion(s), noted, and can be described as necrotic, ulcerated. Vital Signs: 19:03 BP 114 / 71; Pulse 84; Resp 16; Temp 98.0; Pulse Ox 98% on R/A; Weight 72.57 kg; Height aj 5 ft. 8 in. (172.72 cm); 21:06 BP 150 / 82; Pulse 94; Resp 20; Pulse Ox 95% on R/A; tl2 22:24 BP 139 / 77; Pulse 75; Resp 17; Temp 98.5(A); Pulse Ox 100% on R/A; tl2 19:03 Body Mass Index 24.33 (72.57 kg, 172.72 cm) MDM: 19:42 Patient medically screened. 21:23 Differential diagnosis: cellulitis, abscess, osteomyelitis, sepsis. Data reviewed: vital signs, nurses notes. Response to treatment: the patient's symptoms have mildly improved after treatment, and as a result, I will admit patient. 07/26 19:44 Order name: Basic Metabolic Panel; Complete Time: 21:02 07/26 19:44 Order name: Blood Culture Adult (2) 07/26 19:44 Order name: CBC with Diff; Complete Time: 21:02 07/26 19:44 Order name: Lactate; Complete Time: 21:02 07/26 19:44 Order name: LFT's; Complete Time: 21:02 07/26 19:44 Order name: Lipase; Complete Time: 21:02 07/26 21:02 Interpretation: Abnormal. 07/26 19:44 Order name: Procalcitonin; Complete Time: 21:02 07/26 19:44 Order name: Protime (+inr); Complete Time: 22:50 07/26 19:44 Order name: Troponin (emerg Dept Use Only); Complete Time: 21:02 07/26 21:09 Order name: Urine Culture tl2 07/26 21:49 Order name: Urinalysis W/Microscopic; Complete Time: 22:50 [facility] 07/26 22:50 Interpretation: UUROB 1.0. 07/26 22:40 Order name: Lactate Sepsis 2 HR Follow-up; Complete Time: 22:50 [facility] 07/26 19:44 Order name: Chest Single View XRAY; Complete Time: 21:02 07/26 19:44 Order name: Accucheck; Complete Time: 19:57 07/26 19:44 Order name: Cardiac monitoring; Complete Time: 19:46 07/26 19:46 Order name: Ankle Left Wo Con; Complete Time: 21:02 [facility] 07/26 19:46 Order name: Foot Left Wo Con; Complete Time: 21:02 [facility] 07/26 22:51 Order name: CONS Pharmacy Consult [facility] 07/26 22:51 Order name: Heart Healthy [facility] 07/26 22:51 Order name: CBC with Automated Diff [facility] 07/26 22:51 Order name: CBC with Automated Diff [facility] 07/26 22:51 Order name: Comprehensive Metabolic Panel [facility] 07/26 22:51 Order name: Comprehensive Metabolic Panel [facility] 07/26 22:51 Order name: Lipase [facility] 07/26 22:51 Order name: Lipase [facility] 07/26 23:18 Order name: Glucose, Ancillary Testing [facility] 07/26 19:44 Order name: EKG - Nurse/Tech; Complete Time: 19:46 07/26 19:44 Order name: IV Saline Lock - Large Bore; Complete Time: 19:46 07/26 19:44 Order name: Labs collected and sent; Complete Time: 19:46 07/26 19:44 Order name: O2 Per Protocol; Complete Time: 19:46 07/26 19:44 Order name: O2 Sat Monitoring; Complete Time: 19:46 07/26 19:44 Order name: Urine Dipstick-Ancillary (obtain specimen); Complete Time: 20:58 gs Administered Medications: 21:49 Drug: NS 0.9% 1000 ml Route: IV; Rate: 1000 ml; Site: right antecubital; 2 07/27 00:19 Follow up: IV Status: Completed infusion; IV Intake: 1000ml [facility] 07/26 23:06 Drug: Rocephin - (cefTRIAXone) 1 grams Route: IVPB; Infused Over: 30 mins; Site: right 2 antecubital; 07/27 00:18 Follow up: IV Status: Completed infusion tl2 Point of Care Testing: Blood Glucose: 07/26 19:57 Blood Glucose: 108 mg/dL; oe Ranges: Critical Glucose Levels:Adult <50 mg/dl or >400 mg/dl <40 mg/dl or >180 mg/dl Disposition: 07/26/18 21:31 Hospitalization ordered by Viviane Goff for Inpatient Admission. 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 - Bed requested for Telemetry/MedSurg (Inpatient). - Status is Inpatient Admission. tl2 - Condition is Stable. - Problem is new. - Symptoms have improved. UTI on Admission? No Signatures: Dis[facility] Caryn Ariza RN RN mw Myers, Amanda, RN RN aj Knox, Taylor, RN RN tl2 Saúl Ochoa MD MD Corrections: (The following items were deleted from the chart) 21:49 21:09 UA MICROSCOPIC+U.LAB.BRZ ordered. [facility] 22:16 21:31 Hospitalization Ordered by Viviane Goff MD for Inpatient Admission. 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 Bed requested for Telemetry/MedSurg (Inpatient). Status is Inpatient Admission. Condition is Stable. Problem is new. Symptoms have improved. UTI on Admission? No. gs 22:39 22:04 LACTATE+C.LAB.BRZ ordered. [facility] 07/27 00:19 07/26 22:16 07/26/2018 21:31 Hospitalization Ordered by Viviane Goff MD for Inpatient tl2 Admission. 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 Bed requested for Telemetry/MedSurg (Inpatient). Status is Inpatient Admission. Condition is Stable. Problem is new. Symptoms have improved. UTI on Admission? No. mw
[2018-07-26 21:51] LABS: Urine Appearance TURBID; Urine Bilirubin NEGATIVE (NEG); Urine Blood 2+ (NEG); Urine Color YELLOW; Urine Glucose NEGATIVE (NEG); Urine Protein 1+ (NEG); Urine Specific Gravity >=1.030 (1.005-1.030); Urine pH 5.5 (5.0-7.0)
[2018-07-26] MEDS ORDERED: NA CHLORIDE 0.9% 1,000 ML ONE (21:51)
[2018-07-26 21:58] LABS: Urine Bacteria 20-50 /HPF (<20); Urine Culture Reflex Order NOT NEEDED; Urine RBC <5 /HPF (NONE SEEN)
[2018-07-26] MEDS ORDERED: MORPHINE 4 MG/ML SYR IV PRN (22:48)
[2018-07-26] MEDS ORDERED: ONDANSETRON 4 MG/2 ML VIAL IV PRN (22:48)
[2018-07-26] MEDS ORDERED: ALBUTEROL 2.5 MG/3 ML NEB SOL NEB PRN (22:48)
[2018-07-26] MEDS ORDERED: ACETAMINOPHEN 500 MG TAB PO PRN (22:48)
[2018-07-26] MEDS ORDERED: CEFTRIAXONE/SWI 1gm 1 GM/10 ML SYR ONE (23:10)
[2018-07-27] MEDS: NA CHLORIDE 0.9% 1,000 ML IV SCH ×3 (00:30→20:44)
[2018-07-27] MEDS: IPRATROPIUM BROM 0.5MG/2.5ML NEB SCH ×4 (02:59→19:59)
[2018-07-27 06:52] LABS: Albumin 2.7 g/dL (3.4-5.0); Bilirubin Total 0.2 mg/dL (0.2-1.0); Protein, Total 5.9 g/dL (6.4-8.2)
[2018-07-27 07:30] LABS: Absolute Lymphocytes (CBC) 2.9 K/uL (0.7-4.9); Absolute Monocytes 0.5 K/uL (0.1-1.3); Absolute Neutrophil 4.6 K/uL (1.8-8.0); Basophils % 0.8 % (0-1.3); Eosinophils % 2.6 % (0-4.4); Hematocrit 39.2 % (36.0-45.0); Lymphocytes % 34.7 % (15.3-44.8); MCH 31.3 pg (27.0-35.0); MCV 92.9 fL (80-100); MPV 8.1 fL (7.6-11.3); Monocytes % 6.2 % (3.3-12.3); RBC Red Blood Cell Count 4.22 M/uL (3.86-4.86)
[2018-07-27] MEDS ORDERED: PNEUMOCOCCAL VACCINE 0.5 ML IMVAC ONE (08:00)
[2018-07-27] MEDS ORDERED: VANCOMYCIN/NS 1 gm 1 GM/250 ML BAG IVPB SCH (09:30)
--- NOTE | 2018-07-27 09:47 | P.HP ---
Certification for Inpatient Patient admitted to: Inpatient With expected LOS: >2 Midnights Patient will require the following post-hospital care: None Practitioner: I am a practitioner with admitting privileges, knowledge of patient current condition, hospital course, and medical plan of care. Services: Services provided to patient in accordance with Admission requirements found in Title 42 Section 412.3 of the Code of Federal Regulations Patient History Date of Service: 07/27/18 Reason for admission: Acute pancreatitis /wounds to the ankle History of Present Illness: Patient is a 72-year-old female who came into the hospital with worsening wounds to bilateral ankles. Patient has been having these monitored by a her hospice agency according to the . However, the wounds have been getting worse. He brought her in to get these looked at but incidental finding of acute pancreatitis. Patient was admitted to the hospital for further workup. Patient has a history of frontal lobe dementia which is the reason for her hospice diagnosis. Patient is no longer able to interact and does not care for herself or do any of her activities of daily living. She also has normal pressure hydrocephalus and will get a MULTIGRAPHER shunt on Sunday. She is supposed to get this done at [facility]. She had her diagnosis of her frontal lobe dementia at [facility] as well. At this time patient will be admitted to the hospital with IV fluids and will recheck her lipase level. She will also get wound care for bilateral ankles. Will discuss with family and see if they want to revoke hospice for the time being. Allergies No Known Allergies Allergy (Verified 07/27/18 00:32) Home Medications: Alendronate Sodium 35 mg PO EVERY 7TH DAY 07/27/18 Aspirin 1 tab PO DAILY 07/27/18 Cholecalciferol (Vitamin D3) [Vitamin D3] 1 cap PO DAILY 07/27/18 Cyanocobalamin (Vitamin B-12) [Vitamin B12] 1 tab PO DAILY 07/27/18 Docosahexanoic AC/Epa [Fish Oil 1,000 MG*] 1 cap PO DAILY 07/27/18 Donepezil HCl 10 mg PO DAILY 07/27/18 Levothyroxine Sodium 150 mcg PO DAILY 07/27/18 Memantine HCl [Memantine HCl ER] 1 cap PO DAILY 07/27/18 Polyethylene Glycol 3350 [Miralax] 30 ml PO DAILY 07/27/18 Raloxifene HCl 60 mg PO DAILY 07/27/18 Sertraline HCl 2 tab PO DAILY 07/27/18 Ubidecarenone/Vit E Acetate [Co Q-10 100 mg Softgel] 1 cap PO DAILY 07/27/18 levETIRAcetam [Levetiracetam] 1 tab PO DAILY 07/27/18 - Past Medical/Surgical History Has patient received pneumonia vaccine in the past: No Diabetic: No -: Frontal lobe dementia -: Bladder Suspension Surgery -: Hysterectomy - Family History Father Medical History: Cancer Notes: Lung Cancer Mother Medical History: Heart disease - Social History Smoking Status: Never smoker Alcohol use: No CD- Drugs: No Caffeine use: No Place of Residence: Home Review of Systems 10-point ROS is otherwise unremarkable Physical Examination - Vital Signs Temperature: 98.5 F Blood Pressure: 116/63 Pulse: 83 Respirations: 18 Pulse Ox (%): 96 - Physical Exam General: Alert, In no apparent distress, Unresponsive HEENT: Atraumatic, PERRLA, Mucous membr. moist/pink, EOMI, Sclerae nonicteric Neck: Supple, 2+ carotid pulse no bruit, No LAD, Without JVD or thyroid abnormality Respiratory: Clear to auscultation bilaterally, Normal air movement Cardiovascular: Regular rate/rhythm, Normal S1 S2, No murmurs Gastrointestinal: Normal bowel sounds, Soft and benign, Non-distended, No tenderness Musculoskeletal: No clubbing, No swelling, No contractures, No tenderness Integumentary: No rashes Neurological: Normal gait, Normal speech, Normal strength at 5/5 x4 extr, Normal tone, Sensation intact, Cranial nerves 3-12 intact, Normal affect Lymphatics: No axilla or inguinal lymphadenopathy - Studies Laboratory Data (last 24 hrs) 07/26/18 19:35: PT 11.6, INR 0.98 07/26/18 19:35: WBC 9.3, Hgb 14.4, Hct 42.8, Plt Count 201 07/26/18 19:35: Sodium 142, Potassium 4.1, BUN 14, Creatinine 0.90, Glucose 106 , Total Bilirubin 0.3, AST 19, ALT 19, Alkaline Phosphatase 58, Lipase 3094 H Assessment & Plan - Plan Assessment: 1. Frontal lobe dementia 2. pressure ulcers to bilateral ankle 3. Acute pancreatitis 4. normal pressure hydrocephalus 5. dysphagia Plan: 1. continue with supportive care is: IV hydration / fluids as needed 2. Wound care to bilateral ankles 3. IV hydration and NPO for now. Pleasure foods as tolerated 4. Patient scheduled for MULTIGRAPHER shunt on Sunday a.m. at this 5. Speech therapy consultation 6. Wound healing consultation as well 7. Discussed with family if they want to revoke hospice at this time as her getting quite a bit of treatment and they seemed to be trying to get her better in certain aspects. Will discuss with them regarding further plan of care. - Advance Directives Does patient have a Living Will: Yes Does patient have a Durable POA for Healthcare: Yes - Code Status/Comfort Care Code Status Assessed: Yes Code Status: Full Code Critical Care: No Time Spent Managing PTS Care (In Minutes): 60
[2018-07-27] MEDS: ENOXAPARIN 40 MG/0.4 ML SQ SCH (10:30)
[2018-07-27] MEDS: SERTRALINE HCL 50 MG TAB PO SCH (10:31)
[2018-07-27] MEDS: ASPIRIN 81 MG CHEWABLE TABLET PO SCH (10:31)
[2018-07-27] MEDS: RALOXIFENE HCL 60 MG TAB PO SCH (10:31)
[2018-07-27] MEDS: PIPER/TAZO/NS 3.375gm 3.375 GM/100 ML BAG IVPB SCH ×2 (11:16→17:36)
--- NOTE | 2018-07-27 11:59 | PN ---
Date of Progress Note: 07/27/2018 Subjective: The patient seen and examined, chart reviewed, and case discussed with RN. at t he bedside. Treatment plan explained. All questions answered. The patient primary doctor is Dr. Lucretia farah. Hospitalist covering over the weekends. The patient asleep and arousable, however, does not wish to participate in history taking. Review of Systems: Negative except as above. Medications: List reviewed. Objective: Vital Signs: Temperature 98.4, heart rate 87, blood pressure 123/86, respirations 18, O2 97% on 2 L. General: Asleep, arousable, not cooperative with exam. Does not appear to be in any a cute distress. Elderly female, ill-appearing. CV: S1, S2. No murmurs. Peripheral pulses present. Respiratory: Moving air well bilaterally. Abdomen: Soft, nontender, nondistended. Positive bowel sounds. Extremities: No clubbing, cyanosis, edema. Neuro: Moves all 4 extremities. Skin: The patient has erythema and warmth. Mild tenderness to touch on the left ankle with multiple ulcers. Code Status: Do not resuscitate. Laboratory Data: Sodium 142, potassium 4, chloride 110, CO2 29, BUN 10, creatinine 0.7, glucose 100, calcium 7.9, albumin 2.7. WBC 8.3, H and H 13.2, 39.2, platelets 151. Blood cultures pending. Ank le CT shows diffuse edema with subcutaneous tissues of the left ankle and foot consistent with cellul itis. No evidence of osteomyelitis. Assessment And Plan: A 72-year-old female with: 1.Left ankle cellulitis. Continue with IV antibiotics. We will obtain wound cultures from the ankl e. The patient has multiple wounds. Will need wound care as well. Consult Infectious Disease. We will start on IV antibiotics, vancomycin, and Zosyn to cover methicillin-resistant staphylococcus aur eus, possible Pseudomonas, and gram-negative coverage. 2.Frontal lobe dementia. The patient is scheduled for shunt procedure on Sunday at [facility] er, given her recent infection, would recommend against any sort of invasive surgery. 3.Osteoporosis. 4.Hypothyroidism. 5.Urinary tract infection. The patient has 3+ leukocyte esterase, negative nitrite, too numerous to count wbc's, 20-50 bacteria in the urine. We will obtain urine culture. Plan: Continue IV antibiotics. SA/MODL Voice ID: [id number] Report ID: [id number]
--- NOTE | 2018-07-27 12:05 | CON ---
History Of Present Illness: This is a 72-year-old female I was consulted for cellulitis of left foot and pressure ulcers. The patient is being monitored by hospice agency for reason does not k now at this time. noticed that the patient was starting to develop redness and increased tem perature to the left foot and ankle site. Past Medical History: Frontal lobe dementia, bladder suspension surgery, hysterectomy. Surgical History: Nonsmoker, nondrinker. Family History: Noncontributory. Medications: Zosyn and vancomycin. Allergies: NO KNOWN DRUG ALLERGIES. Review of Systems: Unable to obtain. Physical Examination: General: This is a 72-year-old female, lying in bed, not in any acute cardiopulmonary distress. Vital Signs: Temperature 98, pulse 83, respiration 18, blood pressure 116/63. HEENT: Unremarkable. Neck: Supple. Lungs: Basal crackles. Heart: S1, S2. Regular. Abdomen: Soft, nontender. Bowel sounds positive. Extremities: No edema. Laboratory Data: Shows WBC 8.3, hemoglobin 13.2, platelets 154. Chemistry shows sodium 143, potassi um 4, chloride 110, bicarb 29, BUN 10, creatinine 0.7, glucose 100. Micro data, blood cultures and w ound cultures are pending. Assessment And Plan: Wounds noted at the left ankle area, deep tissue injury on the lateral aspect o f the left ankle. Heel wounds also noted. The patient can be switched to oral Levaquin and doxycycl ine at time of discharge. The family was instructed to keep the pressure site offloaded. Continue s upportive care. We will follow the patient closely. Apply foam dressing to the wound site and offlo ading by use of pillows. Follow up at the [facility] as needed. NF/MODL Voice ID: [id number] Report ID: [id number]
[2018-07-27] MEDS: VANCOMYCIN 1.25 GM in NA CHLORIDE 0.9% 250 ML IVPB SCH (12:07)
--- NOTE | 2018-07-27 12:10 | EKG ---
Test Date: 2018-07-26 Test Time: 19:32:56 [employer] Technician: GRAEME MEASUREMENT RESULTS: Intervals: Rate: 85 MD: 158 QRSD: 70 QT: 370 QTc: 440 Mozier: P: 58 MD: 158 QRS: -4 T: 19 INTERPRETIVE STATEMENTS: Normal sinus rhythm Low voltage QRS Borderline ECG Compared to ECG 04/11/2018 08:54:26 Low QRS voltage now present Electronically Signed On 07-27-18 12:07:30 CDT by Ousmane Preston
[2018-07-27] MEDS: levETIRAcetam 500 MG TAB PO SCH (17:35)
[2018-07-27] MEDS ORDERED: DONEPEZIL HCL 5 MG TAB PO SCH (21:00)
[2018-07-28] MEDS: PIPER/TAZO/NS 3.375gm 3.375 GM/100 ML BAG IVPB SCH ×2 (00:50→09:05)
[2018-07-28] MEDS ORDERED: PIPER/TAZO/NS 3.375gm 3.375 GM/100 ML BAG ONE (00:50)
[2018-07-28] MEDS: IPRATROPIUM BROM 0.5MG/2.5ML NEB SCH ×2 (01:58→08:19)
[2018-07-28 04:16] VITALS: BMI 25.1
[2018-07-28 05:39] LABS: Absolute Lymphocytes (CBC) 2.1 K/uL (0.7-4.9); Absolute Monocytes 0.5 K/uL (0.1-1.3); Absolute Neutrophil 4.6 K/uL (1.8-8.0); Basophils % 0.5 % (0-1.3); Eosinophils % 3.4 % (0-4.4); Hematocrit 36.1 % (36.0-45.0); Lymphocytes % 28.1 % (15.3-44.8); MCH 31.4 pg (27.0-35.0); MPV 8.4 fL (7.6-11.3); Monocytes % 6.8 % (3.3-12.3); RBC Red Blood Cell Count 3.92 M/uL (3.86-4.86)
[2018-07-28] MEDS: VANCOMYCIN 1.25 GM in NA CHLORIDE 0.9% 250 ML IVPB SCH (05:56)
[2018-07-28] MEDS: NA CHLORIDE 0.9% 1,000 ML IV SCH (05:56)
[2018-07-28 06:00] LABS: Albumin 2.4 g/dL (3.4-5.0); Bilirubin Total 0.3 mg/dL (0.2-1.0); Potassium 3.9 mmol/L (3.5-5.1); Protein, Total 5.6 g/dL (6.4-8.2)
[2018-07-28] MEDS ORDERED: LEVOTHYROXINE SOD 0.075 MG TAB PO SCH (06:30)
[2018-07-28 08:15] VITALS: TEMP 98.1
[2018-07-28] MEDS ORDERED: POLYETHYL GLY 3350 17 GM/DOSE PO SCH (09:00)
[2018-07-28] MEDS ORDERED: MEMANTINE HCL PO SCH (09:00)
[2018-07-28] MEDS: levETIRAcetam 500 MG TAB PO SCH (09:08)
[2018-07-28] MEDS: SERTRALINE HCL 50 MG TAB PO SCH (09:09)
[2018-07-28] MEDS: ASPIRIN 81 MG CHEWABLE TABLET PO SCH (09:09)
[2018-07-28] MEDS: RALOXIFENE HCL 60 MG TAB PO SCH (09:10)
[2018-07-28] MEDS: ENOXAPARIN 40 MG/0.4 ML SQ SCH (09:12)
[2018-07-28 09:13] VITALS: O2SAT 96
[2018-07-28 12:12] VITALS: BP 131/74
--- NOTE | 2018-07-29 04:58 | DS ---
Date of Discharge: 07/28/2018 Consultants: Dr. German with Infectious Disease. Admitting Diagnoses: 1.Frontal lobe dementia. 2.Pressure ulcers to bilateral ankles. 3.Acute pancreatitis. 4.Normal-pressure hydrocephalus. 5.Dysphagia. Discharge Diagnoses: 1.Left ankle cellulitis. Cultures negative to date. We will finish off course of oral antibiotics. Follow up with Dr. Nails [facility]. 2.Frontal lobe dementia and normal-pressure hydrocephalus. The patient was scheduled for shunt proc edure on Sunday at [facility]. However, given the infection would wait until infection is cleared silva or to any invasive procedures. 3.Osteoporosis. Continue home medications. 4.Hypothyroidism, Synthroid. 5.Urinary tract infection, acute cystitis without hematuria. Urine culture shows mixed [place]. Hospital Course: The patient is a 72-year-old female who was on hospice that was revoked. The patie nt was brought into the emergency room for wounds to the ankle. The patient incidentally found to [place] ve elevated lipase level, however, did not have any abdominal pain or symptoms of pancreatitis. The patient is fully dependent for her care and was on hospice services as mentioned. The patient was sc heduled for a shunt procedure on Sunday at [facility] for normal-pressure hydrocephalus. However, giv en her cellulitis, the patient will need to have this delayed. Family was informed. The patient's [facility] care physician is Dr. Nails who is out of town while the hospitalists are covering. The pat ient was started on IV antibiotics. Cultures were obtained, which did not show any growth to date. Infectious Disease, Dr. German was consulted. He recommended oral antibiotics. The patient is doing well. She was awake, and unfortunately, due to her frontal lobe dementia and normal-pressure hydroc ephalus, does not communicate. The patient's vital signs were stable. Her lactate was trending down . White count was normal. No signs of sepsis. Ankle CT and foot CT did not show any osteomyelitis. She did have some edema consistent with cellulitis. The patient was then cleared for discharge wit [facility]. Family unsatisfied with current Home Health as they do not come when asked, and she h as not received proper wound care in their mind. Therefore, we will provide list of new local [facility] rather than the one from [place]. The patient was then discharged home in a stable con dition. Overall, her prognosis is poor. She will likely go back on hospice. She needs to follow up with Dr. Nails in the next 2 to 3 days in the [facility] and have a repeat UA. She is t o follow up with the Infectious Disease, Dr. German in 2 weeks. Return to ER for worsening condition . Activity: Fall precautions. Diet: Careful hand feeding due to her dysphagia. The patient is on hospice. Medications: As per medication reconciliation list. did request medication for yeast as she is susceptible due to antibiotics. Physical Examination: General: Awake, nonverbal, no acute distress. CV: S1, S2. No murmurs. Peripheral pulses present. Respiratory: Moving air well bilaterally. Abdomen: Soft, nontender, nondistended. Positive bowel sounds. Extremities: No clubbing, cyanosis, edema. Skin: The patient has left ankle wound on the lateral aspect and heel wounds. Total time spent discharging the patient was 32 minutes. MARY Voice ID: [id number] Report ID: [id number]
== END 2018-07-28 13:54 | disposition home health service (06) | DRG 603 ==
LOC: ER 18:57 → ERHOLD 23:11 → 4TH 23:24
PROVIDERS: ADMIT Hospitalist; ATTEND Hospitalist
DX: L03.116 Cellulitis of left lower limb (principal); G91.2 (Idiopathic) normal pressure hydrocephalus; N30.00 Acute cystitis without hematuria; G31.09 Other frontotemporal neurocognitive disorder; F02.80 Dementia in other diseases classified elsewhere, unspecified severity, without behavioral disturbance, psychotic disturbance, mood disturbance, and anxiety; M81.0 Age-related osteoporosis without current pathological fracture; E03.9 Hypothyroidism, unspecified; R13.10 Dysphagia, unspecified; L89.529 Pressure ulcer of left ankle, unspecified stage; L89.519 Pressure ulcer of right ankle, unspecified stage; Z79.82 Long term (current) use of aspirin; Z23 Encounter for immunization
CPT/HCPCS: 36415; 51702; 71045; 73700; 80048; 80053; 80076; 81001; 82962; 83605; 83690; 84145; 84484; 85025; 85610; 87040; 87070; 87075; 87077; 87086; 87088; 87186; 87205; 90670; 93005; 94640; 96361; 96365; 99285; G0009; J0696; J1650; J2543; J7030

== ENCOUNTER 2018-09-03 18:10 | Inpatient (IN) | payer OTHER ==
--- OUTSIDE RECORDS SUMMARY | 2018-09-03 18:13 | XMS REPORT | Clinical Summary ---
:1945 Author Organization [facility] Address [address] [place] [address] Care Team Providers Name Role Phone Darrell [...] mg (200 mg tabletIndications: total) by Seizures (HCC) mouth 3 (three) times a day. memantine [...] Active (MIRALAX) 17 gram mouth daily. 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 Office Visit Neurosurgery Kasey Robin NPH (normal pressure hydrocephalus) (Primary Dx); MD Theodore Aphasia 07/10/2018 Anesthesia Event Pre-Admission Lila Rand Thomas APRN 07/10/2018 Orders Only Neurosurgery Kasey Robin NPH [...] Santiago MD 03/27/2018 Procedure Pass Neurology 03/26/2018 Hospital Encounter Neurology [facility], Multiple falls (Primary Dx) ; - MD [place] Dementia of frontal lobe type 03/29/2018 03/26/2018 Hospital Encounter Radiology Brant Adams Traumatic injury of MD Ailin head, sequela 03/26/2018 Hospital Encounter Neurology Brant Adams Seizures MD Ailin 03/26/2018 Hospital Encounter Radiology Brant Adams Traumatic injury of MD Ailin head, sequela 03/26/2018 Office Visit [...] vitamin B12 deficiency, unspecified B12 deficiency type after 09/02/2017 Family History Medical History Relation Name Comments [...] Treatment Date Type Specialty Care Team Description 10/02/2018 Office Visit Neurology Brant Adams MD [address] [address] Health Maintenance Due Date Last Done [...] procedure are in the results section. after 09/02/2017 Results XR Chest 2 Vw (07/10/2018 2:21 PM) Narrative Performed At [facility], 07/10/2018 [facility] Clinical history:Preoperative evaluation. Normal pressure hydrocephalus. [...] IMPRESSION: No acute abnormality. Performing Organization Address [facility] Phone Number [facility] [address] [place] [address] ECG 12 lead (07/10/2018 1:42 PM) Ventricular rate 78 [facility] MUSE Atrial rate 78 [facility] M[facility] IN interval 158 [facility] M[facility] QRSD interval 64 [facility] M[facility] QT interval 374 [facility] MUSE QTC interval 426 [facility] M[facility] P axis 1 39 [facility] MUSE QRS axis 1 -11 [facility] M[facility] T wave axis 10 [facility] MUSE EKG impression Normal sinus rhythm-Low voltage QRS-Inferior [facility] MUSE infarct , age undetermined-Cannot rule out Anterior infarct , age undetermined-Abnormal ECG-No previous ECGs available- Performing Organization Address [facility] Phone Number [facility] [employer] [address] [place] [address] Partial thromboplastin time, activated (07/10/2018 1:40 PM) PTT 26.8 23.0 - 36.0 sec [facility] DEPARTMENT OF PATHOLOGY Comment: AND GENOMIC MEDICINE PTT therapeutic range for unfractionated heparin is 61.0-112.0 seconds which corresponds to Anti-Xa 0.3-0.7 U/ml. Specimen Blood Performing Organization Address City/[facility]/Zipcode Phone Number [facility] DEPARTMENT OF PATHOLOGY AND [address] [place] [address] [employer] [facility] Prothrombin time with INR (07/10/2018 1:40 PM) Prothrombin time 13.2 12.0 - 15.0 sec [facility] DEPARTMENT OF PATHOLOGY AND GENOMIC MEDICINE INR 1.0 [facility] DEPARTMENT OF Comment: PATHOLOGY AND GENOMIC The International Normalized Ratio (INR) is a therapeutic MEDICINE monitoring tool for patients who are stable on oral anticoagulant therapy. An INR of 2.0-3.0 is suggested for deep vein thrombosis/pulmonary embolism. Specimen Blood Performing Organization Address City/[facility]/Zipcode Phone Number [facility] PATHOLOGY AND [address] [place], [place] [id number] [facility] CBC with platelet and differential (07/10/2018 1:40 PM)Only the most recent of3 resultswithin the time period is included. WBC 9.62 4.50 - 11.00 k/uL [facility] DEPARTMENT OF PATHOLOGY AND GENOMIC MEDICINE RBC 4.78 4.20 - 5.50 m/uL [facility] DEPARTMENT OF PATHOLOGY AND GENOMIC MEDICINE HGB 14.6 12.0 - 16.0 g/dL [facility] DEPARTMENT OF PATHOLOGY AND GENOMIC MEDICINE HCT 47.0 37.0 - 47.0 % [facility] DEPARTMENT OF PATHOLOGY AND GENOMIC MEDICINE MCV 98.3 82.0 - 100.0 fL [facility] DEPARTMENT OF PATHOLOGY AND GENOMIC MEDICINE MCH 30.5 27.0 - 34.0 pg [facility] DEPARTMENT OF PATHOLOGY AND GENOMIC MEDICINE MCHC 31.1 31.0 - 37.0 g/dL [facility] DEPARTMENT OF PATHOLOGY AND GENOMIC MEDICINE RDW - SD 50.6 37.0 - 55.0 fL [facility] DEPARTMENT OF PATHOLOGY AND GENOMIC MEDICINE MPV 9.5 8.8 - 13.2 fL [facility] DEPARTMENT OF PATHOLOGY AND GENOMIC MEDICINE Platelet count 229 150 - 400 k/uL [facility] DEPARTMENT OF PATHOLOGY AND GENOMIC MEDICINE Nucleated RBC 0.00 /100 WBC [facility] DEPARTMENT OF PATHOLOGY AND GENOMIC MEDICINE Neutrophils 55.3 39.0 - 69.0 % [facility] DEPARTMENT OF PATHOLOGY AND GENOMIC MEDICINE Lymphocytes 35.2 25.0 - 45.0 % [facility] DEPARTMENT OF PATHOLOGY AND GENOMIC MEDICINE Monocytes 5.4 0.0 - 10.0 % [facility] DEPARTMENT OF PATHOLOGY AND GENOMIC MEDICINE Eosinophils 3.5 0.0 - 5.0 % [facility] DEPARTMENT OF PATHOLOGY AND GENOMIC MEDICINE Basophils 0.4 0.0 - 1.0 % [facility] DEPARTMENT OF PATHOLOGY AND GENOMIC MEDICINE Immature granulocytes 0.2Comment: 0.0 - 1.0 % [facility] DEPARTMENT OF "Immature PATHOLOGY AND GENOMIC granulocytes" MEDICINE (promyelocytes, myelocytes, metamyelocytes) Specimen Blood Performing Organization Address City/[facility]/Zipcode Phone Number [facility] DEPARTMENT OF PATHOLOGY AND [address] [place] [address] GENOMIC MEDICINE Type and screen (07/10/2018 1:40 PM) ABO grouping B [facility] DEPARTMENT OF PATHOLOGY AND GENOMIC MEDICINE Rh type POS [facility] DEPARTMENT OF PATHOLOGY AND GENOMIC MEDICINE Antibody screen (gel) NEG [facility] DEPARTMENT OF PATHOLOGY AND GENOMIC MEDICINE Specimen Blood Performing Organization Address [facility] Phone Number [facility] DEPARTMENT OF PATHOLOGY AND [address] [place] [address] MEDICINE Estimated GFR (07/10/2018 1:08 PM)Only the most recent of3 resultswithin the time period is included. GFR Non Af Amer 54 (A) mL/min/1.73 m2 [facility] DEPARTMENT OF PATHOLOGY AND GENOMIC MEDICINE GFR Af Amer 66 mL/min/1.73 m2 [facility] DEPARTMENT OF Comment: PATHOLOGY AND GENOMIC Chronic [...] Americans. Specimen Plasma specimen Performing Organization Address City/[facility]/Zipcode Phone Number [facility] DEPARTMENT OF PATHOLOGY AND [address] [place] [address] Basic metabolic panel (07/10/2018 1:08 PM)Only the most recent of2 resultswithin the time period is included. Sodium 142 135 - 148 mEq/L [facility] DEPARTMENT OF PATHOLOGY AND GENOMIC MEDICINE Potassium 4.3 3.5 - 5.0 mEq/L [facility] DEPARTMENT OF PATHOLOGY AND GENOMIC MEDICINE Chloride 101 98 - 112 mEq/L [facility] DEPARTMENT OF PATHOLOGY AND GENOMIC MEDICINE CO2 29 24 - 31 mEq/L [facility] DEPARTMENT OF PATHOLOGY AND GENOMIC MEDICINE Anion gap 12@ANIO 7 - 15 mEq/L [facility] DEPARTMENT OF PATHOLOGY AND GENOMIC MEDICINE BUN 18 8 - 23 mg/dL [facility] DEPARTMENT OF PATHOLOGY AND GENOMIC MEDICINE Creatinine 1.0 (H) 0.5 - 0.9 mg/dL [facility] DEPARTMENT OF PATHOLOGY AND GENOMIC MEDICINE Glucose 100 (H) 65 - 99 mg/dL [facility] DEPARTMENT OF PATHOLOGY AND GENOMIC MEDICINE Calcium 9.3 8.8 - 10.2 mg/dL [facility] DEPARTMENT OF PATHOLOGY AND GENOMIC MEDICINE Specimen Plasma specimen Performing Organization Address City/State/Zipcode Phone Number [facility] DEPARTMENT OF PATHOLOGY AND [address] [place], [place] [id number] [facility] Magnesium level (03/29/2018 5:10 AM) Magnesium 2.2 1.6 - 2.4 mg/dL [facility] DEPARTMENT OF PATHOLOGY AND GENOMIC MEDICINE Specimen Plasma specimen Performing Organization Address City/[facility] Phone Number [facility] DEPARTMENT OF PATHOLOGY AND [address] [place] [address] MRI Brain Wo Contrast (03/28/2018 4:41 PM)Only [...] cerebral hemisphere, mostly along right perirolandic distribution. [facility]-[id number] Procedure Note [facility], Radiology Results Incoming - 03/28/2018 10:24 PM [...] cerebral hemisphere, mostly along right perirolandic distribution. [facility]-[id number] Performing Organization Address City/State/Zipcode Phone Number [facility] [address] [place] [address] IR Lumbar Puncture by Radiology (03/28/2018 10:03 AM) Narrative Performed At EXAMINATION:IR LUMBAR PUNCTURE VISHNU[facility]UAN CLINICAL HISTORY:Normal pressure hydrocephalus COMPARISON:None. FINDINGS: Informed [...] lumbar puncture to evaluate normal pressure hydrocephalus. [facility]-[id number] Procedure Note Interface, Radiology Results Incoming - [...] lumbar puncture to evaluate normal pressure hydrocephalus. [facility]-[id number] Performing Organization Address City/State/Zipcode Phone Number [facility] [address] [place] [address] Protein 14.3.3 Tau Theta, CSF (03/28/2018 9:57 AM) Protein 14.3.3 Tau, CSF see note [facility] Comment: 14-3-3 Protein Tau/Theta, CSF [facility] test code [id number] Source:CSF Specimen Condition: Clear Estimated probability of [...] and their performance characteristics determined by the [facility] and they have not been cleared or approved by the FDA. These assays should be used in conjunction with other clinical, pathological and laboratory findings. Joel Patel M.D. sent to [facility] [employer] Performed at: [facility], [address] [facility], [address], [place] [address] Specimen Serum Performing Organization Address City/State/Zipcode Phone Number [facility] [address] [place] [address] AB42 Tau, CSF (03/28/2018 9:57 AM) AB42 Tau, CSF SEE NOTE [facility] DEPARTMENT OF PATHOLOGY Comment: AND [employer] Phospho-Tau / Total-Tau / A Beta [...] Recommendations: Health care providers, please contact the [employer] Client Services Department at if you wish to speak with a clinical image consultant regarding this test result. sent to [facility] performing site [employer] [address] [place] [phone] Performing Organization Address City/[facility]/Zipcode Phone Number [facility] DEPARTMENT OF PATHOLOGY AND [address] [place] [address] [employer] culture (03/28/2018 9:57 AM) AFB culture isolate No growth after 6 weeks of incubation. [facility] DEPARTMENT OF PATHOLOGY Comment: AND [employer] Specimen Information Specimen Source: CSF (Spinal Fluid) Specimen Site: CSF (spinal fluid) Specimen Cerebrospinal fluid - CSF (spinal fluid) Performing Organization Address City/[facility]/Zipcode Phone Number [facility] DEPARTMENT OF PATHOLOGY AND [address] [place] [address] [employer] Cryptococcal antigen, screen (03/28/2018 9:57 AM) Cryptococcal Ag Negative - No Cryptococcus antigen detected. [facility] DEPARTMENT OF PATHOLOGY Comment: AND GENOMIC MEDICINE Specimen Information Specimen Source: CSF (Spinal Fluid) Specimen Site: CSF (spinal fluid) Specimen Cerebrospinal fluid - CSF (spinal fluid) Performing Organization Address City/State/Zipcode Phone Number [facility] DEPARTMENT OF PATHOLOGY AND [address] [place] [phone] GENOMIC MEDICINE Oligoclonal banding, CSF (03/28/2018 9:57 AM) Protein, CSF 29 15 - 45 mg/dL [facility] DEPARTMENT OF PATHOLOGY AND GENOMIC MEDICINE Prealbumin, CSF 4.7 3.5 - 11.1 % [facility] DEPARTMENT OF PATHOLOGY AND GENOMIC MEDICINE Albumin, CSF 61.3 40.8 - 66.2 % [facility] DEPARTMENT OF PATHOLOGY AND GENOMIC MEDICINE Alpha 1, CSF 3.8 2.3 - 6.4 % [facility] DEPARTMENT OF PATHOLOGY AND GENOMIC MEDICINE Alpha 2, CSF 8.7 6.1 - 12.6 % [facility] DEPARTMENT OF PATHOLOGY AND GENOMIC MEDICINE Beta, CSF 15.2 11.7 - 24.1 % [facility] DEPARTMENT OF PATHOLOGY AND GENOMIC MEDICINE Gamma, CSF 6.3 5.6 - 12.2 % [facility] DEPARTMENT OF PATHOLOGY AND GENOMIC MEDICINE CSF extended See CommentComment: No [facility] DEPARTMENT OF interpretation oligoclonal bands are PATHOLOGY AND GENOMIC seen. MEDICINE CSF interpretation See CommentComment: [facility] DEPARTMENT OF Arron Holliday MD; PATHOLOGY AND GENOMIC Tremaine Vicente PhD; MEDICINE González Gross MD PhD Specimen Cerebrospinal fluid Performing Organization Address City/[facility] Phone Number [facility] DEPARTMENT OF PATHOLOGY AND [address] [place] [phone] GENOMIC MEDICINE Gram stain (03/28/2018 9:57 AM) Gram stain isolate Rare WBC's [facility] DEPARTMENT OF PATHOLOGY No organisms seen AND GENOMIC MEDICINE Comment: Specimen Information Specimen Source: CSF (Spinal Fluid) Specimen Site: CSF (spinal fluid) Specimen Cerebrospinal fluid - CSF (spinal fluid) Performing Organization Address City/State/Zipcode Phone Number [facility] DEPARTMENT OF PATHOLOGY AND [address] [place] [address] [employer] MEDICINE CSF culture (03/28/2018 9:57 AM) CSF culture isolate Staphylococcus hominis [facility] DEPARTMENT OF Recovered in Broth only: PATHOLOGY [...] <=0.5/9.5 mcg/mL: le Susceptible Performing Organization Address [facility] Phone Number [facility] DEPARTMENT OF PATHOLOGY AND [address] [place] [address] [employer] [facility] Fungus culture (03/28/2018 9:57 AM) Fungus culture isolate No growth after 4 weeks of incubation. [facility] DEPARTMENT OF Comment: PATHOLOGY AND GENOMIC Specimen Information MEDICINE Specimen Source: CSF (Spinal Fluid) Specimen Site: CSF (spinal fluid) Specimen Cerebrospinal fluid - CSF (spinal fluid) Performing Organization Address City/[facility] Phone Number [facility] DEPARTMENT OF PATHOLOGY AND [address] [place] [address] [facility] CSF cell count with differential (03/28/2018 9:57 AM) Color, CSF Colorless [facility] DEPARTMENT OF PATHOLOGY AND GENOMIC MEDICINE Appearance, CSF Clear [facility] DEPARTMENT OF PATHOLOGY AND GENOMIC MEDICINE RBC, CSF 122 (H) 0 - 1 /CMM [facility] DEPARTMENT OF PATHOLOGY AND GENOMIC MEDICINE WBC, CSF 3 0 - 5 /CMM [facility] DEPARTMENT OF PATHOLOGY AND GENOMIC MEDICINE CSF mononuclear cell 3/CMM [facility] DEPARTMENT OF PATHOLOGY AND GENOMIC MEDICINE Specimen Cerebrospinal fluid Performing Organization Address City/[facility] Phone Number [facility] DEPARTMENT OF PATHOLOGY AND [address] [place] [address] [employer] MEDICINE VDRL, CSF screen (03/28/2018 9:57 AM) VDRL, CSF screen Non-reactive Non-reactive [facility] DEPARTMENT OF PATHOLOGY AND GENOMIC MEDICINE Specimen Cerebrospinal fluid Performing Organization Address City/[facility] Phone Number [facility] DEPARTMENT OF PATHOLOGY AND [address] [place] [address] Glucose level, CSF (03/28/2018 9:57 AM) Glucose, CSF 62 40 - 70 mg/dL [facility] DEPARTMENT OF PATHOLOGY AND GENOMIC MEDICINE Specimen Cerebrospinal fluid Performing Organization Address City/[facility] Phone Number [facility] DEPARTMENT OF PATHOLOGY AND [address] [place] [address] Syphilis treponemal IgG (03/26/2018 9:20 PM) Syphilis treponemal IgG Non-reactiveComment: Non-reactive [facility] DEPARTMENT OF Non-reactive: No PATHOLOGY AND GENOMIC serological evidence of MEDICINE Syphilis infection Specimen Serum Performing Organization Address [facility] Phone Number [facility] DEPARTMENT OF PATHOLOGY AND [address] [place] [address] SUMMER titer (03/26/2018 9:20 PM) SUMMER titer >1:320 (A) Not-Detected [facility] DEPARTMENT OF PATHOLOGY AND GENOMIC MEDICINE SUMMER titer 1 1:640 (A) Not-Detected [facility] DEPARTMENT OF PATHOLOGY AND GENOMIC MEDICINE SUMMER pattern Centromere (A) Not-Detected [facility] DEPARTMENT OF PATHOLOGY AND GENOMIC MEDICINE Specimen Blood Performing Organization Address [facility] Phone Number [facility] DEPARTMENT OF PATHOLOGY AND [address] [place] [address] Sedimentation rate (03/26/2018 9:20 PM) Sedimentation rate 11 0 - 20 mm/hr [facility] DEPARTMENT OF PATHOLOGY AND GENOMIC MEDICINE Specimen Blood Performing Organization Address [facility] Phone Number [facility] DEPARTMENT OF PATHOLOGY AND [address] [place] [address] SUMMER (03/26/2018 9:20 PM) SUMMER screen Positive (A) Negative [facility] DEPARTMENT OF PATHOLOGY AND GENOMIC MEDICINE Specimen Blood Performing Organization Address [facility] Phone Number [facility] DEPARTMENT OF PATHOLOGY AND [address] [place] [address] Thyroid stimulating hormone (03/26/2018 9:20 PM) TSH 3.79 0.27 - 4.20 uIU/mL [facility] DEPARTMENT OF PATHOLOGY AND GENOMIC MEDICINE Specimen Plasma specimen Performing Organization Address [facility]/Zipcode Phone Number [facility] DEPARTMENT OF PATHOLOGY AND [address] [place] [address] T4, free (03/26/2018 9:20 PM) T4, free 1.4 0.9 - 1.7 ng/dL [facility] DEPARTMENT OF PATHOLOGY AND GENOMIC MEDICINE Specimen Plasma specimen Performing Organization Address [facility] Phone Number [facility] DEPARTMENT OF PATHOLOGY AND [address] [place] [address] Folate level (03/26/2018 9:20 PM) Folate 7.8 4.8 - 24.2 ng/mL [facility] DEPARTMENT OF PATHOLOGY AND GENOMIC MEDICINE Specimen Serum Performing Organization Address [facility] Phone Number [facility] DEPARTMENT OF PATHOLOGY AND [address] [place] [address] Vitamin B12 level (03/26/2018 9:20 PM) Vitamin B12 >1600 (H) 211 - 946 pg/mL [facility] DEPARTMENT OF PATHOLOGY Comment: AND [facility] MEDICINE Significant overlap exists between normal and deficiency states. However, most patients with deficiencies will have Serum B12 <200 pg/mL. Specimen Serum Performing Organization Address [facility] Phone Number [facility] DEPARTMENT OF PATHOLOGY AND [address] [place] [address] Ammonia level (03/26/2018 9:20 PM) Ammonia 41 11 - 51 umol/L [facility] DEPARTMENT OF PATHOLOGY AND GENOMIC MEDICINE Specimen Blood Performing Organization Address [facility] Phone Number [facility] DEPARTMENT OF PATHOLOGY AND [address] [place] [address] Comprehensive metabolic panel (03/26/2018 9:20 PM) Sodium 144 135 - 148 mEq/L [facility] DEPARTMENT OF PATHOLOGY AND GENOMIC MEDICINE Potassium 4.6 3.5 - 5.0 mEq/L [facility] DEPARTMENT OF PATHOLOGY AND GENOMIC MEDICINE Chloride 104 98 - 112 mEq/L [facility] DEPARTMENT OF PATHOLOGY AND GENOMIC MEDICINE CO2 28 24 - 31 mEq/L [facility] DEPARTMENT OF PATHOLOGY AND GENOMIC MEDICINE Anion gap 12@ANIO 7 - 15 mEq/L [facility] DEPARTMENT OF PATHOLOGY AND GENOMIC MEDICINE BUN 18 8 - 23 mg/dL [facility] DEPARTMENT OF PATHOLOGY AND GENOMIC MEDICINE Creatinine 1.1 (H) 0.5 - 0.9 mg/dL [facility] DEPARTMENT OF PATHOLOGY AND GENOMIC MEDICINE Glucose 100 (H) 65 - 99 mg/dL [facility] DEPARTMENT OF PATHOLOGY AND GENOMIC MEDICINE Calcium 9.3 8.8 - 10.2 mg/dL [facility] DEPARTMENT OF PATHOLOGY AND GENOMIC MEDICINE Protein 7.1 6.3 - 8.3 g/dL [facility] DEPARTMENT OF Comment: PATHOLOGY AND GENOMIC 4.6-7.0 g/dL MEDICINE 1 week 4.4-7.6 g/dL 7 months-1year5.1-7.3 g/dL 1-2 years5.6-7.5 g/dL >3 years6.0-8.0 g/dL 18-150 6.3-8.3 g/dL Albumin 3.1 (L) 3.5 - 5.0 g/dL [facility] DEPARTMENT OF PATHOLOGY AND GENOMIC MEDICINE A/G ratio 0.8 0.7 - 3.8 [facility] DEPARTMENT OF PATHOLOGY AND GENOMIC MEDICINE Alkaline phosphatase 40 35 - 104 U/L [facility] DEPARTMENT OF PATHOLOGY AND GENOMIC MEDICINE AST 24 10 - 35 U/L [facility] DEPARTMENT OF PATHOLOGY AND GENOMIC MEDICINE ALT 15 5 - 50 U/L [facility] DEPARTMENT OF PATHOLOGY AND GENOMIC MEDICINE Total bilirubin 0.3 0.0 - 1.2 mg/dL [facility] DEPARTMENT OF PATHOLOGY AND GENOMIC MEDICINE Specimen Plasma specimen Performing Organization Address City/State/Zipcode Phone Number [facility] DEPARTMENT OF PATHOLOGY AND [address] [place] [address] [facility] Outpatient EEG (03/26/2018 2:32 PM) Narrative Performed [...] Adams at 1305 hours. He verbalized understanding. SHOALS [id number] Procedure Note Interface, Radiology Results Incoming - [...] Adams at 1305 hours. He verbalized understanding. [facility]-[id number] Performing Organization Address City/State/Zipcomt Phone Number [facility] [address] [place] [address] after 09/02/2017 Insurance Payer Benefit Plan / Group Subscriber ID Type Phone Address MEDICARE MEDICARE PART A AND B xxxxxxxxxx Medicare [place], [place] AETNA A[employer] INDEMNITY xxxxxxxxx Indemnity [phone] [place] [id number]
--- OUTSIDE RECORDS SUMMARY | 2018-09-03 18:13 | XMS REPORT ---
:1945 Author Organization [facility] Address [address] [place] [address] Dr. Mckeon [address] [place] [id number] Care Team Providers Name Role Phone ZANDRA ARMSTRONG Unavailable Unavailable Problems This patient has no known problems. Allergies, Adverse Reactions, Alerts This patient has no known allergies or adverse reactions. Medications This patient has no known medications. Results Test Description Test Time Test Comments Text Results Atomic Results Result Comments CHEST 2018-08-27 [facility] SINGLE 06:37:[address] (PORTABLE) [id number] Patient Name: SHANELL BURNETT MR #: [id number] : 1945 Age/Sex: 72/ F Req #: [id number] Adm Physician: Ordered by: ZANDRA ARMSTRONG MD Report #: [id number] Location: OR Room/Bed: Procedure: [id number] DX/CHEST SINGLE (PORTABLE) Exam Date: Exam Time: REPORT STATUS: Signed EXAMINATION: CHEST SINGLE (PORTABLE) INDICATION: Presurgical assessment COMPARISON: None FINDINGS: TUBES and LINES: None. LUNGS: Lungs are not well inflated. There are bibasilar atelectasis. There is mild prominence of the central pulmonary vasculature, consistent with pulmonary venous congestion. PLEURA: No pleural effusion or pneumothorax. HEART AND MEDIASTINUM: The cardiomediastinal silhouette is unremarkable. BONES AND SOFT TISSUES: No acute osseous lesion. Soft tissues are unremarkable. UPPER ABDOMEN: No free air under the diaphragm. IMPRESSION: No acute thoracic abnormality. Signed by: Dr. Jorge Boyce M.D. on 08/27/2018 6:38 AM Dictated By: JORGE VILLELA MD 7 Transcribed By: ELOY on 08/27/18637 COPY TO: ZANDRA ARMSTRONG MD
[2018-09-03 19:07] LABS: Arterial Blood Carboxyhemoglob 0.9 % (0-1.5); Blood Gas Oxyhemoglobin 87.3 % (94-97); Blood O2 Saturation 88.7 % (92-98.5)
[2018-09-03 19:18] LABS: Absolute Lymphocytes (CBC) 4.5 K/uL (0.7-4.9); Absolute Monocytes 1.1 K/uL (0.1-1.3); Basophils % 0.4 % (0-1.3); Eosinophils % 0.5 % (0-4.4); Hematocrit 42.9 % (36.0-45.0); Lymphocytes % 22.7 % (15.3-44.8); MCH 30.7 pg (27.0-35.0); MCV 94.1 fL (80-100); MPV 7.5 fL (7.6-11.3); Monocytes % 5.6 % (3.3-12.3); RBC Red Blood Cell Count 4.55 M/uL (3.86-4.86)
[2018-09-03 19:21] LABS: Protime INR 1.12
[2018-09-03 19:47] LABS: Albumin 3.3 g/dL (3.4-5.0); Bilirubin Direct 0.1 mg/dL (0-0.2); Bilirubin Total 0.4 mg/dL (0.2-1.0); Potassium 3.9 mmol/L (3.5-5.1); Protein, Total 7.9 g/dL (6.4-8.2); Troponin (Emerg Dept Use Only) 4.11 ng/mL (0.0-0.045)
[2018-09-03 19:48] LABS: CKMB Creatine Kinase MB 11.3 ng/mL (0.3-3.6)
--- NOTE | 2018-09-03 19:55 | RAD REPORT ---
EXAM DESCRIPTION: RAD - Chest Single View - 09/03/2018 7:47 pm CLINICAL HISTORY: Chest pain, shortness of breath COMPARISON: Portable chest July 26, CT trauma study March 2018 TECHNIQUE: AP portable chest image was obtained 1934 hours . FINDINGS: Lung volumes are low. There is patchy opacification in the lower left lung field that coul d be atelectasis or early infiltrate. No failure or volume overload. Nodular focus at the right hilum is probably vasculature seen on end. No evidence for mass in the March CT study. A repeat PA and later al chest film when tolerable by the patient could help further evaluate this finding. Heart size is normal. Upper vasculature within normal limits. Mediastinum and hilar regions are dist orted by rotation. No measurable pleural effusion and no pneumothorax. No acute bony abnormality seen . No acute aortic findings suspected. IMPRESSION: Focal interstitial stranding in the left base from atelectasis or early pneumonia. Small masslike density at the right hilum is probably part of pulmonary artery seen on end. Follow-up two-view chest film when tolerable by the patient could be utilized for re-evaluation of this findvu dixon
[2018-09-03] MEDS ORDERED: NA CHLORIDE 0.9% 1,000 ML ONE (20:31)
[2018-09-03] MEDS ORDERED: VANCOMYCIN 1 GM/250 ML BAG ONE (20:31)
[2018-09-03] MEDS ORDERED: CEFEPIME 1 GM/100 ML BAG IV ONE (20:31)
--- NOTE | 2018-09-03 20:33 | EDPHYS ---
Physician Documentation [facility] Name: Domitila Corley Age: 72 yrs Sex: Female : 1945 Arrival Date: 09/03/2018 Time: 18:11 Bed 2 Private MD: Darrell Nails ED Physician Saúl Ochoa HPI: 09/03 20:33 This 72 yrs old Female presents to ER via Wheelchair with complaints of Near gs Syncope. 20:33 Onset: The symptoms/episode began/occurred acutely, just prior to arrival. Duration: gs This was a single episode. Associated injury: The patient did not suffer any apparent associated injury. Unable to obtain HPI due to baseline dementia, patient distress. Historical: - Allergies: 18:47 NKA; tw2 - Home Meds: 18:47 alendronate sodium-cholecalciferol(vitamin D3) Oral once wkly [Active]; levetiracetam tw2 500 mg Oral tab 1 tab daily [Active]; levothyroxine 150 mcg tab 1 tab once daily [Active]; memontino ER 28 mg [Active]; Miralax 17 gram Oral pwpk 1 packet once daily [Active]; raloxifene 60 mg Oral tab 1 tab once daily [Active]; sertraline 50 mg oral tab 1 tab once daily [Active]; memantine 10 mg oral tab 1 tab 2 times per day [Active]; donepezil 10 mg oral tab 1 tab once daily [Active]; - PMHx: 18:47 Alzheimers; Osteoporosis; Thyroid problem; tw2 - PSHx: 18:47 None; tw2 - Immunization history:: Adult Immunizations. - Social history:: Smoking status: . - Ebola Screening: : Patient denies travel to an Ebola-affected area in the 21 days before illness onset. ROS: 20:33 Unable to obtain ROS due to baseline dementia, patient distress. gs Exam: 20:33 Head/Face: Normocephalic, atraumatic. Eyes: Pupils equal round and reactive to light, gs extra-ocular motions intact. Lids and lashes normal. Conjunctiva and sclera are non-icteric and not injected. Cornea within normal limits. Periorbital areas with no swelling, redness, or edema. ENT: Nares patent. No nasal discharge, no septal abnormalities noted. Tympanic membranes are normal and external auditory canals are clear. Oropharynx with no redness, swelling, or masses, exudates, or evidence of obstruction, uvula midline. Mucous membranes moist. Neck: Trachea midline, no thyromegaly or masses palpated, and no cervical lymphadenopathy. Supple, full range of motion without nuchal rigidity, or vertebral point tenderness. No Meningismus. Chest/axilla: Normal chest wall appearance and motion. Nontender with no deformity. No lesions are appreciated. 20:33 Abdomen/GI: Soft, non-tender, with normal bowel sounds. No distension or tympany. No guarding or rebound. No evidence of tenderness throughout. Back: No spinal tenderness. No costovertebral tenderness. Full range of motion. 20:33 Constitutional: The patient appears awake, in obvious distress, severely distressed. 20:33 Cardiovascular: Rate: tachycardic, Rhythm: regular, Pulses: no pulse deficits are appreciated. 20:33 ECG was reviewed by the Attending Physician. 20:33 Respiratory: moderate respiratory distress is noted, Respirations: tachypnea, Breath sounds: rhonchi, that are mild, are heard diffusely. 20:33 Musculoskeletal/extremity: Exam is negative for acute changes, bony tenderness. 20:33 Skin: WOUND CELLULITIS LEFT LEG. 20:33 Neuro: Exam negative for acute changes, Motor: moves all fours. Vital Signs: 18:27 Pulse Ox 79% on R/A; tw2 18:27 BP 92 / 61; Pulse 105; Resp 16; Temp 97.6(A); Pulse Ox 79% on R/A; tw2 18:50 BP 103 / 76; Pulse 110; Resp 20; Pulse Ox 89% on NC; aj1 19:41 BP 101 / 75; Pulse 101; Resp 22; Pulse Ox 93% on 50% Venturi mask; aa1 20:47 BP 115 / 73; Pulse 94; Resp 20; Temp 97.1; Pulse Ox 96% on 50% Venturi mask; Weight aa1 70.31 kg; Height 5 ft. 8 in. (172.72 cm); Pain 0/10; 21:58 BP 107 / 72; Pulse 87; Resp 18; Pulse Ox 96% on 50% Venturi mask; Pain 0/10; aa1 20:47 Body Mass Index 23.57 (70.31 kg, 172.72 cm) aa1 18:27 provider notified, pt placed on o2 via nc at 3L at this time. tw2 MDM: 18:39 Patient medically screened. gs 20:33 Differential Diagnosis: cardiac arrhythmia, drug effect, seizure, sepsis, mi. Data gs reviewed: vital signs, nurses notes. Response to treatment: the patient's symptoms have markedly improved after treatment, and as a result, I will admit patient. 09/03 18:40 Order name: Basic Metabolic Panel 09/03 18:40 Order name: Blood Culture Adult (2) 09/03 18:40 Order name: CBC with Diff; Complete Time: 19:50 09/03 18:40 Order name: Ckmb; Complete Time: 20:01 09/03 18:40 Order name: CPK; Complete Time: 20:01 09/03 18:40 Order name: Lactate; Complete Time: 19:50 09/03 18:40 Order name: LFT's; Complete Time: 20:01 09/03 18:40 Order name: Lipase; Complete Time: 20:01 09/03 18:40 Order name: Procalcitonin; Complete Time: 19:50 09/03 18:40 Order name: Protime (+inr); Complete Time: 19:50 09/03 18:40 Order name: Ptt, Activated; Complete Time: 19:50 09/03 18:40 Order name: Troponin (emerg Dept Use Only); Complete Time: 20:01 09/03 18:40 Order name: Urine Microscopic Only 09/03 18:40 Order name: ABG; Complete Time: 19:50 09/03 18:40 Order name: Chest Single View XRAY; Complete Time: 20:01 09/03 18:40 Order name: Accucheck; Complete Time: 18:52 09/03 18:40 Order name: Cardiac monitoring; Complete Time: 18:52 09/03 18:40 Order name: EKG - Nurse/Tech; Complete Time: 18:52 09/03 18:40 Order name: IV Saline Lock - Large Bore; Complete Time: 18:52 09/03 18:41 Order name: Basic Metabolic Panel; Complete Time: 20:01 EDMS 09/03 19:51 Order name: CT Chest Wo Con 09/03 19:51 Order name: Flu 09/03 20:20 Order name: Lactate aa1 09/03 20:50 Order name: D-Dimer EDMS 09/03 21:39 Order name: Urine Dipstick--Ancillary (enter results) ms 09/03 21:57 Order name: Urine Dipstick-Ancillary EDMS 09/03 22:06 Order name: CT Chest For PE Angio bb 09/03 18:40 Order name: Labs collected and sent; Complete Time: 18:52 09/03 18:40 Order name: O2 Per Protocol; Complete Time: 18:52 09/03 18:40 Order name: O2 Sat Monitoring; Complete Time: 18:53 09/03 18:40 Order name: Urine Dipstick-Ancillary (obtain specimen); Complete Time: 21:28 09/03 18:40 Order name: Oxygen: 50 % MASK; Complete Time: 19:47 gs EC:33 Rate is 111 beats/min. Rhythm is regular. TN interval is normal. QRS interval is gs normal. T waves are Normal. No ST changes noted. Clinical impression: Sinus tachycardia. Interpreted by me. Administered Medications: 20:35 Drug: NS 0.9% 1000 ml Route: IV; Rate: 1 bolus; Site: right antecubital; aa1 22:30 Follow up: IV Status: Completed infusion rr5 20:35 Drug: Cefepime 1 grams Route: IVPB; Rate: 200 ml/hr; Infused Over: 30 mins; Site: right aa1 wrist; 21:05 Follow up: IV Status: Completed infusion aa1 20:35 Drug: vancoMYCIN 1 grams Route: IVPB; Infused Over: 2 hrs; Site: right antecubital; aa1 22:14 Follow up: IV Status: Completed infusion rr5 Point of Care Testing: Blood Glucose: 18:50 Blood Glucose: 224 mg/dL; aj1 Ranges: Critical Glucose Levels:Adult <50 mg/dl or >400 mg/dl <40 mg/dl or >180 mg/dl Disposition: 09/03/18 20:33 Hospitalization ordered by Ramana Almeida for Inpatient Admission. Preliminary diagnosis is Severe sepsis without septic shock. - Bed requested for Telemetry/MedSurg (Inpatient). - Status is Inpatient Admission. rr5 - Condition is Stable. - Problem is new. - Symptoms have improved. UTI on Admission? Yes Critical care time excluding procedures: 20:42 Critical care time: Bedside Care: 10 minutes, Consultation: 10 minutes, Family Intervention: 10 minutes. Total time: 30 minutes Signatures: Dispatcher [employer] EDMadelyn Zelaya RN RN kl Kern, Alissa RN RN aa1 Alejandra Mccoy RN RN tw2 Salú Ochoa MD MD Meng Lopez RN RN rr5 Corrections: (The following items were deleted from the chart) 22:18 20:33 Hospitalization Ordered by Ramana Almeida MD for Inpatient Admission. Preliminary diagnosis is Severe sepsis without septic shock. Bed requested for Telemetry/MedSurg (Inpatient). Status is Inpatient Admission. Condition is Stable. Problem is new. Symptoms have improved. UTI on Admission? Yes. 23:13 22:18 09/03/2018 20:33 Hospitalization Ordered by Ramana Almeida MD for Inpatient rr5 Admission. Preliminary diagnosis is Severe sepsis without septic shock. Bed requested for Telemetry/MedSurg (Inpatient). Status is Inpatient Admission. Condition is Stable. Problem is new. Symptoms have improved. UTI on Admission? Yes. raquel
--- NOTE | 2018-09-03 20:33 | ER ---
Nurse's Notes [facility] Name: Domitila Corley Age: 72 yrs Sex: Female : 1945 Arrival Date: 09/03/2018 Time: 18:11 Bed 2 Private MD: Darrell Nails Diagnosis: Severe sepsis without septic shock Presentation: 09/03 18:27 Presenting complaint: Significant other states: she was going to the bathroom and i was tw2 walking behind her help her, then she just collapsed and went to the ground, her eyes rolled back in her head, then she vomited and went to the bathroom on herself, we drove her here [place] Transition of care: patient was not received from another setting of care. Onset of symptoms was September 03, 2018. Risk Assessment: Do you want to hurt yourself or someone else? Patient reports no desire to harm self or others. Care prior to arrival: None. 18:27 Method Of Arrival: Wheelchair tw2 18:27 Acuity: LYNNE 2 tw2 18:30 Note pts spouse states this is her mental baseline. tw2 19:00 Initial Sepsis Screen: Does the patient meet any 2 criteria? Altered Mental Status. HR aa1 > 90 bpm. Does the patient have a suspected source of infection? No. Patient's initial sepsis screen is negative. Historical: - Allergies: 18:47 NKA; tw2 - Home Meds: 18:47 alendronate sodium-cholecalciferol(vitamin D3) Oral once wkly [Active]; levetiracetam tw2 500 mg Oral tab 1 tab daily [Active]; levothyroxine 150 mcg tab 1 tab once daily [Active]; memontino ER 28 mg [Active]; Miralax 17 gram Oral pwpk 1 packet once daily [Active]; raloxifene 60 mg Oral tab 1 tab once daily [Active]; sertraline 50 mg oral tab 1 tab once daily [Active]; memantine 10 mg oral tab 1 tab 2 times per day [Active]; donepezil 10 mg oral tab 1 tab once daily [Active]; - PMHx: 18:47 Alzheimers; Osteoporosis; Thyroid problem; tw2 - PSHx: 18:47 None; tw2 - Immunization history:: Adult Immunizations. - Social history:: Smoking status: . - Ebola Screening: : Patient denies travel to an Ebola-affected area in the 21 days before illness onset. Screenin:28 Abuse screen: Denies threats or abuse. Nutritional screening: No deficits noted. tw2 Tuberculosis screening: No symptoms or risk factors identified. Fall Risk Secondary diagnosis (15 points) dementia, impaired mobility. Assessment: 18:28 Reassessment: pt transferred to ER#2 at this time, BelénRN notified, Jahala and tw2 YAMILET Palomo at bedside at this time., pt started to vomit, son states "she is going to choke on her vomit she holds it in and tries not to let it out". 18:30 Reassessment: pts son states "she just had surgery on her left arm and she has a wound tw2 on her left foot". 19:15 General: Appears in no apparent distress. comfortable, Behavior is listless. Pain: aa1 Unable to use pain scale. FLACC scale score is 0 out of 10. pt aphasic. Neuro: Level of Consciousness is awake, listless, Oriented to unable to obtain; pt has aphasia and advanced Alzheimer's. reports pt is currently at her baseline . Facial symmetry appears normal, Pupils are PERRLA. Cardiovascular: Heart tones S1 S2 present Capillary refill is sluggish fingers Clubbing of nail beds is absent JVD is absent Patient's skin is warm and dry. Rhythm is regular. Respiratory: Airway is patent Respiratory effort is even, unlabored, Respiratory pattern is regular, symmetrical, Breath sounds are diminished bilaterally. GI: Abdomen is non-distended, Abd is soft X 4 quads Parent/caregiver reports the patient having vomiting. : No signs and/or symptoms were reported regarding the genitourinary system. EENT: No signs and/or symptoms were reported regarding the EENT system. Derm: Skin is intact, is healthy with good turgor, Skin is pink, warm \\T\\ dry. Derm: Decubitus located on left lateral malleolus approximately 2.6 cm to 7.5 cm is unstageable. has erythematous edges bed has eschar present is draining none noted. Musculoskeletal: Circulation, motion, and sensation intact. 20:30 Reassessment: Patient appears in no apparent distress at this time. No changes from aa1 previously documented assessment. Patient and/or family updated on plan of care and expected duration. Pain level reassessed. Awaiting admission orders. 21:55 Reassessment: Patient appears in no apparent distress at this time. No changes from aa1 previously documented assessment. Patient and/or family updated on plan of care and expected duration. Pain level reassessed. Pt awaiting bed assignment. 22:08 Reassessment: Notified Dr Lehman of pt's D Dimer [phone] received verbal order for CT bb PE protocol. 22:54 Reassessment: Patient appears in no apparent distress at this time. No changes from rr5 previously documented assessment. Report given to Sheba on 2nd floor. 23:13 Reassessment: Dr Lehman notified of [facility]'s diagnosis of bilateral PEs. bb Vital Signs: 18:27 Pulse Ox 79% on R/A; tw2 18:27 BP 92 / 61; Pulse 105; Resp 16; Temp 97.6(A); Pulse Ox 79% on R/A; tw2 18:50 BP 103 / 76; Pulse 110; Resp 20; Pulse Ox 89% on NC; aj1 19:41 BP 101 / 75; Pulse 101; Resp 22; Pulse Ox 93% on 50% Venturi mask; aa1 20:47 BP 115 / 73; Pulse 94; Resp 20; Temp 97.1; Pulse Ox 96% on 50% Venturi mask; Weight aa1 70.31 kg; Height 5 ft. 8 in. (172.72 cm); Pain 0/10; 21:58 BP 107 / 72; Pulse 87; Resp 18; Pulse Ox 96% on 50% Venturi mask; Pain 0/10; aa1 20:47 Body Mass Index 23.57 (70.31 kg, 172.72 cm) aa1 18:27 provider notified, pt placed on o2 via nc at 3L at this time. tw2 ED Course: 18:11 Patient arrived in ED. as 18:11 Darrell Nails MD is Private Physician. as 18:25 Saúl Ochoa MD is Attending Physician. gs 18:27 Arm band placed on. tw2 18:27 Bed in low position. Call light in reach. Side rails up X2. Adult w/ patient. Cardiac tw2 monitor on. Pulse ox on. NIBP on. 18:41 Triage completed. tw2 18:47 Missed attempt(s): 22 gauge in right antecubital area. Bleeding controlled, band aid aj1 applied, catheter tip intact. 19:01 Report given to YAMILET Mcadams. jl7 19:01 Initial lab(s) drawn, by me, sent to lab. Inserted saline lock: 22 gauge in right hand, jl7 using aseptic technique. Blood collected. 19:15 Patient has correct armband on for positive identification. Warm blanket given. aa1 19:15 Oxygen administration via Venturi mask \\T\\ 15L/min - 50% Response to oxygen therapy: aa1 symptoms improved. 19:33 Idalia Ortiz RN is Primary Nurse. tl2 19:45 X-ray completed. Portable x-ray completed in exam room. Patient tolerated procedure ls3 well. 19:46 Chest Single View XRAY In Process Unspecified. EDMS 19:47 Notified ED physician of a critical lab result(s). troponin of 4.11 Dr Ochoa notified. bb 19:48 Notified ED physician of a critical lab result(s). CKMB 11.3 Dr Ochoa notified. bb 20:00 Inserted saline lock: 22 gauge in right antecubital area, using aseptic technique. aa1 20:15 CT Chest Wo Con In Process Unspecified. EDMS 20:28 Ramana Almeida MD is Hospitalizing Provider. gs 20:35 Dressings: Kerlix X 1; left lateral ankle 4X4s X 1; left lateral ankle. aa1 21:31 No provider procedures requiring assistance completed. Straight cath inserted, using aa1 sterile technique, 16 Fr. Returned clear yellow urine. Patient tolerated well. Patient admitted, IV remains in place. 21:58 Notified ED physician of a critical lab result(s). D Dimer of 111,410 Dr Juancarlos jordan notified. 22:[address] sj 22:45 IV was infiltrated,removed and discontinued upon returned from ct scan. rr5 Administered Medications: 20:35 Drug: NS 0.9% 1000 ml Route: IV; Rate: 1 bolus; Site: right antecubital; aa1 22:30 Follow up: IV Status: Completed infusion rr5 20:35 Drug: Cefepime 1 grams Route: IVPB; Rate: 200 ml/hr; Infused Over: 30 mins; Site: right aa1 wrist; 21:05 Follow up: IV Status: Completed infusion aa1 20:35 Drug: vancoMYCIN 1 grams Route: IVPB; Infused Over: 2 hrs; Site: right antecubital; aa1 22:14 Follow up: IV Status: Completed infusion rr5 Point of Care Testing: Blood Glucose: 18:50 Blood Glucose: 224 mg/dL; aj1 Ranges: Outcome: 20:33 Decision to Hospitalize by Provider. 23:12 Admitted to Tele accompanied by tech, family with patient, via stretcher, room 213, rr5 with oxygen, with chart, Report called to Sheba 23:12 Condition: stable 23:12 Discharge instructions given to significant other, Instructed on the need for admit, Demonstrated understanding of instructions. 23:13 Patient left the ED. rr5 Signatures: Dispatcher [employer] EDMS Priscilla Torres, RN RN aj1 Pema Pradhan RN RN aa1 Zabrina Vargas Amelia as Ballard, Brenda RN YAMILET bb Alejandra Mccoy RN RN tw2 Idalia Ortiz RN YAMILET tl2 Philip Lombardo, RN YAMILET jl7 Saúl Ochoa MD MD Talat Nails ls3 Meng Lopez RN RN rr5 Corrections: (The following items were deleted from the chart) 18:42 18:27 Pulse Ox 77% RA; provider notified, pt placed on o2 via nc at 3L at this time.; tw2 tw2 18:44 18:28 Reassessment: pt transferred to ER#2 at this time, YAMILET Melissa notified, Philip and tw2 YAMILET Palomo at bedside at this time. tw2
--- NOTE | 2018-09-03 20:44 | RAD REPORT ---
EXAM DESCRIPTION: CT - Thorax Wo Con - 09/03/2018 8:15 pm CLINICAL HISTORY: Shortness of breath COMPARISON: Chest films same date TECHNIQUE: Axial 5 mm thick images of the chest were obtained without IV contrast. All CT scans are performed using dose optimization technique as appropriate and may include automated exposure control or mA/KV adjustment according to patient size. FINDINGS: No focal consolidation or mass identifiable. Left lung field atelectasis changes are prese nt. Motion degradation accentuates lung markings. No pleural thickening or pleural effusion. No pneum othorax. No abnormal mediastinal or hilar masses or lymphadenopathy seen. No gross aortic or pulmonary artery finding suspected. Assessment is limited in the absence of IV contrast. No cardiomegaly or pericardi al effusion. No chest wall mass or abnormal axillary lymphadenopathy. IMPRESSION: Scarring atelectasis changes the lung parenchyma. No mass, infiltrate or acute finding s een. No mediastinal or hilar mass. No pericardial effusion.
[2018-09-03 21:56] LABS: Urine Blood TRACE (NEG); Urine Glucose NEGATIVE (NEG); Urine Protein 2+ (NEG); Urine Specific Gravity >1.030 (1.005-1.030); Urine pH 5.5 (5.0-7.0)
[2018-09-03 22:53] LABS: Calcium Oxalate Crystals- Ur MODERATE (NONE SEEN); Urine Amorphous Sediment 4+ /HPF (NONE SEEN); Urine Bacteria 20-50 /HPF (<20); Urine Culture Reflex Order REFLEXED; Urine RBC NONE SEEN /HPF (NONE SEEN)
[2018-09-03] MEDS ORDERED: ONDANSETRON 4 MG/2 ML VIAL IV PRN (23:44)
[2018-09-03] MEDS ORDERED: ENOXAPARIN 40 MG/0.4 ML SQ SCH (23:44)
[2018-09-04 00:11] VITALS: BMI 22.8
[2018-09-04] MEDS: ENOXAPARIN 80 MG/0.8 ML SQ SCH ×3 (01:07→21:29)
[2018-09-04] MEDS: NA CHLORIDE 0.9% 1,000 ML IV SCH ×3 (01:08→21:29)
--- NOTE | 2018-09-04 03:44 | P.HP ---
Certification for Inpatient Patient admitted to: Inpatient With expected LOS: >2 Midnights Practitioner: I am a practitioner with admitting privileges, knowledge of patient current condition, hospital course, and medical plan of care. Services: Services provided to patient in accordance with Admission requirements found in Title 42 Section 412.3 of the Code of Federal Regulations Patient History Date of Service: 09/03/18 Reason for admission: Pulmonary embolism History of Present Illness: Ms Corley is a 72-year-old woman with history dementia, hypothyroidism, who is does not communicate, she spent most of the time in the bed. She has a chronic pressure ulcer in the left lateral malleolus. Today the patient was walking to the restroom when suddenly collapsed and fell to the ground. Her was with her and noticed that her eyes were rolling back, she started vomiting, I was having shortness of breath. In ER the patient was hypoxic 79% on room air, BP was on the lower side 92/61 and HR 105. X-ray was remarkable for left base infiltrate concerning for pneumonia vs atelectasis. Lab work shows leukocytosis 19.8 K, lactate elevated, procalcitonin within normal limits. She was initially assumed that septic shock secondary to possible pneumonia. However, she was afebrile without cough, troponin I was remarkable elevated 4.11 , EKG showed sinus tachycardia without ST abnormality, T-wave inversion in septal leads which was seen already in previous EKGs. Then D-dimer was ordered , DKA significantly elevated more than 100 K, subsequent CTA chest was remarkable for bilateral PE, extensive but not occlusive. Allergies No Known Allergies Allergy (Verified 07/27/18 00:32) Home medications list reviewed: Yes Home Medications: Aspirin 1 tab PO DAILY 07/27/18 Cholecalciferol (Vitamin D3) [Vitamin D3] 1 cap PO DAILY 07/27/18 Cyanocobalamin (Vitamin B-12) [Vitamin B12] 1 tab PO DAILY 07/27/18 Levothyroxine Sodium 150 mcg PO DAILY 07/27/18 Memantine HCl [Memantine HCl ER] 1 cap PO DAILY 07/27/18 Polyethylene Glycol 3350 [Miralax] 30 ml PO DAILY 07/27/18 Raloxifene HCl 60 mg PO DAILY 07/27/18 Sertraline HCl 2 tab PO DAILY 07/27/18 levETIRAcetam [Levetiracetam] 250 mg PO DAILY 07/27/18 Alendronate Sodium [Fosamax] 35 mg PO EVERY 7TH DAY 08/13/18 Donepezil HCl 1 tab PO DAILY 08/13/18 Docosahexanoic AC/Epa [Fish Oil 1,000 MG*] 1 cap PO DAILY 09/04/18 Ubidecarenone [Co Q-10] 1 cap PO DAILY 09/04/18 - Past Medical/Surgical History Has patient received pneumonia vaccine in the past: Yes Diabetic: No -: Frontal lobe dementia -: Hypothyroidism -: Bladder Suspension Surgery -: Hysterectomy - Family History Father -: Cancer Notes: Lung Cancer Mother -: Lung disease - Social History Smoking Status: Never smoker Alcohol use: No CD- Drugs: No Caffeine use: Yes Place of Residence: Home Review of Systems 10-point ROS is otherwise unremarkable Physical Examination - Vital Signs Temperature: 97.4 F Blood Pressure: 114/72 Pulse: 87 Respirations: 18 Pulse Ox (%): 95 - Physical Exam General: Alert, In no apparent distress, Demented HEENT: Atraumatic, PERRLA, Mucous membr. moist/pink, EOMI, Sclerae nonicteric Neck: Supple, 2+ carotid pulse no bruit, No LAD, Without JVD or thyroid abnormality Respiratory: Normal air movement, Crackles/rales (Bibasilar crackles) Cardiovascular: Regular rate/rhythm, Normal S1 S2 Gastrointestinal: Normal bowel sounds, No tenderness Musculoskeletal: No tenderness Integumentary: No rashes Neurological: Normal tone, Sensation intact, Abnormal affect (Flat) Lymphatics: No axilla or inguinal lymphadenopathy - Studies Laboratory Data (last 24 hrs) 09/03/18 18:53: PT 13.2 H, INR 1.12, APTT 27.4 09/03/18 18:53: WBC 19.8 H, Hgb 14.0, Hct 42.9, Plt Count 224 09/03/18 18:53: Sodium 139, Potassium 3.9, BUN 16, Creatinine 1.00, Glucose 198 H, Total Bilirubin 0.4, AST 32, ALT 27, Alkaline Phosphatase 55, Lipase 238 Microbiology Data (last 24 hrs): 09/03/18 20:05 Nasopharnyx Influenza Type A Antigen Screen - Final 09/03/18 20:05 Nasopharnyx Influenza Type B Antigen Screen - Final Assessment and Plan - Problems (Diagnosis) (1) Pulmonary embolism Current Visit: Yes Status: Acute Qualifiers: Pulmonary embolism type: other Chronicity: acute Acute cor pulmonale presence: without acute cor pulmonale Qualified Code(s): I26.99 - Other pulmonary embolism without acute cor pulmonale (2) Hypothyroidism Current Visit: Yes Status: Acute Qualifiers: Hypothyroidism type: unspecified Qualified Code(s): E03.9 - Hypothyroidism , unspecified (3) Dementia Onset Date: 07/29/18 Current Visit: No Status: Acute Qualifiers: Dementia type: other frontotemporal dementia Dementia behavioral disturbance: without behavioral disturbance Qualified Code(s): G31.09 - Other frontotemporal dementia; F02.80 - Dementia in other diseases classified elsewhere without behavioral disturbance - Plan The patient will be admitted to the hospital due to acute pulmonary embolism. Her BP was initially low but improved after volume replacement. Will continue with full-dose Lovenox, order bilateral lower extremity Doppler, continuous oxygen support. - Advance Directives Does patient have a Living Will: Yes Does patient have a Durable POA for Healthcare: Yes - Code Status/Comfort Care Code Status Assessed: Yes Code Status: Full Code
[2018-09-04 05:45] LABS: Absolute Lymphocytes (CBC) 2.1 K/uL (0.7-4.9); Absolute Monocytes 0.6 K/uL (0.1-1.3); Absolute Neutrophil 7.9 K/uL (1.8-8.0); Basophils % 0.3 % (0-1.3); Eosinophils % 0.2 % (0-4.4); Hematocrit 37.1 % (36.0-45.0); Lymphocytes % 19.8 % (15.3-44.8); MCH 31.9 pg (27.0-35.0); MCV 92.9 fL (80-100); MPV 7.8 fL (7.6-11.3); Monocytes % 5.8 % (3.3-12.3); RBC Red Blood Cell Count 3.99 M/uL (3.86-4.86)
[2018-09-04 06:00] LABS: Albumin 2.8 g/dL (3.4-5.0); Bilirubin Total 0.3 mg/dL (0.2-1.0); Potassium 4.5 mmol/L (3.5-5.1); Protein, Total 6.4 g/dL (6.4-8.2)
[2018-09-04 06:38] LABS: Magnesium 2.3 mg/dL (1.8-2.4)
[2018-09-04] MEDS ORDERED: KCL 20 MEQ/100 mL IVPB 20 MEQ/100 ML BAG IV SCH (07:00)
--- NOTE | 2018-09-04 07:51 | RAD REPORT ---
EXAM DESCRIPTION: CT - Chest For Pe Angio - 09/04/2018 1:30 am CLINICAL HISTORY: shortness of breath COMPARISON: None. TECHNIQUE: Dynamically enhanced axial 3 mm thick images of the chest were obtained during administra tion of <100> mL Isovue 370 IV contrast. Coronal and oblique reconstruction images were generated and reviewed. Exam utilizes a protocol for optimal evaluation of pulmonary arterial tree. Preliminary re port was generated by virtual radiologic and was reviewed prior to dictation Maximum intensity projections 3D imaging was utilized All CT scans are performed using dose optimization technique as appropriate and may include automated exposure control or mA/KV adjustment according to patient size. FINDINGS: Thrombus is present within the peripheral right main pulmonary artery extending into right upper, right middle and right lower lobe arteries. Thrombus is also visualized within a segmental an d subsegmental left upper and lower lobe arteries. Main pulmonary artery does not contain thrombus. A thoracic aortic aneurysm is not noted. A pleural effusion is not seen. A pericardial effusion is not seen. A lung consolidation is not present. IMPRESSION: Bilateral pulmonary emboli
--- NOTE | 2018-09-04 08:25 | EKG ---
Test Date: 2018-09-04 Test Time: 07:45:13 Carpet Loom Fixer: FARZANEH MEASUREMENT RESULTS: Intervals: Rate: 79 AZ: 160 QRSD: 74 QT: 400 QTc: 458 [place]: P: 79 [place]: 160 QRS: 28 T: 50 INTERPRETIVE STATEMENTS: Normal sinus rhythm Low voltage QRS Borderline ECG Compared to ECG 09/03/2018 18:40:44 Low QRS voltage now present Sinus tachycardia no longer present Electronically Signed On 09-04-18 08:24:27 CDT by Sarthak Quintero
[2018-09-04] MEDS: ASPIRIN 81 MG CHEWABLE TABLET PO SCH (08:32)
[2018-09-04] MEDS ORDERED: ENOXAPARIN 80 MG/0.8 ML SQ SCH (09:00)
--- NOTE | 2018-09-04 10:27 | EKG ---
Test Date: 2018-09-03 Test Time: 18:40:44 Living Specialist: ELISABET MEASUREMENT RESULTS: Intervals: Rate: 111 LA: 158 QRSD: 84 QT: 334 QTc: 454 [place]: P: 68 LA: 158 QRS: 32 T: 24 INTERPRETIVE STATEMENTS: Sinus tachycardia Otherwise normal ECG Compared to ECG 07/26/2018 19:32:56 Sinus rhythm no longer present Electronically Signed On 09-04-18 10:26:13 CDT by Sarthak Quintero
--- NOTE | 2018-09-04 13:27 | RAD REPORT ---
EXAM DESCRIPTION: US - Extrem Venous W Compress [place] - 09/04/2018 1:18 pm CLINICAL HISTORY: pulmonary embolis Bilateral leg edema and swelling. COMPARISON: Ankle Left Wo Con dated 07/26/2018 TECHNIQUE: Real-time sonographic interrogation of the left and right lower extremity deep venous sys tems was performed. FINDINGS: Normal compressibility, flow augmentation, phasic flow and spontaneous flow is identified in both the left and right lower extremity deep venous systems. IMPRESSION: No sonographic evidence of left or right lower extremity deep venous thrombosis.
--- NOTE | 2018-09-04 13:57 | CON ---
CARDIOLOGY CONSULT History Of Present Illness: Mrs. Corley is 72-year-old. She was brought to the hospital by her hus band. She had a loss of consciousness spell. He was holding her up when she suddenly lost any leg s trength. He eased her to the ground. There was a shaking which she has a lot and there was bladder and bowel incontinence and then several hours of confusion, and now she appears to be much better. I am called because her troponins are elevated. The patient does not have a history of heart trouble, no history of myocardial infarction or stroke or diabetes. Does not use tobacco. No history of any vascular disease. She has severe dementia, and several months ago was placed on Lamictal, and it is not clear the neurologist was treating what he thought might have been seizures or something else. Apparently, she was having spells where her arms would become shaky. Physical Examination: General: The patient is 5 feet 8, 180 pounds. She is alert, completely non-conversational, does not appear to be in any distress. Lungs: Clear. Heart Exam: Within normal limits. Abdomen: Soft. Extremities: Unremarkable. Distal pulses are normal. There is a sore on the left heel. We have some indication that she probably has normal-pressure hydrocephalus contributing to her demen tia, and at some point, there was a plan made to put a ventriculoperitoneal shunt that has been cance led because of wounds on her heels. They appeared to be pressure ulcers from lying in bed and not markham ving heel protection on. Her electrocardiogram shows normal sinus rhythm, low voltage, otherwise it is normal. Impression: My impression is that this patient may have had some myocardial necrosis. I think it ma y be that she had a grand mal seizure, I cannot be certain, but I am certainly suspicious. I think d oing an echocardiogram might be useful. It would tell us whether or not she has had a myocardial inf arction or at least a myocardial infarction of any appreciable size. I think the troponins could be up just from seizure activity. The patient is definitely not somebody that I would recommend doing a heart catheterization or putting the stent in. BRIA/APRIL Voice ID: [id number] Report ID: [id number]
--- NOTE | 2018-09-04 15:51 | ECHO ---
HEIGHT: 5 ft 8 in WEIGHT: 150 lb 1 oz DATE OF STUDY: 09/04/[address]: Sartahk Quintero MD 2-DIMENSIONAL: YES M.MODE: YES DOPPLER: YES COLOR FLOW: YES TDS: YES PORTABLE: NO DEFINITY: NO BUBBLE STUDY: NO DIAGNOSIS: ABNORMAL TROPONIN CARDIAC HISTORY: CATHERIZATION: NO SURGERY: NO PROSTHETIC VALVE: NO PACEMAKER: NO MEASUREMENTS (cm) DIASTOLIC (NORMALS) SYSTOLIC (NORMALS) IVSd 0.9 (0.6-1.2) LA Diam 3.2 (1.9-4.0) LVEF 54% LVIDd 3.2 (3.5-5.7) LVIDs 2.3 (2.0-3.5) %FS 27% LVPWd 0.9 (0.6-1.2) Ao Diam 3.1 (2.0-3.7) 2 DIMENSIONAL ASSESSMENT: RIGHT ATRIUM: NORMAL LEFT ATRIUM: NORMAL RIGHT VENTRICLE: MILDLY DILATED LEFT VENTRICLE: NORMAL TRICUSPID VALVE: NORMAL MITRAL VALVE: NORMAL PULMONIC VALVE: NORMAL AORTIC VALVE: NORMAL PERICARDIAL EFFUSION: NONE AORTIC ROOT: NORMAL LEFT VENTRICULAR WALL MOTION: NORMAL. DOPPLER/COLOR FLOW: MILD TRICUSPID REGURGITATION. NORMAL RIGHT VENTRICULAR SYSTOLIC PRESSURE. COMMENTS: NORMAL LEFT VENTRICULAR EJECTION FRACTION. MILDLY DILATED RIGHT VENTRICLE. MILD TRICUSPID REGURGITATION. TECHNOLOGIST: DAVIDSON MAYEN
[2018-09-05] MEDS: NA CHLORIDE 0.9% 1,000 ML IV SCH ×4 (05:44→17:40)
[2018-09-05] MEDS: DOCOSAHEXANOIC AC/EPA 1000 MG PO SCH (09:00)
[2018-09-05] MEDS: RALOXIFENE HCL 60 MG TAB PO SCH (09:00)
[2018-09-05] MEDS ORDERED: LEVETIRACETAM 250 MG PO SCH (09:00)
[2018-09-05] MEDS ORDERED: HOME MED 1 EA UNK (Cholecalciferol (Vitamin D3) [Vitamin D3] 1 CAP) PO SCH (09:00)
[2018-09-05] MEDS ORDERED: HOME MED 1 EA UNK (Cyanocobalamin (Vitamin B-12) [Vitamin B12] 1 TAB) PO SCH (09:00)
[2018-09-05] MEDS ORDERED: HOME MED 1 EA UNK (Levothyroxine Sodium [Levothyroxine Sodium] 150 MCG) PO SCH (09:00)
[2018-09-05] MEDS ORDERED: HOME MED 1 EA UNK (Donepezil Hcl [Donepezil Hcl] 1 TAB) PO SCH (09:00)
[2018-09-05] MEDS ORDERED: [UNRECOGNIZED DRUG - OTHER] PO SCH (09:00)
[2018-09-05] MEDS: SERTRALINE HCL 50 MG TAB PO SCH (09:00)
[2018-09-05] MEDS ORDERED: MEMANTINE HCL PO SCH (09:00)
[2018-09-05] MEDS: ASPIRIN 81 MG CHEWABLE TABLET PO SCH (09:00)
[2018-09-05] MEDS: ENOXAPARIN 80 MG/0.8 ML SQ SCH ×2 (09:27→22:34)
[2018-09-05] MEDS: levETIRAcetam 250 MG in NA CHLORIDE 0.9% 100 ML IV SCH (15:20)
[2018-09-05] MEDS ORDERED: LIDOCAINE VISCOUS 2% SOLN 15 ML UDC TOP ONE (15:30)
--- NOTE | 2018-09-05 19:01 | CON ---
Consultation called by Dr. Nials because of seizure. History Of Present Illness: Ms. Corley is a 72-year-old patient, whom I had seen 7 years ago for mi ld cognitive impairment. She did not return for a followup visit. The patient's is in the r oom and he did mention that she actually followed up with a neurologist in [place], and as her malik ia progressed, various etiologies for her dementia were described to either a Pick disease or a front otemporal dementia or vascular dementia or normal-pressure hydrocephalus. The patient's said that was the last diagnosis that the neurologist had settled on and had planned to do a ventriculope ritoneal shunt to help address this issue. It should be noted that at the patient's baseline, she is noncommunicative. She does not communicate by verbal means. 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 In any event, he was planning to do the normal-pressure hydrocephalus shunt when she developed a foot infection and wa s then derailed from that procedure. Along the way, the patient apparently had seizure-like activity . The said that she would be less interactive and would shake her arms. The neurologist in [place] started her on Keppra. However, he started her on a very high dosage of a 1000 mg twice a da y without the titration. The patient's noted that she became very somnolent and lethargic an d was poorly interactive, and he eventually cut the medication back and was just giving her half of 5 00 or 250 mg at night. He said that prior to this hospital admission or actually the reason for the admission was what looked like seizure-like activity where she was shaking all over after sudden skyler apse. She was walking to the restroom and that happened. When she fell, eyes rolled back, she vomit ed, lost urine control. She did remain very confused for a prolonged period of time. She was ann-marie t into [facility]. Her oxygen level was low at 79% on room air. Blood pressure was down to 92/63, pulse of 150. The chest x-ray showed a potential left base infiltrate concerning for pneumon ia. White blood cell count was elevated, but she had negative procalcitonin and she was afebrile. I t should be noted that the troponins were elevated, and it that may have been from a seizure and she is however being evaluated by the critical care physician. In parallel with this, she subsequently was found to have deep vein thrombosis related pulmonary embolus bilaterally, but they are not occlusive. She is being treated for that with high-dose anticoagulation. The patient's reports that she is at her baseline level of communication where she may smile and turn towards sounds but not follow commands and she does not verbalize. She has not had addition al seizure activity despite Keppra not being restarted. 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 Allergies: NO KNOWN DRUG ALLERGIES. Past Surgical History: Bladder suspension and hysterectomy. Medications: Aspirin 81 mg daily, vitamin D 1 capsule daily, vitamin B12 daily, levothyroxine 150 mc g daily, and memantine 10 mg daily, MiraLAX 30 mL daily as needed, raloxifene 60 mg daily, sertraline 2 tablets daily, Keppra 250 mg daily, Fosamax 35 mg every Sunday, benazepril 10 mg daily, fish oil daily, CoQ10 daily. Family History: Positive for lung cancer in father and lung disease in mother. Social History: No alcohol, tobacco, or IV drug use. The patient resides at home with . Review of Systems: No recent fevers or chills aside from the seizure. No nausea or vomiting. There is foot pain, and s he had recent left arm surgery, and there was mild pain prior to this hospitalization there, but no o ther positives on a 10-point systems review other than stated above. Physical Examination: Vital Signs: Blood pressure 124/60, pulse 70, respiratory rate 16, temperature 98.3, and oxygen satu ration 99% on oxygen inspired FiO2 of 35. Weight 153 pounds, height 5 feet 8 inches, BMI 22.8. General: Ms. Corley is resting in bed. She is alert. She does follow faces. She is normocephalic , atraumatic. Sclerae anicteric. Oropharynx is moist and pink. Neck: Supple. Chest: Clear. Heart: Regular. Extremities: Show no significant edema or cyanosis. She does have a bandage wrapped on the left arm and leg. Her coordination in the upper extremities, difficult to fully assess. She is not followin g commands to be evaluated properly. Unable to assess gait, full strength, or sensory examination an d does not appear to have focal deficits on observation and interactions. Laboratory Studies: White blood cell count 10.7, yesterday was 19.8, and there was no neutrophil julio cesar ft yesterday, it was 70.8, today 73.9. Hemoglobin and hematocrit are normal. Her D-dimer is elevate d to 111,410. INR 1.12. Blood gas shows pH 7.42, pCO2 35.8, PO2 low at 57.8. Chemistries; sodium 1 40, potassium 4.5, chloride 110 , carbon dioxide 25, BUN 14, creatinine 0.8, glucose 134. Lactic aci d was elevated at 3.9. Rapid troponin was at 1.95 and now 0.59. Liver function studies show slightl y elevated AST of 39, ALT 30, alkaline phosphatase 43. Urinalysis shows moderate calcium oxalate cry stals, 4+ amorphous sediment, 20-50 bacteria, 2+ protein, trace blood. Echocardiogram ejection fraction of 54%, mildly dilated right ventricle and mild tricuspid right regu rgitation. Electrocardiogram shows normal sinus rhythm, low voltage QRS, and borderline ECG. Extrem ity Doppler shows no sonographic evidence of left or right deep vein thrombus. Chest, thorax CT jovon ogram shows bilateral pulmonary emboli. Assessment: Ms. Corley is a 72-year-old patient with likely a primary progressive aphasia versus a frontotemporal dementia. She also apparently has complex partial seizures with secondary generalizat ion. She has since had left arm surgery, left leg surgery, and likely had a seizure in the setting o f infection and withdrawing from the Keppra. In addition, she does have an increased propensity for seizures given her advanced dementia. She is at her baseline level of functioning at this point. Plan: We will restart Keppra 250 mg IV for a week, then 250 mg twice daily if she is able to swallow , she will have her medications orally, after another week, so the 250 mg in the morning and 500 mg a t night, then after another week, 500 mg twice a day. The patient may have Keppra blood level checked 1 week after that for maintenance dosage. Next after discharge, followup with Dr. Trejo in clinic 1 month. ANA ROSA/APRIL Voice ID: [id number] Report ID: [id number]
[2018-09-06] MEDS: NA CHLORIDE 0.9% 1,000 ML IV SCH ×4 (01:44→21:13)
[2018-09-06 07:52] LABS: Absolute Lymphocytes (CBC) 1.2 K/uL (0.7-4.9); Absolute Monocytes 0.4 K/uL (0.1-1.3); Absolute Neutrophil 5.8 K/uL (1.8-8.0); Basophils % 0.4 % (0-1.3); Eosinophils % 1.2 % (0-4.4); Hematocrit 33.9 % (36.0-45.0); Lymphocytes % 15.7 % (15.3-44.8); MCH 31.4 pg (27.0-35.0); MCV 94.2 fL (80-100); MPV 7.9 fL (7.6-11.3); Monocytes % 5.8 % (3.3-12.3)
[2018-09-06 08:07] LABS: BUN Blood Urea Nitrogen 8 mg/dL (7-18); Bicarbonate 22 mmol/L (21-32); Glucose Level 91 mg/dL (74-106); Magnesium 2.2 mg/dL (1.8-2.4); Potassium 3.6 mmol/L (3.5-5.1); Sodium Level 141 mmol/L (136-145)
[2018-09-06] MEDS ORDERED: KCL 20 MEQ/100 mL IVPB 20 MEQ/100 ML BAG IV SCH (09:00)
[2018-09-06] MEDS: SERTRALINE HCL 50 MG TAB PO SCH (09:00)
[2018-09-06] MEDS: DOCOSAHEXANOIC AC/EPA 1000 MG PO SCH (09:00)
[2018-09-06] MEDS: COLLAGENASE 30 GM OINTMENT TOP SCH (09:00)
[2018-09-06] MEDS: ASPIRIN 81 MG CHEWABLE TABLET PO SCH (09:00)
[2018-09-06] MEDS: RALOXIFENE HCL 60 MG TAB PO SCH (09:00)
[2018-09-06] MEDS: levETIRAcetam 250 MG in NA CHLORIDE 0.9% 100 ML IV SCH (09:34)
[2018-09-06] MEDS: ENOXAPARIN 80 MG/0.8 ML SQ SCH (10:41)
--- NOTE | 2018-09-06 15:26 | RAD REPORT ---
EXAM DESCRIPTION: RAD - Barium Swallow Modified - 09/06/2018 3:17 pm CLINICAL HISTORY: Choking and cough FINDINGS: FLURO TIME: 4:15 min 20 fluoroscopic spot series obtained Reduced lingual coordenation. Moderate delay in swallow. No penetration or aspiration observed. Barium tablet remained in esophagus momentarily. passed with liquid wash.
[2018-09-06 16:11] LABS: Absolute Lymphocytes (CBC) 1.8 K/uL (0.7-4.9); Absolute Monocytes 0.5 K/uL (0.1-1.3); Basophils % 0.6 % (0-1.3); Eosinophils % 0.6 % (0-4.4); Hematocrit 31.8 % (36.0-45.0); Lymphocytes % 21.2 % (15.3-44.8); MCV 93.3 fL (80-100); MPV 8.1 fL (7.6-11.3); Monocytes % 5.7 % (3.3-12.3)
--- NOTE | 2018-09-06 17:51 | P.CNS ---
Date of Consult: 09/06/18 Reason for Consult: Pulmonary emboli and thrombocytopenia Chief Complaint: Pulmonary embolism History of Present Illness: Patient is 72 years of age with a history of frontal lobe dementia apparently she fell a few months ago and that she then developed seizures according to patient became very weak and he admitted her to the hospital was diagnosed to have bilateral pulmonary emboli prior to 6 months ago patient was ambulating she is nonverbal no prior history of cardiopulmonary problems Allergies No Known Allergies Allergy (Verified 07/27/18 00:32) Home Medications: Aspirin 1 tab PO DAILY 07/27/18 Cholecalciferol (Vitamin D3) [Vitamin D3] 1 cap PO DAILY 07/27/18 Cyanocobalamin (Vitamin B-12) [Vitamin B12] 1 tab PO DAILY 07/27/18 Levothyroxine Sodium 150 mcg PO DAILY 07/27/18 Memantine HCl [Memantine HCl ER] 1 cap PO DAILY 07/27/18 Polyethylene Glycol 3350 [Miralax] 30 ml PO DAILY 07/27/18 Raloxifene HCl 60 mg PO DAILY 07/27/18 Sertraline HCl 2 tab PO DAILY 07/27/18 levETIRAcetam [Levetiracetam] 250 mg PO DAILY 07/27/18 Alendronate Sodium [Fosamax] 35 mg PO EVERY 7TH DAY 08/13/18 Donepezil HCl 1 tab PO DAILY 08/13/18 Docosahexanoic AC/Epa [Fish Oil 1,000 MG*] 1 cap PO DAILY 09/04/18 Ubidecarenone [Co Q-10] 1 cap PO DAILY 09/04/18 - Past Medical/Surgical History Diabetic: No -: Frontal lobe dementia -: Hypothyroidism -: Bladder Suspension Surgery -: Hysterectomy - Family History Father Medical History: Cancer Notes: Lung Cancer Mother Medical History: Lung disease - Social History Smoking Status: Never smoker Alcohol use: No CD- Drugs: No Caffeine use: Yes Place of Residence: Home Review of Systems is unable to be obtained Physical Examination Temp Pulse Resp BP Pulse Ox 99.0 F 70 16 126/62 95 09/06/18 16:00 09/06/18 16:00 09/06/18 16:00 09/06/18 16:00 09/06/18 16:00 General: Alert, Other (Nonverbal) HEENT: Atraumatic Neck: Supple Cardiovascular: No edema Gastrointestinal: Normal bowel sounds Musculoskeletal: Other (Patient has some decubitus ulcers on her heels) - Problems (1) Pulmonary embolism Onset Date: 09/04/18 Current Visit: Yes Status: Acute Plan: Patient is 72 years of age with a history of progressive frontal lobe dementia associated with seizures admitted with bilateral pulmonary emboli patient is hemodynamically stable there is a significant drop in her platelet count was start patient on Arixtra he had to be anti coagulated indefinitely patient was hypoxic on admission patient is mildly anemic vital signs satisfactory oxygenation satisfactory I however doubt that she she has thrombocytopenia induced by heparin or Lovenox can be changed to oral Xarelto no aspiration observed no evidence of deep venous thrombosis patient to start on a liquid diet if she tolerates it wait for another day or so before changing her over to oral Xarelto 15 mg twice a day for 3 weeks and then 20 mg once a day Qualifiers: Pulmonary embolism type: other Chronicity: acute Acute cor pulmonale presence: without acute cor pulmonale Qualified Code(s): I26.99 - Other pulmonary embolism without acute cor pulmonale
[2018-09-06] MEDS ORDERED: FONDAPARINUX SOD 2.5 MG/0.5 ML SQ SCH (21:00)
[2018-09-06] MEDS: FONDAPARINUX SOD 7.5 MG/0.6 ML SQ SCH (21:10)
[2018-09-07] MEDS: NA CHLORIDE 0.9% 1,000 ML IV SCH ×3 (04:19→22:02)
[2018-09-07 05:42] LABS: BUN Blood Urea Nitrogen 6 mg/dL (7-18); Bicarbonate 23 mmol/L (21-32); Glucose Level 114 mg/dL (74-106); Potassium 3.1 mmol/L (3.5-5.1); Sodium Level 140 mmol/L (136-145)
[2018-09-07] MEDS: KCL 20 MEQ/100 mL IVPB 20 MEQ/100 ML BAG IV SCH ×3 (06:39→22:03)
[2018-09-07] MEDS: levETIRAcetam 250 MG in NA CHLORIDE 0.9% 100 ML IV SCH (10:21)
[2018-09-07] MEDS: RALOXIFENE HCL 60 MG TAB PO SCH (10:21)
[2018-09-07] MEDS: COLLAGENASE 30 GM OINTMENT TOP SCH (10:21)
[2018-09-07] MEDS: SERTRALINE HCL 50 MG TAB PO SCH (10:22)
[2018-09-07] MEDS: DOCOSAHEXANOIC AC/EPA 1000 MG PO SCH (10:22)
[2018-09-07] MEDS: ASPIRIN 81 MG CHEWABLE TABLET PO SCH (10:23)
[2018-09-07 13:31] LABS: Absolute Lymphocytes (CBC) 2.1 K/uL (0.7-4.9); Absolute Monocytes 0.7 K/uL (0.1-1.3); Absolute Neutrophil 8.1 K/uL (1.8-8.0); Basophils % 0.5 % (0-1.3); Eosinophils % 0.8 % (0-4.4); Hematocrit 35.5 % (36.0-45.0); Lymphocytes % 18.9 % (15.3-44.8); MCH 31.5 pg (27.0-35.0); MCV 91.7 fL (80-100); MPV 8.1 fL (7.6-11.3); Monocytes % 6.1 % (3.3-12.3); RBC Red Blood Cell Count 3.87 M/uL (3.86-4.86)
[2018-09-07] MEDS: ACETAMINOPHEN 500 MG TAB PO PRN (18:06)
--- NOTE | 2018-09-07 19:03 | PN ---
Subjective: The patient is tolerating solids and liquids. She takes some time to chew. Overall see ms to be back to baseline according to her . Her vital signs are stable. White count was sli ghtly elevated, suspect possibly secondary to the wound infections. Therefore, she was placed on Aug mentin and IV fluids were discontinued. She placed on a saline lock and if things go properly, then she probably could be transferred to SNF unit on Sunday. HR/MODL Voice ID: [id number] Report ID: [id number]
--- NOTE | 2018-09-07 20:36 | PN ---
Date of Progress Note: 09/06/2018 Subjective: The patient has improved as far as her responsiveness is concerned, this is probably a b aseline. However, she has developed a significant platelet drop some of the secondary to Lovenox. C onsultation was therefore obtained with Dr. Montgomery for her pulmonary status and switching over to o ral medication and/or in the immediate onset, Arixtra. The arm incision which was done for release o f tenderness for finger spasticity with plastic surgeon in [place] looked good. Alternate stitches w ere removed. However, the ulceration on her right medial malleolus is still quite inflamed. The lef t area still has some necrotic tissue on there; however, it was debrided with some difficulty due to the pain. We will continue with the IV antibiotics. Start her on food and fluids as she had no evid ence of any aspiration on the barium swallow seen by speech therapy and discussion was held with disp osition to skilled nursing for the 20-21 day. To probably be ready to transfer on Sunday morning with a ny other complications. HR/MODL Voice ID: [id number] Report ID: [id number]
[2018-09-07] MEDS: FONDAPARINUX SOD 7.5 MG/0.6 ML SQ SCH (21:25)
[2018-09-07] MEDS: AMOX/K CLAV 875 MG TAB PO SCH (21:25)
[2018-09-08] MEDS: KCL 20 MEQ/100 mL IVPB 20 MEQ/100 ML BAG IV SCH (00:12)
[2018-09-08] MEDS: NA CHLORIDE 0.9% 1,000 ML IV SCH (03:44)
[2018-09-08 07:42] LABS: BUN Blood Urea Nitrogen 6 mg/dL (7-18); Bicarbonate 26 mmol/L (21-32); Glucose Level 112 mg/dL (74-106); Potassium 3.7 mmol/L (3.5-5.1); Sodium Level 139 mmol/L (136-145)
[2018-09-08] MEDS: levETIRAcetam 250 MG in NA CHLORIDE 0.9% 100 ML IV SCH (10:41)
[2018-09-08] MEDS: DOCOSAHEXANOIC AC/EPA 1000 MG PO SCH (10:42)
[2018-09-08] MEDS: AMOX/K CLAV 875 MG TAB PO SCH ×2 (10:42→20:31)
[2018-09-08] MEDS: SERTRALINE HCL 50 MG TAB PO SCH (10:42)
[2018-09-08] MEDS: RALOXIFENE HCL 60 MG TAB PO SCH (10:43)
[2018-09-08] MEDS: ACETAMINOPHEN 500 MG TAB PO PRN (10:43)
[2018-09-08] MEDS: ASPIRIN 81 MG CHEWABLE TABLET PO SCH (10:43)
[2018-09-08] MEDS: COLLAGENASE 30 GM OINTMENT TOP SCH (10:44)
[2018-09-08] MEDS ORDERED: POTASSIUM CL SA 10 MEQ TAB PO ONE (10:45)
--- NOTE | 2018-09-08 11:28 | PN ---
Admitted to Dr. Nails's service on 09/03/2018 with sepsis and elevated troponin. Dr. Quintero saw th e patient on 09/04/2018. The thoughts were that she had elevated troponin probably secondary to seiz ure disorder rather than ND. An echocardiogram, which was done on 09/04/2018, showed no wall motion abnormalities. No effusion. Normal ejection fraction. Today, the patient is not a candidate for an y further cardiac workup at this point. She can go home whenever it is okay with Dr. Nails. ANALY/ALBAL Voice ID: [id number] Report ID: [id number]
--- NOTE | 2018-09-08 11:40 | PN ---
Admitted to Dr. Nails's service on 09/03/2018 with sepsis and elevated troponin. Dr. Quintero saw th e patient on 09/04/2018. The thoughts were that she had elevated troponin probably secondary to seiz ure disorder rather than ME. An echocardiogram, which was done on 09/04/2018, showed no wall motion abnormalities. No effusion. Normal ejection fraction. The patient is not a candidate for any [facility] cardiac workup at this point. She can go home whenever it is okay with Dr. Nails. ANALY/ALBAL Voice ID: [id number] Report ID: [id number]
--- NOTE | 2018-09-08 13:49 | CON ---
Date of Consultation: 09/07/2018 Reason: The patient has sutures in her left wrist, that need to be removed. History Of Present Illness: The patient is a 72-year-old female, who had a tendon release of her lef t hand because of mechanical issues, and she was admitted last week with pulmonary embolus, and it wa s a time for the sutures to be removed, however, it was very difficult and I was consulted. She is a phasic, and she has some dementia. She is unable to provide an adequate review of systems. History is obtained from the family. Review of Systems: Otherwise unremarkable. Past Medical History: Significant for frontal lobe dementia, hypothyroidism, and recent PE. Past Surgical History: Bladder suspension surgery, hysterectomy. Allergies: NONE. Medications: Reviewed. Family History: Significant for lung cancer in the father and lung disease in the mother. She does not smoke or drink. Physical Examination: Vital Signs: Stable. She is currently afebrile. General: She is awake, unable to verbalize anything. Head and Neck: No masses. Chest: Clear. Heart: S1, S2. Abdomen: Soft. Extremities: Neurovascularly intact. Neuro: Nonfocal. In left forearm and wrist and proximal palmar crease, there is incision with mattr ess sutures; there is no sign of infection. Laboratory Data: Reviewed. Assessment: A 72-year-old female with multiple medical problems, pulmonary embolism, with a wound on the left wrist, needs suture removal. Recommendations: At the bedside, we removed the suture with tenotomy scissors and Adson pickups, the se were mattress sutures. This was done without difficulty, and wound care instructions were given. Please re-consult surgery piban GALVIN/APRIL Voice ID: [id number] Report ID: [id number]
[2018-09-08] MEDS: RIVAROXABAN 15 MG TABLET PO SCH (17:33)
[2018-09-09 06:36] LABS: BUN Blood Urea Nitrogen 7 mg/dL (7-18); Bicarbonate 27 mmol/L (21-32); Glucose Level 97 mg/dL (74-106); Potassium 3.6 mmol/L (3.5-5.1); Sodium Level 140 mmol/L (136-145)
[2018-09-09] MEDS ORDERED: KCL 20 MEQ/100 mL IVPB 20 MEQ/100 ML BAG IV SCH (07:30)
--- NOTE | 2018-09-09 08:37 | P.PN ---
Subjective Date of Service: 09/09/18 Chief Complaint: Pulmonary embolism Subjective: Improving (Patient is doing well eating and drinking hemodynamically stable oxygenation satisfactory) Review of Systems is unable to be obtained Physical Examination - Vital Signs Temperature: 97.5 F Blood Pressure: 119/63 Pulse: 76 Respirations: 18 Pulse Ox (%): 94 - Physical Exam General: Alert Respiratory: Clear to auscultation bilaterally - Studies Microbiology Data (last 24 hrs): 09/03/18 18:53 Blood - Blood Aerobic Blood Culture - Final No growth in 5 days. 09/03/18 18:53 Blood - Blood Anaerobic Blood Culture - Final No growth in 5 days. Assessment & Plan - Problems (Diagnosis) (1) Pulmonary embolism Onset Date: 09/04/18 Current Visit: Yes Status: Acute Plan: Patient is 72 years of age admitted with pulmonary embolism doing well the eating and drinking agree with Xarelto 15 mg twice a day for 3 weeks then 20 mg once a day after 3 months consider changing to 10 mg once a day for an indefinite. Duration labs reviewed cultures negative oxygenation satisfactory Qualifiers: Pulmonary embolism type: other Chronicity: acute Acute cor pulmonale presence: without acute cor pulmonale Qualified Code(s): I26.99 - Other pulmonary embolism without acute cor pulmonale
[2018-09-09] MEDS: DOCOSAHEXANOIC AC/EPA 1000 MG PO SCH (09:00)
[2018-09-09] MEDS: ASPIRIN 81 MG CHEWABLE TABLET PO SCH (09:30)
[2018-09-09] MEDS: AMOX/K CLAV 875 MG TAB PO SCH ×2 (09:30→22:07)
[2018-09-09] MEDS: levETIRAcetam 250 MG in NA CHLORIDE 0.9% 100 ML IV SCH (09:30)
[2018-09-09] MEDS: SERTRALINE HCL 50 MG TAB PO SCH (09:30)
[2018-09-09] MEDS: COLLAGENASE 30 GM OINTMENT TOP SCH (09:31)
[2018-09-09] MEDS: RALOXIFENE HCL 60 MG TAB PO SCH (09:31)
[2018-09-09] MEDS: RIVAROXABAN 15 MG TABLET PO SCH ×2 (09:31→18:34)
--- NOTE | 2018-09-09 13:07 | PN ---
Addendum: In regard to her pressure ulcers of the left and right heel, the left heel has been underg oing treatment at the [facility] with various modalities, and antibiotics were recently added to it , difficult to debride because of the pain. The pressure ulcer on the right is new. She states, acco rding to the , has been there for the past few days and will be treated aggressively with debr idement and Bactroban. Also, supports will be given so that the patient's pressure will be reduced, however, basically the patient is nonmobile. HR/MODL Voice ID: [id number] Report ID: [id number]
--- NOTE | 2018-09-09 19:52 | PN ---
Date of Progress Note: 09/09/2018 Subjective: The patient is sitting up in the chair now. However, she cannot do any walking at [facility]. Physical therapy has worked with her as far as her central nervous system is concerned, she can switch over to p.o. medications. Has no indication of any seizure activity. The wounds have scabbed over. No areas of cellulitis. I feel she can be transferred to a SNF possibly tomorrow to continue on her present regimen. HR/MODL Voice ID: [id number] Report ID: [id number]
[2018-09-09] MEDS: levETIRAcetam 500 MG TAB PO SCH (22:06)
[2018-09-10 06:58] LABS: Magnesium 2.2 mg/dL (1.8-2.4); Potassium 4.1 mmol/L (3.5-5.1)
[2018-09-10] MEDS: DOCOSAHEXANOIC AC/EPA 1000 MG PO SCH (09:00)
[2018-09-10] MEDS: RIVAROXABAN 15 MG TABLET PO SCH (09:56)
[2018-09-10] MEDS: SERTRALINE HCL 50 MG TAB PO SCH (09:56)
[2018-09-10] MEDS: levETIRAcetam 500 MG TAB PO SCH (09:56)
[2018-09-10] MEDS: RALOXIFENE HCL 60 MG TAB PO SCH (09:56)
[2018-09-10] MEDS: ASPIRIN 81 MG CHEWABLE TABLET PO SCH (09:56)
[2018-09-10] MEDS: AMOX/K CLAV 875 MG TAB PO SCH (09:57)
[2018-09-10] MEDS: COLLAGENASE 30 GM OINTMENT TOP SCH (09:57)
[2018-09-10 14:14] VITALS: BP 94/65; TEMP 97.3
[2018-09-10 14:48] VITALS: O2SAT 93
--- NOTE | 2018-09-11 00:06 | PN ---
Date of Progress Note: 09/10/2018 The patient is basically status quo. She is tolerating her food. Arrangements have been made to tra nsfer her to SNF unit at which time she will be followed by either in-house physician and Infectious Disease in regard to her antibiotics and wound care. She should require debridement in a couple of d ays. The antiepileptic medicine was also given to her, to be followed by a blood level in a few days as ordered by Dr. Trejo. Antibiotics were given orally as well as topically. She is to follow u p either in the Wound Care or at the time of discharge with myself, Dr. Trejo. Discharge in fair condition, actually back to baseline as far as activity and orientation are concerned. Will require more physical therapy as she still is not able to walk by herself. This should be done at the SNF as well. Has no further evidence of seizure disorder. She was maintained on her blood thinners due to the PE as well. HR/MODL Voice ID: [id number] Report ID: [id number]
[2018-09-11] MEDS ORDERED: ALENDRONATE SODIUM 35 MG PO SCH (09:00)
== END 2018-09-10 15:50 | DRG 176 ==
LOC: ER 18:10 → ERHOLD 20:40 → 2ND 22:54
PROVIDERS: ADMIT Internal Medicine; ATTEND Family Medicine
DX: I26.99 Other pulmonary embolism without acute cor pulmonale (principal); G40.209 Localization-related (focal) (partial) symptomatic epilepsy and epileptic syndromes with complex partial seizures, not intractable, without status epilepticus; E03.9 Hypothyroidism, unspecified; G31.09 Other frontotemporal neurocognitive disorder; F02.80 Dementia in other diseases classified elsewhere, unspecified severity, without behavioral disturbance, psychotic disturbance, mood disturbance, and anxiety; Z80.1 Family history of malignant neoplasm of trachea, bronchus and lung; L89.629 Pressure ulcer of left heel, unspecified stage; L89.619 Pressure ulcer of right heel, unspecified stage
CPT/HCPCS: 36415; 51702; 71045; 71250; 71275; 74230; 80048; 80053; 80076; 80177; 81003; 81015; 82550; 82553; 82805; 82962; 83605; 83690; 83735; 84132; 84145; 84484; 85025; 85379; 85610; 85730; 87040; 87086; 87088; 87804; 93005; 93306; 93970; 94760; 97163; 99285; J0692; J1650; J1652; J1953; J3370; J3590; J7030; Q9967